=== PATIENT | female | born 1965 ===

== ENCOUNTER → 2020-04-22 08:02 | Outpatient (BNVA) | payer MEDICARE, MEDICAID, SELFPAY | PROVIDERS: PCP Internal Medicine; Referring Provider Internal Medicine; Visit Provider Internal Medicine Endocrinology, Diabetes & Metabolism | DX: Z13.89 Encounter for screening for other disorder (principal) | CPT/HCPCS: 99213 ==

== ENCOUNTER 2020-05-19 07:17 | Outpatient (REF) | payer MEDICARE, MEDICAID, SELFPAY ==
[2020-05-20 22:03] LABS: Adrenocorticotropic Hormone 6 pg/mL (6-50)
[2020-05-26 23:16] LABS: Dexamethasone 179 ng/dL
== END 2020-05-19 07:18 | disposition home or self-care (01) ==
LOC: HO.LAB 07:17
PROVIDERS: PCP Internal Medicine; Visit Provider Internal Medicine Endocrinology, Diabetes & Metabolism
DX: D35.02 Benign neoplasm of left adrenal gland (principal)
CPT/HCPCS: 80299; 82024; 82533

== ENCOUNTER 2020-05-26 06:58 | Outpatient (REF) | payer MEDICARE, MEDICAID, SELFPAY ==
[2020-05-26 08:22] LABS: Free T4 (Free Thyroxine) 1.04 ng/dL (0.71-1.85); Thyroid Stimulating Hormone 0.42 uIU/mL (0.32-4.0)
[2020-05-27 22:32] LABS: Adrenocorticotropic Hormone 7 pg/mL (6-50)
[2020-06-02 16:42] LABS: Saliva Cortisol 0.04 mcg/dL
[2020-06-02 19:22] LABS: Dexamethasone 159 ng/dL
== END 2020-05-26 06:59 | disposition home or self-care (01) ==
LOC: HO.LAB 06:58
PROVIDERS: PCP Internal Medicine; Visit Provider Internal Medicine Endocrinology, Diabetes & Metabolism
DX: D35.02 Benign neoplasm of left adrenal gland (principal)
CPT/HCPCS: 80299; 82024; 82530; 82533; 84439; 84443

== ENCOUNTER 2020-09-02 06:40 | Outpatient (REF) | payer MEDICARE, MEDICAID, SELFPAY ==
[2020-09-08 02:36] LABS: Adrenocorticotropic Hormone <5 pg/mL (6-50)
[2020-09-11 21:26] LABS: Dexamethasone 336 ng/dL
== END 2020-09-02 06:41 | disposition home or self-care (01) ==
LOC: HO.LAB 06:40
PROVIDERS: PCP Internal Medicine; Visit Provider Internal Medicine Endocrinology, Diabetes & Metabolism
DX: D35.02 Benign neoplasm of left adrenal gland (principal)
CPT/HCPCS: 36415; 80299; 82024; 82533

== ENCOUNTER → 2021-08-31 12:27 | Outpatient (BNVA) | payer MEDICARE, MEDICAID, SELFPAY | PROVIDERS: PCP Internal Medicine; Visit Provider Internal Medicine Endocrinology, Diabetes & Metabolism | DX: D35.02 Benign neoplasm of left adrenal gland (principal) | CPT/HCPCS: 99212 ==

== ENCOUNTER 2021-09-24 08:15 | Outpatient (REF) | payer MEDICARE, MEDICAID, SELFPAY ==
[2021-09-24 08:29] LABS: MANUAL DIFF FLAG NO
[2021-09-24 09:12] LABS: Basophils Percent Auto 0.2 % (0-2); Eosinophils Absolute Auto 0.1 X10*3/uL (0.0-0.4); Eosinophils Percent Auto 0.8 % (0-4); Imm Gran Abs Auto 0.03 X10*3/uL (0.00-0.03); Imm Gran Pct Auto 0.3 % (0.0-0.4); Lymphocytes Absolute Auto 2.6 X10*3/uL (1.2-4.9); Mean Corpuscular HGB Conc 34.1 g/dl (31.0-35.0); Mean Corpuscular Hemoglobin 32.7 pg (27.0-33.0); Mean Corpuscular Volume 95.9 fL (80.0-98.0); Mean Platelet Volume 9.5 fL (9.4-12.3); Monocytes Absolute Auto 0.4 X10*3/uL (0.1-1.2); Monocytes Percent Auto 4.3 % (2-11); Neutrophils Absolute Auto 6.4 x10*3/uL (2.0-8.3); Neutrophils Percent Auto 67.4 % (45-73); Platelet Count 207 X10*3/uL (160-400); Red Blood Count 4.59 X10*6/uL (4.20-5.50); White Blood Count 9.5 X10*3/uL (4.8-10.8)
[2021-09-24 09:44] LABS: Alanine Aminotransferase 12 U/L (0-31); Albumin Level 4.4 g/dL (3.5-5.0); Alkaline Phosphatase 65 U/L (39-117); Anion Gap 15 (12-20); Aspartate Amino Transferase 11 U/L (5-31); Bilirubin Total 0.3 mg/dL (0.0-1.0); Blood Urea Nitrogen 16 mg/dL (9-16); Calcium 9.9 mg/dL (8.4-10.2); Carbon Dioxide 24 mmol/L (22-29); Chloride 104 mmol/L (96-108); Cholesterol 284 mg/dL; Estimated Glomerular Filt Rate > 60; Glucose Fasting 107 mg/dL (60-99); HDL Cholesterol 48 mg/dL; LDL Cholesterol Calculated 209 mg/dl; Potassium 4.8 mmol/L (3.3-5.1); Sodium 138 mmol/L (135-145); Total Protein 7.1 g/dL (6.5-8.0); Triglycerides 137 mg/dL
[2021-09-24 10:04] LABS: Cortisol Random < 1.0 ug/dL
[2021-09-24 10:07] LABS: Thyroid Stimulating Hormone 0.68 uIU/mL (0.32-4.0)
[2021-09-24 14:27] LABS: Creatinine Urine 37.27 mg/dL; Microalbumin Urine < 5.0 mg/L
[2021-10-01 15:37] LABS: Dexamethasone 194 ng/dL
== END 2021-09-24 08:16 | disposition home or self-care (01) ==
LOC: HO.LAB 08:15
PROVIDERS: Absent Provider Internal Medicine; PCP Internal Medicine; Visit Provider Internal Medicine Endocrinology, Diabetes & Metabolism
DX: Z00.00 Encounter for general adult medical examination without abnormal findings (principal); E11.9 Type 2 diabetes mellitus without complications; D35.02 Benign neoplasm of left adrenal gland
CPT/HCPCS: 36415; 80053; 80061; 80299; 82043; 82533; 84443; 85025

== ENCOUNTER 2021-10-22 12:11 | Outpatient (REF) | payer MEDICARE, MEDICAID, SELFPAY ==
[2021-10-28 11:21] LABS: Metanephrine, Free 77 pg/mL (<=57); Normetanephrines, Free 142 pg/mL (<=148); Total Metanephrine, Free 219 pg/mL (<=205)
== END 2021-10-22 12:12 | disposition home or self-care (01) ==
LOC: HO.LAB 12:11
PROVIDERS: PCP Internal Medicine; Visit Provider Internal Medicine Endocrinology, Diabetes & Metabolism
DX: D35.02 Benign neoplasm of left adrenal gland (principal)
CPT/HCPCS: 36415; 83835

== ENCOUNTER 2022-06-06 10:38 | Outpatient (REF) | payer MEDICARE, MEDICAID, SELFPAY ==
--- NOTE | ~2022-06-06 | CT_ITS ---
EXAMINATION: CT ABDOMEN WITHOUT AND WITH CONTRAST CLINICAL INFORMATION: Benign neoplasm of left adrenal gland COMPARISON: Previous CT of the abdomen from 2018 and 2019 TECHNIQUE: Contiguous axial thin section helical images of the abdomen were performed before and after the administration of oral contrast and 85 mL of Omnipaque 350 intravenous contrast. The data set was reformatted in the coronal and sagittal planes and reviewed on an independent workstation. This CT examination was performed using dose optimization techniques as appropriate, variously including the following: *Automated exposure control *Adjustment of mA and/or kV according to patient size (this includes techniques or standardized protocols for targeted exams where dose is matched to indication/reason for exam; i.e. extremities or head) *Use of iterative reconstruction technique DLP: 426 mGy-cm FINDINGS: LUNG BASES: Normal LIVER, GALLBLADDER, AND BILIARY TREE: Mild fatty infiltration of the liver. Liver and gallbladder are otherwise normal. PANCREAS: There is question of a small cyst in the uncinate process of the head of the pancreas near the main pancreatic duct measuring up to 1 cm. There is slight prominence of the main pancreatic duct in the head of the pancreas measuring 5 mm. SPLEEN: Normal ADRENAL GLANDS AND KIDNEYS: There is a 2 cm stable low-attenuation left adrenal lesion. Hounsfield units precontrast measure 3. Immediate Hounsfield units postcontrast measure 87. Delayed Hounsfield units postcontrast measure 33. Washout is 62% suggestive of a benign adenoma. This is slightly increased in size from 1.6 cm most recent exam October 2018. The right adrenal gland is normal. The right kidney is normal. There is a 1 cm cyst in the upper pole of the left kidney. No imaging follow-up needed. BOWEL LOOPS: Normal LYMPH NODES: Normal. VASCULAR: Severe atherosclerotic disease of the aorta and visualized iliac arteries. BONES: Mild anterior subluxation of L4 with respect L5 lower lumbar spine facet arthritis. CT/CT abdomen wo/w IV con IMPRESSION: Slight interval increase in size in the left adrenal lesion. This is suggestive of a benign adenoma. Small left renal cyst. Question small cyst in the head of the pancreas and mild dilatation of the main pancreatic duct in the head of the pancreas. Follow-up MR of the pancreas with and without contrast and MRCP recommended. Mild fatty infiltration of the liver. Severe atherosclerotic disease. Fleischner guidelines were followed.
[2022-06-06] MEDS: iohexoL 350 MG/ML 100 ML INFUS..BTL IV (11:42)
[2022-06-07 07:17] LABS: Creatinine POC 0.6 mg/dL (0.5-1.4); GFR POC > 60
== END 2022-06-06 10:39 | disposition home or self-care (01) ==
LOC: HO.CT 10:38
PROVIDERS: Internal Medicine Endocrinology, Diabetes & Metabolism; PCP Internal Medicine; Visit Provider Internal Medicine
DX: D35.02 Benign neoplasm of left adrenal gland (principal)
CPT/HCPCS: 74170; 82565; Q9967

== ENCOUNTER 2022-06-27 07:27 | Outpatient (REF) | payer MEDICARE, MEDICAID, SELFPAY ==
[2022-06-27 07:39] LABS: MANUAL DIFF FLAG NO
[2022-06-27 08:20] LABS: Basophils Percent Auto 0.3 % (0-2); Eosinophils Absolute Auto 0.3 X10*3/uL (0.0-0.4); Eosinophils Percent Auto 3.2 % (0-4); Hematocrit 45.4 % (37.0-47.0); Hemoglobin 15.5 g/dl (12.0-16.0); Imm Gran Abs Auto 0.03 X10*3/uL (0.00-0.03); Imm Gran Pct Auto 0.3 % (0.0-0.4); Lymphocytes Absolute Auto 3.9 X10*3/uL (1.2-4.9); Lymphocytes Percent Auto 39.4 % (20-40); Mean Corpuscular HGB Conc 34.1 g/dl (31.0-35.0); Mean Corpuscular Hemoglobin 32.4 pg (27.0-33.0); Mean Corpuscular Volume 94.8 fL (80.0-98.0); Monocytes Absolute Auto 0.6 X10*3/uL (0.1-1.2); Monocytes Percent Auto 5.9 % (2-11); Neutrophils Percent Auto 50.9 % (45-73); Platelet Count 188 X10*3/uL (160-400); Red Blood Count 4.79 X10*6/uL (4.20-5.50); Red Cell Distribution Width 13.3 % (11.0-16.0); White Blood Count 9.9 X10*3/uL (4.8-10.8)
[2022-06-27 09:37] LABS: Thyroid Stimulating Hormone 2.71 uIU/mL (0.32-4.0)
[2022-06-27 10:05] LABS: Alanine Aminotransferase 20 U/L (0-31); Albumin Level 4.3 g/dL (3.5-5.0); Alkaline Phosphatase 64 U/L (39-117); Anion Gap 16 (12-20); Aspartate Amino Transferase 16 U/L (5-31); Bilirubin Total 0.3 mg/dL (0.0-1.0); Blood Urea Nitrogen 14 mg/dL (9-16); Calcium 9.6 mg/dL (8.4-10.2); Carbon Dioxide 24 mmol/L (22-29); Chloride 106 mmol/L (96-108); Cholesterol 287 mg/dL; Estimated Glomerular Filt Rate > 60; Glucose Fasting 119 mg/dL (60-99); HDL Cholesterol 39 mg/dL; Iron 85 mcg/dL (30-160); LDL Cholesterol Calculated 199 mg/dl; Percent Iron Saturation 26 % (15-50); Potassium 4.9 mmol/L (3.3-5.1); Sodium 141 mmol/L (135-145); Total Iron Binding Capacity 331 mcg/dL (228-428); Triglycerides 249 mg/dL; Unsaturated Iron Binding 246 ug/dL
== END 2022-06-27 07:28 | disposition home or self-care (01) ==
LOC: HO.LAB 07:27
PROVIDERS: Internal Medicine Endocrinology, Diabetes & Metabolism; PCP Internal Medicine; Visit Provider Internal Medicine
DX: Z13.0 Encounter for screening for diseases of the blood and blood-forming organs and certain disorders involving the immune mechanism (principal); E61.1 Iron deficiency; E03.9 Hypothyroidism, unspecified; E78.5 Hyperlipidemia, unspecified; I10 Essential (primary) hypertension
CPT/HCPCS: 36415; 80053; 80061; 83540; 84443; 85025

== ENCOUNTER → 2022-08-11 12:28 | Outpatient (BNVA) | payer MEDICARE, MEDICAID, SELFPAY | PROVIDERS: PCP Internal Medicine; Referring Provider Internal Medicine; Visit Provider Internal Medicine Cardiovascular Disease | DX: R07.2 Precordial pain (principal); F17.210 Nicotine dependence, cigarettes, uncomplicated | CPT/HCPCS: 93005; 99202 ==

== ENCOUNTER → 2022-08-22 08:41 | Outpatient (REF) | payer MEDICARE, MEDICAID, SELFPAY ==
--- NOTE | 2022-08-22 08:44 | CA_ITS ---
Transthoracic Echocardiogram Patient (Last, First, Middle): Arabella Estrada R Gender: Female Date of : 1965 Age: 57 Procedure Date: 08/22/2022 Procedure Type: Transthoracic Echocardiogram Location: OP Height: 157.48 cm Weight: 64.41 kg BSA: 1.65 m2 Heart Rate: bpm BP: 126 / 84 mmHg Tower Helper: NEERAJ Referring MD: Alexsander Edmonds MD Symptoms: R07.2 - Precordial pain Study Quality: Adequate ECG Rhythm: Sinus Conclusions: - The left ventricular systolic function is normal. The calculated ejection fraction is 68% by biplane method. - There is moderately increased left ventricular wall thickness. - There is mild aortic valve stenosis. - There is mild mitral annular calcification. Findings Left Ventricle Normal left ventricular cavity size. There is moderately increased left ventricular wall thickness. The left ventricular systolic function is normal. The calculated ejection fraction is 68% by biplane method. There is no evidence of regional wall motion abnormalities. E/E prime ratio is >15, consistent with elevated filling pressures. Evidence suggests grade I (mild) diastolic dysfunction. LV peak GLS -13.2% (diminished). Right Ventricle Normal right ventricular cavity size and systolic function. Atria Both atria are normal in size. Aortic Valve There is a normal trileaflet aortic valve. There is mild calcification of the aortic valve. There is mild aortic valve stenosis. There is no aortic valve regurgitation. Mitral Valve There is mild mitral annular calcification. There is no mitral valve regurgitation. There is no mitral valve stenosis. Pulmonic Valve There is trace pulmonic valve regurgitation. Tricuspid Valve There is trace tricuspid valve regurgitation. There is no evidence of pulmonary hypertension. Great Vessels The asc aorta is normal in size. Small plaque is seen in the sino tubular ridge. Venous The inferior vena cava is normal in size and collapses greater than 50% with inspiration. Pericardium/Pleural There is no evidence of pericardial effusion. Prior Study Comparison No prior study available for comparison. Measurements 2D Linear Measurements IVSd: 1.22 0.6-0.9/0.6-1.0 cm LVIDd: 3.74 3.9-5.3/4.2-5.9 cm LVIDd Index: 2.27 2.4-3.2/2.2-3.1 cm/m2 LVIDs: 1.73 2.0-3.6 cm LVPWd: 1.22 0.7-1.1 cm LA Diam: 3.70 2.7-3.8/3.0-4.0 cm LAIDs Index: 2.24 1.5-2.3 cm/m2 LV Mass: 191.06 67-162/88-224 g LV Mass Index: 115.80 43-95/49-115 g/m2 LVOT Diam: 2.00 3.0+(-)1.3 cm 2D Systolic Function EF 4C: 64.90 >55% EF 2C: 69.00 >55% EF BiP: 67.80 >55% Mitral Valve MV Pk E: 0.73 MV PK A: 0.73 MV Decel Time: 196.00 E/A: 1.00 E'Lateral: 4.46 E'Medial: 6.09 E/E' Med: 12.00 E/E' Lat: 16.40 PHT: 57.00 MVA PHT: 3.86 Decel [place]: 3.75 Aortic Valve AoV Pk Clark: 1.90 AoV Mn Clark: 1.23 AoV VTI: 0.36 AoV Pk Grad: 14.00 Aov Mn Grad: 7.00 RADHA Cont.VTI: 1.67 LVOT LVOT Pk Clark: 0.98 LVOT Mn Clark: 0.60 LVOT VTI: 0.19 LVOT Pk Grad: 4.00 LVOT Mn Grad: 2.00 LVOT Diam: 2.00 LVOT Area: 3.14 Diastolic Function MV Pk E: 0.73 MV Pk A: 0.73 E/A: 1.00 E'Medial: 6.09 E/E' Med: 12.00 E' Laterial: 4.46 E/E' Lat: 16.40 Right Ventricle TAPSE (mm): 17.70 TVS' Clark: 14.30 Tricuspid Valve TR Pk Clark: 1.81 TR Pk Grad: 13.00 RA Press: 3.00 RVSP: 16.00 Great Vessels Aorta Sinus of Valsalva: 3.02 2.0-3.5 cm Ao Asc: 3.10 2.1-3.4 cm Updated in Other Vendor System with Status of Final Bright Tee MD electronically signed on 08/22/2022 12:40:28 PM with status of Final
--- NOTE | 2022-08-22 08:44 | CA_ITS ---
Acquisition Time: 2022-08-22 10:03:10 Total Exercise Time: 00:02:50 Test Indications: CP Medications: SEE H Protocol: KENDLAL Max HR: 139 BPM 84% of Pred: 164 BPM Max BP: 228/088 mmHG Max Work Load: 4.6 METS Exercise stress test with exercise 2 min 50 sec of Kendall protocol, achieving 83% MPHR, with request to stop due to back and sciatica discomfort, No anginal symptoms, without arrythmia, with hypertensive response to exercise with max BP 228/88, with nondiagnostic EKG for ischemia due to suboptimal heart rate and exercise time, howevere no ischemic changes noted at acheved workload. In recovery BP returned to 130/88. Test reviewed with Dr Riddle. Referred By: Alexsander Edmonds Overread By: WALT SHEPPARD
== END ==
LOC: HO.CARD 08:41
PROVIDERS: PCP Internal Medicine; Visit Provider Internal Medicine Cardiovascular Disease
DX: R07.2 Precordial pain (principal)
CPT/HCPCS: 93017; 93306; 93356

== ENCOUNTER → 2022-09-01 12:16 | Outpatient (BNVA) | payer MEDICARE, MEDICAID, SELFPAY | PROVIDERS: PCP Internal Medicine; Visit Provider Internal Medicine Endocrinology, Diabetes & Metabolism | DX: D35.02 Benign neoplasm of left adrenal gland (principal) | CPT/HCPCS: 99212 ==

== ENCOUNTER → 2022-10-13 13:01 | Outpatient (BNVA) | payer MEDICARE, MEDICAID, SELFPAY | PROVIDERS: PCP Internal Medicine; Visit Provider Nurse Practitioner Family | DX: R07.2 Precordial pain (principal); R03.0 Elevated blood-pressure reading, without diagnosis of hypertension; I35.0 Nonrheumatic aortic (valve) stenosis; E78.5 Hyperlipidemia, unspecified; E11.9 Type 2 diabetes mellitus without complications; Z65.9 Problem related to unspecified psychosocial circumstances | CPT/HCPCS: 99212 ==

== ENCOUNTER 2023-02-14 12:49 | Outpatient (AMB) | payer MEDICARE, MEDICAID, SELFPAY ==
[2023-02-14 12:53] VITALS: BP 160/90; PULSE 103; BMI 27.0
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
== END 2023-02-14 13:36 | disposition home or self-care (01) ==
PROVIDERS: PCP Internal Medicine; Referring Provider Internal Medicine; Visit Provider Nurse Practitioner Family
DX: R07.2 Precordial pain (principal); R03.0 Elevated blood-pressure reading, without diagnosis of hypertension; E11.9 Type 2 diabetes mellitus without complications; E78.5 Hyperlipidemia, unspecified; Z65.9 Problem related to unspecified psychosocial circumstances; I35.0 Nonrheumatic aortic (valve) stenosis
CPT/HCPCS: 93010; 99214

== ENCOUNTER → 2023-02-14 12:49 | Outpatient (BNVA) | payer MEDICARE, MEDICAID, SELFPAY | PROVIDERS: PCP Internal Medicine; Referring Provider Internal Medicine; Visit Provider Nurse Practitioner Family | DX: R07.2 Precordial pain (principal); R03.0 Elevated blood-pressure reading, without diagnosis of hypertension; E11.9 Type 2 diabetes mellitus without complications; E78.5 Hyperlipidemia, unspecified; I35.0 Nonrheumatic aortic (valve) stenosis; Z65.9 Problem related to unspecified psychosocial circumstances | CPT/HCPCS: 93005; 99212 ==

== ENCOUNTER 2023-04-06 14:15 | Outpatient (REF) | payer MEDICARE, MEDICAID, SELFPAY ==
[2023-04-06 15:35] LABS: Anion Gap 15 (12-20); Blood Urea Nitrogen 12 mg/dL (9-16); Calcium 9.3 mg/dL (8.4-10.2); Carbon Dioxide 24 mmol/L (22-29); Chloride 107 mmol/L (96-108); Estimated Glomerular Filt Rate > 60; Glucose Random 123 mg/dL (60-115); Potassium 4.2 mmol/L (3.3-5.1); Sodium 142 mmol/L (135-145)
== END 2023-04-06 14:16 | disposition home or self-care (01) ==
LOC: HO.LAB 14:15
PROVIDERS: PCP Internal Medicine; Visit Provider Nurse Practitioner Family
DX: R07.2 Precordial pain (principal); I25.10 Atherosclerotic heart disease of native coronary artery without angina pectoris
CPT/HCPCS: 36415; 80048

== ENCOUNTER 2023-05-15 12:42 | Outpatient (AMB) | payer MEDICARE, MEDICAID, SELFPAY ==
[2023-05-15 13:02] VITALS: BP 126/93; PULSE 112; BMI 28.1
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
== END 2023-05-15 13:38 | disposition home or self-care (01) ==
PROVIDERS: PCP Internal Medicine; Visit Provider Nurse Practitioner Family
DX: R07.2 Precordial pain (principal); R03.0 Elevated blood-pressure reading, without diagnosis of hypertension; E11.9 Type 2 diabetes mellitus without complications; E78.5 Hyperlipidemia, unspecified; Z65.9 Problem related to unspecified psychosocial circumstances; I35.0 Nonrheumatic aortic (valve) stenosis
CPT/HCPCS: 99214

== ENCOUNTER → 2023-05-15 12:42 | Outpatient (BNVA) | payer MEDICARE, MEDICAID, SELFPAY | PROVIDERS: PCP Internal Medicine; Visit Provider Nurse Practitioner Family | DX: R07.2 Precordial pain (principal); I25.10 Atherosclerotic heart disease of native coronary artery without angina pectoris; I35.0 Nonrheumatic aortic (valve) stenosis; R03.0 Elevated blood-pressure reading, without diagnosis of hypertension; E11.9 Type 2 diabetes mellitus without complications; E78.5 Hyperlipidemia, unspecified; Z73.3 Stress, not elsewhere classified; Z79.82 Long term (current) use of aspirin | CPT/HCPCS: 99212 ==

== ENCOUNTER 2023-09-07 12:54 | Outpatient (AMB) | payer MEDICARE, MEDICAID, SELFPAY ==
--- NOTE | 2023-09-07 12:56 | MHC.OFFVIS ---
Intake Vital Signs 09/07/23 12:57 Height 5 ft 2 in Weight 157 lb 10.088 oz BMI 28.8 BP 156/92 H Blood Pressure Location Lt brachial Position Sitting Pulse 97 Pulse Source Pulse Oximeter Intake Visit Reasons: f/u adrenal mass Intake Note: Patient present today for Adrenal mass follow up visit. Accounts Payable Assistant Required: No Accompanied by: Self / Same As Patient Allergies acetaminophen [From TYLENOL] Allergy (Unknown, Verified 09/07/23 13:02) RASH azithromycin [Zithromax Z-Dinesh] Allergy (Unknown, Verified 09/07/23 13:02) GI upset Sulfa (Sulfonamide Antibiotics) [SULFA (SULFONAMIDE ANTIBIOTICS)] Allergy (Unknown, Verified 09/07/23 13:02) ANAPHALACTIC zolpidem Adverse Reaction (Mild, Verified 09/07/23 13:02) Hallucinations HPI HPI Comments History of Present Illness Details 57 yo female today for fup , for left adrenal mass. Last year she has a normal dexamethasone suppression test. She is here for fup left adrenal incidentaloma, which has been stable has low density HU 8, contrast washout is > 73 %, all hormones are normal no excess. She had MRI at [facility], non Contrast on 10/04/17 the left adrenal nodule was not appreciated in the test. She has PMH of GERD, asthma, chronic back pain, depression, questionable history of diabetes mellitus. She was found to have a left adrenal mass measuring 1.6 cm and the Hounsfield units was 95 but the washout the Hounsfield units was not reported. She had negative work up for hyperaldosteronism, [place] or pheochromocytoma. She has a change in skin color in her left side of the body ( flank and upper leg) she denies rash, nausea, vomiting, positive diarrhea, she was placed on pancreatic enzymes and is not helping. Denies palpitations, sweating, flushing, headache, anxiety, irritability. Her grand father had pancreatic cancer, grand mother had breast cancer. She has a cancerous polyp from colon removed few years ago, she had total hysterectomy for cervical cancer 28 years ago. She was smoker since age 15 to 1.5 year ago. heavy smoker. 10/15/18 CT abdomen. There is a left adrenal 1.5 x 1.5 cm lesion. On the precontrast, it measures -0.5 Hounsfield units. Immediately postcontrast, it measures 61 Hounsfield units and delayed 10 minute washout measures 23 Hounsfield units. The absolute washout is 61.8% and relative washout is 62.8%. These above findings are consistent with adenoma. She does complain of some facial swelling and chronic easy bruising as well as episodes of sweating associated with headache. A plasma normetanephrine and metanephrine level was slightly elevated. Had endoscopy done. Did not get 24 hr urine done yet [facility] Medical History Back pain Diabetes mellitus History of cervical cancer Obesity (BMI 30-39.9) Anxiety Asthma Adenoma of left adrenal gland Surgical History History of lumbar laminectomy Hx of knee surgery Hx of shoulder surgery History of back surgery Hx of hysterectomy Family History Father Heart disease Hypertension Diabetes Mother No problems noted. Brother No problems noted. Brother No problems noted. Brother No problems noted. Son No problems noted. Social History Housing: Apartment Alcohol intake: never Patient Tobacco Use Status: Current everyday Tobacco user Tobacco use type: Cigarette Cigarettes Per Day: 8 Years Smoked: 25 years e-Cigarette/Vaping Use: Never Used Second Hand Smoke Exposure: No service: No Current occupational status: disabled Cognitive needs: No Hearing needs: No Vision needs: Yes (glasses) Physical Exam Vital Signs: Last Vital Signs Pulse 97 09/07/23 12:57 BP 156/92 H 09/07/23 12:57 BMI result Body Mass Index 28.8 Assessment & Plan Assessment & Plan (1) Adenoma of left adrenal gland: Code(s): D35.02 - Benign neoplasm of left adrenal gland Plan This is a 56-year-old white female with a history of left adrenal mass with imaging characteristics suggestive of benign adenoma. It appears to be non secretory. Plan is to obtain a 24 hour urine for metanephrines and normetanephrines as I think the plasma metanephrine slight elevation does not reflective pheochromocytoma Coding Level of Care Code Est Pt Level 3 (10654) Diagnoses Adenoma of left adrenal gland D35.02
[2023-09-07 12:57] VITALS: BP 156/92; PULSE 97; BMI 28.8
== END 2023-09-07 13:21 | disposition home or self-care (01) ==
PROVIDERS: PCP Internal Medicine; Visit Provider Internal Medicine Endocrinology, Diabetes & Metabolism
DX: D35.02 Benign neoplasm of left adrenal gland (principal)
CPT/HCPCS: 99213

== ENCOUNTER → 2023-09-07 12:54 | Outpatient (BNVA) | payer MEDICARE, MEDICAID, SELFPAY | PROVIDERS: Visit Provider Internal Medicine Endocrinology, Diabetes & Metabolism | DX: D35.02 Benign neoplasm of left adrenal gland (principal) | CPT/HCPCS: 99212 ==

== ENCOUNTER 2023-12-14 13:21 | Outpatient (AMB) | payer MEDICARE, MEDICAID, SELFPAY ==
[2023-12-14 13:44] VITALS: BP 140/68; PULSE 100; BMI 26.6
--- NOTE | 2023-12-14 13:44 | A.OFFVIS_ITS ---
Vital Signs 12/14/23 13:44 Height 5 ft 2 in Weight 145 lb 8.081 oz BMI 26.6 BP 140/68 H Blood Pressure Location Lt brachial Position Sitting Pulse 100 Pulse Source Pulse Oximeter Intake Visit Reasons: 6 mth f/up Allergies acetaminophen [From TYLENOL] Allergy (Unknown, Verified 09/07/23 13:02) RASH azithromycin [Zithromax Z-Dinesh] Allergy (Unknown, Verified 09/07/23 13:02) GI upset Sulfa (Sulfonamide Antibiotics) [SULFA (SULFONAMIDE ANTIBIOTICS)] Allergy (Unknown, Verified 09/07/23 13:02) ANAPHALACTIC zolpidem Adverse Reaction (Mild, Verified 09/07/23 13:02) Hallucinations Medication List - Last Reconciled 12/14/23 by ELOINA Mistry albuterol sulfate 90 mcg/actuation 2 puffs inhalation Q4-6H PRN ammonium lactate 12% 1 appl topical BID blood sugar diagnostic (FreeStyle Lite Strips) check blood sugars twice a day blood-glucose meter (FreeStyle Lite Meter kit) to check blood sugars once a days carisoprodol (Soma) 350 mg PO QID diazepam (Valium) 2 mg PO TID PRN fluocinonide 0.05% appl topical BID lancets (FreeStyle Lancets) to check blood sugars twice a day lidocaine 1.8% (ZTlido) 0 patches topical metformin 500 mg PO BID metoprolol succinate ER 25 mg PO DAILY montelukast (Singulair) 10 mg PO DAILY 90 days mupirocin 2% 1 appl topical TID omeprazole 40 mg PO BID ondansetron HCl 4 mg PO Q8H oxycodone 20 mg PO DAILY HPI HPI 6 mth f/up: Details: Arabella is a 58-year-old female past medical history diabetes, hyperlipidemia, smoking, coronary calcifications on CT scan, nonobstructive CAD who presents for follow-up. Today she reports that she is still under constant stress situations. She tells me that since her last visit her son got and this situation was upsetting for her. She also states that her biological father and she was not told until days later. She is still not able to see her son's dog which causes her extreme upset. -clinically she has no concerning symptoms. She has not been getting the sharp chest pains like she had in the past. She has no exertional discomfort. No concerning shortness of breath, palpitations, presyncope, syncope, PND, orthopnea or edema. She tells me her heart is always going fast. She has been only taking half a tablet of the metoprolol. She believes her cholesterol is elevated due to high stress levels and still is not interested in medication to treat this. She continues to smoke a few cigarettes per day and uses it as stress reduction. [facility] Medical History Back pain Diabetes mellitus History of cervical cancer Obesity (BMI 30-39.9) Anxiety Asthma Adenoma of left adrenal gland Surgical History History of lumbar laminectomy Hx of knee surgery Hx of shoulder surgery History of back surgery Hx of hysterectomy Family History Father Heart disease Hypertension Diabetes Mother No problems noted. Brother No problems noted. Brother No problems noted. Brother No problems noted. Son No problems noted. Social History Housing: Apartment Alcohol intake: never Patient Tobacco Use Status: Current everyday Tobacco user Tobacco use type: Cigarette Cigarettes Per Day: 8 Years Smoked: 25 years e-Cigarette/Vaping Use: Never Used Second Hand Smoke Exposure: No service: No Current occupational status: disabled Cognitive needs: No Hearing needs: No Vision needs: Yes (glasses) Review of Systems Const Details: high stress All systems reviewed & are unremarkable except as noted in HPI and below Denies weakness ENT Denies dizziness Card Denies chest pain, Denies chest pain with activity, Denies syncope, Denies rapid heart rate, Denies pedal edema, Denies edema, Denies leg edema, Denies lightheadedness, Denies palpitations, Denies dyspnea, Denies dyspnea on exertion and Denies orthopnea Resp Denies cough, Denies dyspnea and Denies dyspnea on exertion GI Details: reflux Denies hematochezia and Denies change in stool character Musc Denies abnormal gait, Denies muscle cramps, Denies muscle weakness, Denies numbness, Denies radiating pain into limb and Denies tingling Neuro Denies abnormal gait, Denies dizziness, Denies syncope, Denies numbness, Denies tingling and Denies weakness Endo Denies palpitations Physical Exam Vital Signs: Last Vital Signs Pulse 100 12/14/23 13:44 BP 140/68 H 12/14/23 13:44 BMI result Body Mass Index 26.6 Const Other: upset and tearful during visit. General: cooperative, comfortable and no acute distress Orientation/consciousness: patient oriented x3 Neck Neck: Yes normal visual inspection Resp Effort & Inspection: normal respiratory effort Auscultation: clear to auscultation bilaterally, no crackles, no rales, no rhonchi and no wheezes Cardio Jugular venous distension: no JVD Rate: regular rate Rhythm: regular rhythm Heart sounds: S1 normal heart sound present, S2 normal heart sound present, no gallops, no murmurs and no rubs Neuro General: patient oriented x3 Extrem General: Yes normal to inspection Psych Appearance: grossly normal Mental Status: mental status grossly normal Speech and movement: Normal speech and movement present Assessment & Plan Assessment & Plan (1) Precordial chest pain: Code(s): R07.2 - Precordial pain Category: Medical Plan: Prior reports of Reports of mid chest discomfort under situations of high stress. She denies any exertional chest discomfort. She does have cardiac risk factors of diabetes, hyperlipidemia, smoking. Recent CT scan of the chest is showing significant coronary calcifications. She underwent a echocardiogram on 08/22/2022 showing EF 68%, moderate increase in the LV wall thickness, mild aortic stenosis, mild mitral annular calcification. Exercise stress test done on 08/22/2022 with exercise 2 minutes and 50 seconds with need to stop due to back pain and sciatica discomfort, achieving 83% of MPHR, no EKG changes noted however blood pressure 228/88. Overall test suboptimal. She refused to undergo a nuclear stress test. A CTA of the coronary arteries was done on 04/28/2023 showing no evidence of hemodynamically significant coronary artery disease, small plaque in the distal left main extending into the proximal LAD with mild stenosis of approximately 35% in the proximal LAD and less than 25% in the left main, scattered minimal stenosis in the remaining LAD and RCA. At this time she reports no anginal sounding symptoms. The need for ongoing risk factor modification reviewed with her. She needs good cholesterol, blood pressure and blood sugar control. She is on aspirin 81 mg daily. Labs done 06/27/2022 showed LDL 199. Discussed statin use and she declines. She is on metoprolol XL 25 mg daily but tells me she only takes half a tablet. Instructed to take the whole tablet which she tells me she will do. Signs and symptoms of angina reviewed with her. Emergency care if ever needed for symptoms. Cardiology follow-up in 6 months, sooner if needed. (2) Elevated blood-pressure reading without diagnosis of hypertension: Code(s): R03.0 - Elevated blood-pressure reading, without diagnosis of hypertension Category: Medical Plan: Mildly elevated today. She is anxious during this visit and crying at times. She is describing all the stress in her life and I offered her comfort in words. Instructed take the whole tablet of metoprolol daily instead of half. Stress reduction activities reviewed. (3) Diabetes mellitus: Code(s): E11.9 - Type 2 diabetes mellitus without complications Category: Medical Plan: Hemoglobin A1c goal less than 7. She should be on statin therapy but declines. Followed by PCP (4) Hyperlipidemia: Code(s): E78.5 - Hyperlipidemia, unspecified Category: Medical Plan: [place] LDL goal less than 70 and patient with diabetes and coronary calcifications. Labs done on 06/27/2022 shows LDL 199. Declines statin and PCSK9 inhibitor. (5) Other social stressor: Code(s): Z65.9 - Problem related to unspecified psychosocial circumstances Category: Social Hx Plan: Tearful during this visit, again with reports stressful things in her life. Spent additional 10 minutes listening worries and offering comfort. She says that she has support outside of this office. Denies need for more emergency care at this time. (6) Aortic stenosis: Code(s): I35.0 - Nonrheumatic aortic (valve) stenosis Category: Medical Plan: Mild aortic stenosis noted on echocardiogram. Will need to be followed periodically with echocardiogram. Plan Time spent on chart review, documentation, interview and assessment Coding Level of Care Code Est Pt Level 4 (06048) Diagnoses Precordial chest pain R07.2 Elevated blood-pressure reading without diagnosis of hypertension R03.0 Diabetes mellitus E11.9 Hyperlipidemia E78.5 Other social stressor Z65.9 Aortic stenosis I35.0 Time Spent (min) 30
== END 2023-12-14 14:22 | disposition home or self-care (01) ==
PROVIDERS: PCP Internal Medicine; Visit Provider Nurse Practitioner Family
DX: R07.2 Precordial pain (principal); R03.0 Elevated blood-pressure reading, without diagnosis of hypertension; E11.9 Type 2 diabetes mellitus without complications; E78.5 Hyperlipidemia, unspecified; Z65.9 Problem related to unspecified psychosocial circumstances; I35.0 Nonrheumatic aortic (valve) stenosis
CPT/HCPCS: 99214

== ENCOUNTER → 2023-12-14 13:21 | Outpatient (BNVA) | payer MEDICARE, MEDICAID, SELFPAY | PROVIDERS: PCP Internal Medicine; Visit Provider Nurse Practitioner Family | DX: R07.2 Precordial pain (principal); R03.0 Elevated blood-pressure reading, without diagnosis of hypertension; I35.0 Nonrheumatic aortic (valve) stenosis; E11.9 Type 2 diabetes mellitus without complications; E78.5 Hyperlipidemia, unspecified; Z65.9 Problem related to unspecified psychosocial circumstances | CPT/HCPCS: 99212 ==

== ENCOUNTER 2024-03-01 11:58 | Outpatient (REF) | payer MEDICARE, MEDICAID, SELFPAY ==
[2024-03-01 13:30] LABS: Creatinine, mg/dL 52.03
[2024-03-01 14:29] LABS: Creatinine, 24Hr Urine 0.9 G/Day (1.0-2.0); Total Volume 24 Hour Urine 1800 mL
[2024-03-07 13:33] LABS: Metanephrine, Free 24U 141 mcg/24 h (90-315); Normetanephrine, Free 24U 470 mcg/24 h (122-676); Total Metanephrine, Free 24U 611 mcg/24 h (224-832); Total Volume 24U 1800 mL
== END 2024-03-01 11:59 | disposition home or self-care (01) ==
LOC: HO.LNP 11:58
PROVIDERS: Visit Provider Internal Medicine Endocrinology, Diabetes & Metabolism
DX: D35.02 Benign neoplasm of left adrenal gland (principal)
CPT/HCPCS: 82570; 83835

== ENCOUNTER 2024-03-07 12:46 | Outpatient (AMB) | payer MEDICARE, MEDICAID, SELFPAY ==
--- NOTE | 2024-03-07 12:47 | A.OFFVIS_ITS ---
Vital Signs 03/07/24 12:48 Height 5 ft 2 in Weight 153 lb 0.013 oz BMI 28.0 BP 152/94 H Blood Pressure Location Rt brachial Position Sitting Pulse 101 H Pulse Source Pulse Oximeter Intake Visit Reasons: f/u adrenal adenoma/CONFIRMED Intake Note: Patient present today for Adrenal Adenoma follow up. 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 Accompanied by: Self / Same As Patient Allergies acetaminophen [From TYLENOL] Allergy (Unknown, Verified 03/07/24 12:50) RASH azithromycin [Zithromax Z-Dinesh] Allergy (Unknown, Verified 03/07/24 12:50) GI upset Sulfa (Sulfonamide Antibiotics) [SULFA (SULFONAMIDE ANTIBIOTICS)] Allergy (Unknown, Verified 03/07/24 12:50) ANAPHALACTIC zolpidem Adverse Reaction (Mild, Verified 03/07/24 12:50) Hallucinations Medication List - Last Reconciled 03/07/24 by Ambrosio Vyas MD albuterol sulfate 90 mcg/actuation 2 puffs inhalation Q4-6H PRN ammonium lactate 12% 1 appl topical BID blood sugar diagnostic (FreeStyle Lite Strips) check blood sugars twice a day blood-glucose meter (FreeStyle Lite Meter kit) to check blood sugars once a days carisoprodol (Soma) 350 mg PO QID diazepam (Valium) 2 mg PO TID PRN fluocinonide 0.05% appl topical BID lancets (FreeStyle Lancets) to check blood sugars twice a day lidocaine 1.8% (ZTlido) 0 patches topical metformin 500 mg PO BID metoprolol succinate ER 25 mg PO DAILY montelukast (Singulair) 10 mg PO DAILY 90 days mupirocin 2% 1 appl topical TID omeprazole 40 mg PO BID ondansetron HCl 4 mg PO Q8H oxycodone 20 mg PO DAILY HPI Comments Details: 57 yo female today for fup , for left adrenal mass. Last year she has a normal dexamethasone suppression test. She is here for fup left adrenal incidentaloma, which has been stable has low density HU 8, contrast washout is > 73 %, all hormones are normal no excess. She had MRI at [facility], non Contrast on 10/04/17 the left adrenal nodule was not appreciated in the test. She has PMH of GERD, asthma, chronic back pain, depression, questionable history of diabetes mellitus. She was found to have a left adrenal mass measuring 1.6 cm and the Hounsfield units was 95 but the washout the Hounsfield units was not reported. She had negative work up for hyperaldosteronism, valentina or ph eochromocytoma. She has a change in skin color in her left side of the body ( flank and upper leg) she denies rash, nausea, vomiting, positive diarrhea, she was placed on pancreatic enzymes and is not helping. Denies palpitations, sweating, flushing, headache, anxiety, irritability. Her grand father had pancreatic cancer, grand mother had breast cancer. She has a cancerous polyp from colon removed few years ago, she had total hysterectomy for cervical cancer 28 years ago. She was smoker since age 15 to 1.5 year ago. heavy smoker. 10/15/18 CT abdomen. There is a left adrenal 1.5 x 1.5 cm lesion. On the precontrast, it measures -0.5 Hounsfield units. Immediately postcontrast, it measures 61 Hounsfield units and delayed 10 minute washout measures 23 Hounsfield units. The absolute washout is 61.8% and relative washout is 62.8%. These above findings are consistent with adenoma. She does complain of some facial swelling and chronic easy bruising as well as episodes of sweating associated with headache. A plasma normetanephrine and metanephrine level was slightly elevated. .t 24 hr urine is pending for mets, nor mets . Has spells with sweating and palpitations PFSH Medical History Back pain Diabetes mellitus History of cervical cancer Obesity (BMI 30-39.9) Anxiety Asthma Adenoma of left adrenal gland Surgical History History of lumbar laminectomy Hx of knee surgery Hx of shoulder surgery History of back surgery Hx of hysterectomy Family History Father Heart disease Hypertension Diabetes Mother No problems noted. Brother No problems noted. Brother No problems noted. Brother No problems noted. Son No problems noted. Social History Housing: Apartment Alcohol intake: never Patient Tobacco Use Status: Current everyday Tobacco user Tobacco use type: Cigarette Cigarettes Per Day: 8 Years Smoked: 25 years e-Cigarette/Vaping Use: Never Used Second Hand Smoke Exposure: No service: No Current occupational status: disabled Cognitive needs: No Hearing needs: No Vision needs: Yes (glasses) Assessment & Plan Assessment & Plan (1) Adenoma of left adrenal gland: Code(s): D35.02 - Benign neoplasm of left adrenal gland Category: Medical Plan This is a 56-year-old white female with a history of left adrenal mass with imaging characteristics suggestive of benign adenoma. It appears to be non se cretory. Plan is to check 24 hour urine for metanephrines and normetanephrines as I think the plasma metanephrine slight elevation does not reflective pheochromocytoma. Assuming 24 hour urine is normal, loud patient follow-up in 1 year's time Coding Level of Care Code Est Pt Level 3 (00784) Diagnoses Adenoma of left adrenal gland D35.02
[2024-03-07 12:48] VITALS: BP 152/94; PULSE 101; BMI 28.0
== END 2024-03-07 13:14 | disposition home or self-care (01) ==
PROVIDERS: PCP Internal Medicine; Visit Provider Internal Medicine Endocrinology, Diabetes & Metabolism
DX: D35.02 Benign neoplasm of left adrenal gland (principal)
CPT/HCPCS: 99213

== ENCOUNTER → 2024-03-07 12:46 | Outpatient (BNVA) | payer MEDICARE, MEDICAID, SELFPAY | PROVIDERS: PCP Internal Medicine; Visit Provider Internal Medicine Endocrinology, Diabetes & Metabolism | DX: D35.02 Benign neoplasm of left adrenal gland (principal) | CPT/HCPCS: 99212 ==

== ENCOUNTER 2024-05-16 11:10 | Outpatient (AMB) | payer MEDICARE, MEDICAID, SELFPAY ==
--- NOTE | 2024-05-16 11:14 | A.OFFPC_ITS ---
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 Accompanied by: Self / Same As Patient Allergies acetaminophen [From TYLENOL] Allergy (Unknown, Verified 05/16/24 11:15) RASH azithromycin [Zithromax Z-Dinesh] Allergy (Unknown, Verified 05/16/24 11:15) GI upset Sulfa (Sulfonamide Antibiotics) [SULFA (SULFONAMIDE ANTIBIOTICS)] Allergy (Unknown, Verified 05/16/24 11:15) ANAPHALACTIC zolpidem Adverse Reaction (Mild, Verified 05/16/24 11:15) Hallucinations Medication List - Last Reconciled 05/16/24 by Jerry López MD albuterol sulfate 90 mcg/actuation 2 puffs inhalation Q4-6H PRN ammonium lactate 12% 1 appl topical BID blood sugar diagnostic (FreeStyle Lite Strips) check blood sugars twice a day blood-glucose meter (FreeStyle Lite Meter kit) to check blood sugars once a days carisoprodol (Soma) 350 mg PO QID cephalexin 250 mg PO Q6H diazepam (Valium) 2 mg PO TID PRN fluconazole (Diflucan) 100 mg PO DAILY fluocinonide 0.05% appl topical BID lancets (FreeStyle Lancets) to check blood sugars twice a day lidocaine 1.8% (ZTlido) 0 patches topical metformin 500 mg PO BID montelukast (Singulair) 10 mg PO DAILY 90 days mupirocin 2% 1 appl topical TID omeprazole 40 mg PO BID ondansetron HCl 4 mg PO Q8H oxycodone 20 mg PO DAILY Tobacco use date assessed: 05/16/24 Dental Screening Dental Screen Date: 05/16/24 Did you have a dental visit in the last 12 months?: Yes Did you have a dental problem in the last 6 months where you did not have access to dental care?: No Was dental information given to patient?: Patient has dentist HPI left foot swelling HPI Details trauma left foot a week ago PFSH Medical History Back pain Diabetes mellitus History of cervical cancer Obesity (BMI 30-39.9) Anxiety Asthma Adenoma of left adrenal gland Surgical History History of lumbar laminectomy Hx of knee surgery Hx of shoulder surgery History of back surgery Hx of hysterectomy Family History Father Heart disease Hypertension Diabetes Mother No problems noted. Brother No problems noted. Brother No problems noted. Brother No problems noted. Son No problems noted. Social History Housing: Apartment Alcohol intake: never Patient Tobacco Use Status: Current everyday Tobacco user Tobacco use type: Cigarette Cigarettes Per Day: 5 Years Smoked: 25 years Packs per year/per ci.00 e-Cigarette/Vaping Use: Never Used Second Hand Smoke Exposure: No service: No Current occupational status: disabled Cognitive needs: No Hearing needs: No Vision needs: Yes (glasses) Questionnaire PHQ-9 Over the last 2 weeks, how often have you been bothered by any of the following problems? 1. Little interest or pleasure in doing things: nearly every day 2. Feeling down, depressed, or hopeless: nearly every day 3. Trouble falling or staying asleep, or sleeping too much: nearly every day 4. Feeling tired or having little energy: nearly every day 5. Poor appetite or overeating: nearly every day 6. Feeling bad about yourself - or that you are a failure or have let yourself or your family down: nearly every day 7. Trouble concentrating on things, such as reading the newspaper or watching television: nearly every day 8. Moving or speaking so slowly that other people could have noticed. Or the opposite - being so fidgety or restless that you have been moving around a lot more than usual: not at all 9. Thoughts that you would be better off or of hurting yourself in some way: not at all Total score: 21 Depression Screening Interpretation: Positive Depression Screening Done: Yes 82288 - PHQ-9 Billing: Yes Source: Developed by Drs. Ambrosio Guadarrama, Silvana Howe, Дмитрий Moy and colleagues, with an educational fede from [employer]. Thrive Questionnaire Date Thrive assessed: 05/16/24 I am a: Patient What is your living situation today?: I have a steady place to live Within the past 12 months, did the food you bought not last and you didn't have the money to get more?: Never true Within the past 12 months, did you worry whether your food would run out before you got money to buy more?: Never true THRIVE Score: 0 AUDIT C Alcohol Use Questionnaire (AUDIT-C) 1. How often do you have a drink containing alcohol?: Never 2. How many drinks containing alcohol do you have on a typical day when you are drinking?: 1 or 2 3. How often do you have six or more drinks on one occasion?: Never Total Score: 0 Score Reviewed/Action Taken: Yes FRANKI-7 AMB Questionnaire FRANKI-7 Date FRANKI - 7 assessed: 05/16/24 Feeling nervous, anxious, or on edge: 3 = Nearly every day Not being able to stop or control worryin = Nearly every day Worrying too much about different things: 3 = Nearly every day Trouble relaxin = Nearly every day Being so restless that it is hard to sit still: 1 = Several days Becoming easily annoyed or irritable: 3 = Nearly every day Feeling afraid as if something awful might happen: 3 = Nearly every day Total FRANKI-7 score (0-4 normal; 5-9 mild; 10-14 moderate; 15-21 severe): 19 Source: Developed by Drs. Ambrosio Guadarrama, Silvana Howe, Дмитрий Moy and colleagues, with an educational fede from [employer]. FRANKI-7 Assessment Billing FRANKI-7 Assessment Tool: FRANKI-7 Assessment 85280 Review of Systems Const Denies chills, Denies headache(s) and Denies weight loss ENT Denies headache(s) Card Denies chest pain, Denies syncope, Denies irregular heart rhythm and Denies dyspnea Resp Denies chest congestion, Denies cough and Denies dyspnea GI Denies abdominal pain, Denies change in stool character, Denies nausea and Denies vomiting Musc Denies deformity and Denies joint swelling Neuro Denies syncope and Denies headache(s) Physical exam (Primary Care) Vital Signs: Last Vital Signs Pulse 115 H 05/16/24 11:15 BP 152/84 H 05/16/24 11:15 Pulse Ox 94 05/16/24 11:15 Oxygen Delivery Method Room Air 05/16/24 11:15 BMI result Body Mass Index 27.4 Tobacco/Smoking Status: Tobacco use Status Tobacco use date assessed 05/16/24 05/16/24 11:23 Patient Tobacco Use Status Current everyday Tobacco 05/16/24 11:23 Tobacco use type Cigarette 05/16/24 11:23 e-Cigarette/Vaping Use Never Used 05/16/24 11:23 PHQ-9: PHQ-9 Score PHQ-9: Total score 21 05/16/24 11:23 Depression Screening Interpretation: Positive Thrive Assessment: Date of Thrive Assessment Date Thrive assessed 05/16/24 05/16/24 11:23 Const General: cooperative, comfortable, no acute distress and alert Neck Neck: Yes no lymphadenopathy Thyroid: Thyroid normal Resp Effort & Inspection: normal respiratory effort Auscultation: clear to auscultation bilaterally Percussion: percussion normal Cardio Jugular venous distension: no JVD Palpation: normal PMI Rate: regular rate Rhythm: regular rhythm Heart sounds: S1 normal heart sound present and S2 normal heart sound present GI Inspection: Yes normal to inspection Palpation (GI): No hepatosplenomegaly present Skin General skin exam: no rashes or lesions noted Extrem General: Yes no clubbing, cyanosis or edema Coding Level of Care Code Est Pt Level 3 (54460) Diagnoses Foot pain M79.673 Additional Codes FRANKI-7 Assessment Billing - FRANKI-7 Assessment Tool: FRANKI-7 Assessment 02110 ([id number]) PHQ-9 - 10547 - PHQ-9 Billing: Yes ([id number]) Assessment & Plan Assessment & Plan (1) Foot pain: Code(s): M79.673 - Pain in unspecified foot Plan: xr and rx Orders: Orders XR foot LT 2V Today M79.672 - Pain in left foot Medications: New fluconazole (Diflucan) 100 mg PO DAILY 3 tabs 0RF cephalexin 250 mg PO Q6H 20 caps 0RF
[2024-05-16 11:15] VITALS: BP 152/84; PULSE 115; O2SAT 94; BMI 27.4
== END 2024-05-16 11:42 | disposition home or self-care (01) ==
LOC: HO.HMCH 11:11
PROVIDERS: PCP Internal Medicine; Visit Provider Internal Medicine
DX: M79.673 Pain in unspecified foot (principal)

== ENCOUNTER 2024-05-16 11:10 | Outpatient (REF) | payer MEDICARE, MEDICAID, SELFPAY ==
--- NOTE | ~2024-05-16 | XR_ITS ---
EXAMINATION: XR FOOT, LEFT CLINICAL INFORMATION: Foot pain COMPARISON: None available. TECHNIQUE: AP, lateral, and oblique views of the left foot. FINDINGS: Alignment is anatomic. Joint spaces are maintained. No visible acute fracture or dislocation. No erosion. Small plantar and posterior calcaneal spurring. Mild dorsal foot soft tissue swelling. No abnormal soft tissue calcification. XR/XR foot LT 2V IMPRESSION: No radiographic evidence of acute osseous abnormality. Calcaneal spurring. Electronically signed by: Manish Hi MD 05/16/2024 04:58 PM KEANU
== END 2024-05-16 11:11 | disposition home or self-care (01) ==
LOC: HO.XRAY 11:10
PROVIDERS: PCP Internal Medicine; Visit Provider Internal Medicine
DX: M79.672 Pain in left foot (principal)
CPT/HCPCS: 73620; 96127; 99212

== ENCOUNTER → 2024-07-11 13:15 | Outpatient (REF) | payer MEDICARE, MEDICAID, SELFPAY ==
--- NOTE | 2024-07-11 13:18 | CA_ITS ---
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 Normal LV ejection fraction of 65-70% with mild LVH with impaired relaxation filling pattern and elevated filling pressures 2. Mildly dilated left atrium 3. Mild aortic stenosis 4. No gross pericardial effusion Findings Left Ventricle Normal left ventricular size and systolic function. There is mildly increased left ventricular wall thickness. The visually estimated ejection fraction is between 65-70%. Spectral Doppler is indicative of an impaired relaxation filling pattern. Elevated filling pressures. E/E prime ratio is >15, consistent with elevated filling pressures. Right Ventricle Normal right ventricular cavity size and systolic function. Atria The left atrium is mildly dilated. There is no evidence of interatrial shunt. The right atrium is normal in size. Aortic Valve There is mild calcification of the aortic valve. There is mild thickening of the aortic valve. There is mild aortic valve stenosis. The mean gradient is 10 mmHg. There is no aortic valve regurgitation. Mitral Valve There is mild anterior and posterior mitral leaflet thickening. There is mild mitral annular calcification. There is trace mitral valve regurgitation. There is no mitral valve stenosis. Pulmonic Valve The pulmonic valve was not well visualized. Tricuspid Valve Likely normal tricuspid valve structure and function. Tricuspid regurgitation envelope is inadequate for calculation of right ventricular systolic pressure. Normal right atrial pressure. Great Vessels All visible segments of the aorta are normal in size. The pulmonary artery was not well visualized. There is no dilatation of the ascending aorta measuring 3.20 cm. Venous The inferior vena cava is normal in size and collapses greater than 50% with inspiration. Pericardium/Pleural There is no evidence of pericardial effusion. Prior Study Comparison Changes noted compared to prior study dated: 08/22/2022. LVH appears to be less prominent on this study Measurements 2D Linear Measurements IVSd: 1.13 0.6-0.9/0.6-1.0 cm LVIDd: 4.00 3.9-5.3/4.2-5.9 cm LVIDd Index: 2.47 2.4-3.2/2.2-3.1 cm/m2 LVIDs: 2.30 2.0-3.6 cm LVPWd: 1.08 0.7-1.1 cm LA Diam: 3.60 2.7-3.8/3.0-4.0 cm LAIDs Index: 2.22 1.5-2.3 cm/m2 LV Mass: 182.50 67-162/88-224 g LV Mass Index: 112.66 43-95/49-115 g/m2 LVOT Diam: 1.90 3.0+(-)1.3 cm 2D Systolic Function EF 4C: 71.80 >55% EF 2C: 66.70 >55% EF BiP: 68.70 >55% Mitral Valve MV Pk E: 0.69 MV PK A: 0.91 MV Decel Time: 359.00 E/A: 0.80 E'Lateral: 5.11 E'Medial: 3.81 E/E' Med: 18.20 E/E' Lat: 13.60 PHT: 105.00 MVA PHT: 2.10 Decel Flag[place]: 1.93 Aortic Valve AoV Pk Clark: 2.24 AoV Mn Clark: 1.50 AoV VTI: 0.41 AoV Pk Grad: 20.00 Aov Mn Grad: 10.00 RADHA Cont.VTI: 1.25 LVOT LVOT Pk Clark: 0.92 LVOT Mn Clark: 0.66 LVOT VTI: 0.18 LVOT Pk Grad: 3.00 LVOT Mn Grad: 2.00 LVOT Diam: 1.90 LVOT Area: 2.84 Diastolic Function MV Pk E: 0.69 MV Pk A: 0.91 E/A: 0.80 E'Medial: 3.81 E/E' Med: 18.20 E' Laterial: 5.11 E/E' Lat: 13.60 Right Ventricle TAPSE (mm): 16.10 TVS' Clark: 12.50 Tricuspid Valve RA Press: 3.00 Great Vessels Aorta Sinus of Valsalva: 3.20 2.0-3.5 cm Ao Asc: 3.20 2.1-3.4 cm Pulmonary Valve PV Pk Clark: 0.80 Peak PV Grad: 3.00 Updated in Other Vendor System with Status of Final Alexsander Edmonds MD electronically signed on 07/12/2024 3:29:14 PM with status of Final
--- OUTSIDE RECORDS SUMMARY | 2024-07-11 14:22 | XMS_ITS | Data Portability ---
Author Organization [place] - [facility], [place]- Address [address] [place] [address] Care Team Providers Care Chief Cruiser Name Role Phone Unavailable Pullman Clerk [phone] Assessment Encounter Date Assessment Date Assessment LastModified by Organization Details LastModified Time 04/07/2022 04/07/2022 A/P: 57-year-old female with low back and left lower extremity symptoms in the setting of L4-L5 spondylolisthesis and left greater than right severe foraminal stenosis. Plan: Today reviewed the patient's images with her. I talked to her about the different options that exist surgically. She would potentially be a candidate for an L4-L5 XLIF and/or TLIF to decompress the foramen and fuse that level that is with demonstrated instability and now with postsurgical changes as well. This however, would leave her with quite a bit of back soreness on top of her already chronic back pain. The goal of the surgery would be to improve the left lower extremity symptoms. Given that she has had these chronic symptoms of pain and weakness in the left lower extremity, first I would recommend pursuing an EMG of the left lower extremity to determine the degree of nerve impairment and/or if there is active denervation. Follow-up as needed should the patient want to proceed with surgery. She also has a higher risk of perioperative companies given her smoking status. She will follow-up with us as needed. [email or web address] Not available 04/07/2022 13:47:44 Plan of Treatment Reminders Order Date Submit Date Provider Last Modified By Organization Details Last Modified Time Details Appointments None record ed. Lab None record ed. Referral None record ed. Procedures None record ed. Surgeries None record ed. Imaging None record ed. Medication Orders None record ed. Patient TargetsNo targets recorded. Patient InstructionsNo instructions recorded. Reason for Referral None Reported. Medical Equipment None Reported. Allergies Allergen ID Allergen Name Allergen Category Reaction Reaction Severity Criticality Documentation Date Start Date Code Code System Note Provider Name and Address Organization Details Recorded Time Tylenol medicatio n Not available Not available Not available 04/07/2022 3 RxNorm jelena preap null, [facility] 2 12:59:16 [id number] Substance with sulfonami de structure and antibacte rial mechanism of action (substanc e) medicatio n Not available Not available Not available 04/07/2022 [id number] SNOMED jelena preap null, [facility] 2 12:59:22 [id number] clarithro mycin medicatio n Not available Not available Not available 04/07/2022 RxNorm jelena preap null, [facility] 2 12:59:38 Medications Name Sig Start Date Stop Date Status Note LastModified by Organization Details LastModified Time carisoprodol 350 mg tablet TAKE 1 TABLET BY MOUTH 3 TIMES A DAY AND EVERY NIGHT AT BEDTIME NEEDED FOR MUSCLE SPASM active Not Available Not Available No t Available fluconazole 100 mg tablet TAKE 1 TABLET BY MOUTH ONCE DAILY active Not Available Not Available No t Available metformin 500 mg tablet TAKE ONE TABLET BY MOUTH TWO TIMES A DAY active Not Available Not Available Not Available clindamycin HCl 300 mg capsule TAKE ONE CAPSULE BY MOUTH EVERY 6 HOURS active Not Available Not Available No t Available trazodone 50 mg tablet TAKE 1 TABLET BY MOUTH ONCE NIGHTLY AT BEDTIME NEEDED FOR SLEEP active Not Available Not Available No t Available tretinoin 0.025 % topical cream APPLY TO FACE AND TRUNK EVERY NIGHT AT BEDTIME active Not Available Not Available No t Available minocycline 100 mg capsule TAKE 1 CAPSULE BY MOUTH TWICE DAILY WITH FOOD AND WATER active Not Available Not Available No t Available ondansetron HCl 4 mg tablet TAKE 1 TABLET BY MOUTH ONCE DAILY NEEDED FOR NAUSEA active Not Available Not Available No t Available amoxicillin 500 mg tablet TAKE 4 TABLETS BY MOUTH ONE HOUR BEFORE SURGERY WITH A SMALL SIP OF WATER active Not Available Not Available No t Available dexamethason e 1 mg tablet TAKE ONE TABLET BY MOUTH ONCE active Not Available Not Available N ot Available diazepam 2 mg tablet TAKE 1 TABLET BY MOUTH THREE TIMES A DAY NEEDED FOR ANXIETY. active Not Available Not Available No t Available doxycycline monohydrate 100 mg capsule TAKE ONE CAPSULE BY MOUTH TWICE A DAY WITH MEALS AND A GLASS OF WATER, WEAR SUNSCREEN active Not Available Not Available No t Available montelukast 10 mg tablet TAKE 1 TABLET BY MOUTH ONCE DAILY active Not Available Not Available No t Available mupirocin 2 % topical ointment APPLY 3 TIMES DAILY TO FACE active Not Available Not Available No t Available lorazepam 1 mg tablet TAKE 1 TABLET BY MOUTH AT BEDTIME NIGHT BEFORE SURGERY. ON DAY OF SURGERY TAKE 1 TO 2 TABLETS ONE HOUR BEFORE SURGERY active Not Available Not Available No t Available albuterol sulfate HFA 90 mcg/actuatio n aerosol inhaler INHALE 2 PUFFS EVERY 4 TO 6 HOURS NEEDED FOR BRONCHOSPAS M active Not Available Not Available No t Available fluocinonide 0.05 % topical cream APPLY TO FEET TWICE DAILY, DECREASE SYMPTOMS IMPROVE active Not Available Not Available No t Available FreeStyle Lite Strips USE TO CHECK BLOOD GLUCOSE TWICE DAILY active Not Available Not Available Not Available oxycodone 20 mg tablet TAKE 1 TABLET BY MOUTH EVERY 4-6 HOURS NEEDED FOR SEVERE PAIN. MAY TAKE AN ADDITIONAL 1/2 TABLET AT BEDTIME active Not Available Not Available N ot Available ZTlido 1.8 % topical patch APPLY UP TO 3 PATCHES OVER PAINFUL AREAS. REMOVE IN 12 HOURS ( 12 HOURS ON/12 HOURS OFF ) active Not Available Not Available No t Available Vitals Date Recorded Body height Body weight Provider Name and Address Organization Details Last Updated DateTime 04/07/2022 160.02 cm 55781.01 g jelena abad [place] - [facility] 04/07/2022 12:59:06 Social History Question Answer Notes LastModified by Organizat ion Details LastModified Time Tobacco Smoking Status Current Every Day Smoker jelena ridley [place] - [facility] 04/07/2022 13:00:28 What Is Your Level Of Alcohol Consumption? None Information not available 04/07/2022 What Is Your Level Of Caffeine Consumption? None Information not available 04/07/2022 In The 14 Days Before Symptom Onset, Have You Had Close Contact With A Laboratory-confirm ed COVID-19 While That Case Was Ill? No Information n ot available 04/07/2022 In The 14 Days Before Symptom Onset, Have You Had Close Contact With A Person Who Is Under Investigation For COVID-19 While That Person Was Ill? No Information not available 04/07/2022 Have You Been To An Area Known To Be High Risk For COVID-19? No Information not available 04/07/2022 What Was The Date Of Your Most Recent Tobacco Screening? 04/07/2022 Information not available 04/07/2022 Do You Use Your Seat Belt Or Car Seat Routinely? Yes Information not available 04/07/2022 How Much Tobacco Do You Smoke? 0.5 PPD Information not available 04/07/2022 Do You Use Any Illicit Or Recreational Drugs? No Information not available 04/07/2022 Do You Or Have You Ever Used Any Other Forms Of Tobacco Or Nicotine? No Information not available 04/07/2022 Sex: Unknown Functional Status None recorded. Mental Status None recorded. Family History Nothing Reported. Medical History Condition Response Coronary Artery Disease N HIV or AIDS N Gout N Migraines N Thyroid Problems N Depression Y Blood Clots N Lung Disease N Pacemaker N Anemia Y Ulcers N Heart Attack (CT) N Anxiety Disorder Y Diabetes Y Bleeding Disorder N Seizures/Epilepsy N Arthritis Y Tuberculosis N Cancer Y Stroke N Asthma Y Leg or Foot Ulcers N Peripheral Vascular Disease N GERD/Reflux N Hepatitis N Liver Disease N Heart Disease N Rheumatoid Arthritis N Pulmonary Embolism N Hypertension N Osteoporosis N Kidney Disease N Gynecological HistoryNo gynecological history recorded. Obstetrics History GPAL:G 0 P 0 0 0 0 Past Encounters Encounter ID Performer Location Encounter Start Date Encounter Closed Date Diagnosis/Indication Diagnosis SNOMED-CT Code Diagnosis ICD10 Code [id number] AUNG KEATING MD [address] [address] 04/07/2022 12:58:00 04/07/2022 13:30:34 Degenerative lumbar spinal stenosis 224386950 M48.061 Lumbar spondylosis 58621 0009 M47.896 Lumbar radiculopathy 128 720533 M54.16 Pain in lumbar spine 267 506337 M54.50 Health Concerns Section Related Observation LastModified by Organization Detai ls LastModified Time None Recorded Concern Status LastModified by Organization Details LastModified Time None Recorded Advance Directives Directive None Recorded Payers None recorded. Notes Date Note Type Note Provider Name and Address Organization Details Recorded Time 04/07/2022 text/html HPI:57-year-old female who presents today with chronic low back pain and left lower extremity symptoms.Her pain is diffusely over her low back and left buttock area and progresses down her left posterolateral thigh and left lateral thigh and leg into her left foot.The pain is persistent all of the time. At certain times, she can have exacerbation of the symptoms down her left leg. 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 That began the symptoms of pain in her back and left leg.She subsequently underwent an L4-L5 decompression surgery/laminectomy in 2010. She feels like that surgery began a series of events that made the low back and left lower extremity pain and weakness worse.Over the past 10 years, she is actively engaged with physical therapy as well as pain management doctors. She has had many different medication regimens including her current regimen of oxycodone and muscle relaxant. She is also had multiple lumbar injections and radiofrequency ablations for both leg and back pain. These have been of variable success in the past. She currently is still having quite a bit of back soreness and left lower extremity pain. She also feels that her left leg is weaker and tends to buckle under her at times.She is currently smoking a half a pack a day.She is a prediabetic and not on medication. AUNG KEATING MD [address] [place] [address], [address], [place] - [facility] 04/07/2022 13:48:15 OBGyn Episode No OBEpisode recorded.
== END ==
LOC: HO.CARD 13:15
PROVIDERS: PCP Internal Medicine; Visit Provider Nurse Practitioner Family
DX: I35.0 Nonrheumatic aortic (valve) stenosis (principal)
CPT/HCPCS: 93306

== ENCOUNTER → 2024-07-11 13:18 | Outpatient (BNV) | payer MEDICARE, MEDICAID, SELFPAY | PROVIDERS: PCP Internal Medicine; Visit Provider Internal Medicine Cardiovascular Disease | DX: I35.0 Nonrheumatic aortic (valve) stenosis (principal); I35.8 Other nonrheumatic aortic valve disorders; I34.81 Nonrheumatic mitral (valve) annulus calcification | CPT/HCPCS: 93306 ==

== ENCOUNTER → 2024-07-19 08:22 | Outpatient (BNVA) | payer MEDICARE, MEDICAID, SELFPAY | PROVIDERS: PCP Internal Medicine; Visit Provider Nurse Practitioner Family | DX: Z01.810 Encounter for preprocedural cardiovascular examination (principal); R07.2 Precordial pain; R03.0 Elevated blood-pressure reading, without diagnosis of hypertension; E11.9 Type 2 diabetes mellitus without complications; E78.5 Hyperlipidemia, unspecified; I35.0 Nonrheumatic aortic (valve) stenosis | CPT/HCPCS: 93005; 99212 ==

== ENCOUNTER → 2024-07-19 08:22 | Outpatient (AMB) | payer MEDICARE, MEDICAID, SELFPAY ==
--- OUTSIDE RECORDS SUMMARY | 2024-07-19 08:29 | XMS_ITS | Continuity of Care Document ---
Author Organization [facility] Address [address] [place] [address]- Care Team Providers Care Sole Ruffer Name Role Phone Jerry López MD Primary Care Physician Encounter [facility] Date(s): 07/04/24 - 07/11/24 [facility] [address] [place] [place] [address] Encounter Diagnosis Gangrene of toe(Discharge Diagnosis) - 07/04/24 Attending Physician: Adam Chand MD Admitting Physician: Adam Chand MD Referring Physician: Jerry López MD Encounter Type: Office Visit Allergies, Adverse Reactions, Alerts Substance Criticality Severity Reaction Reaction Severity Status azithromycin Active sulfamethoxazole Act trina Tylenol Active Medications carisoprodol 350 mg oral tablet 1 tablet = 350 mg, By Mouth, 3 times a day, 0 Refills, Maintenance, 09/10/15 9:22:31 AM EST, Tablet Start Date: 09/10/15 Status: Ordered Repeat number: 1 Metformin = 1,000 mg, By Mouth, 0 Refills, Maintenance, 09/10/15 9:24:08 AM EST Start Date: 09/10/15 Status: Ordered Repeat number: 1 Nexium 40 mg oral enteric coated capsule 1 capsule = 40 mg, By Mouth, Daily, # 30 capsule, 0 Refills, Maintenance, 09/10/15 9:21:42 AM EST, ECCapsule Start Date: 09/10/15 Status: Ordered Quantity: 30.0 Unit: capsule Repeat number: 1 Omeprazole By Mouth, Daily, 0 Refills, Maintenance, 04/28/23 11:53:00 AM EDT, Partial fill upon patient request if the prescription is for a schedule II opioid drug. Start Date: 04/28/23 Status: Ordered Repeat number: 1 oxyCODONE 15 mg oral tablet 1 tablet = 15 mg, By Mouth, Every 6 hours, PRN for pain, 0 Refills, Maintenance, 09/10/15 9:22:54 AM EST, Tablet Start Date: 09/10/15 Status: Ordered Repeat number: 1 Singulair 10 mg oral tablet 1 tablet = 10 mg, By Mouth, Daily in PM, # 30 tablet, 0 Refills, Maintenance, 09/10/15 9:21:27 AM EST, Tablet Start Date: 09/10/15 Status: Ordered Quantity: 30.0 Unit: tablet Repeat number: 1 Valium 2 mg oral tablet 1 tablet = 2 mg, By Mouth, 2 times a day, 0 Refills, Maintenance, 09/10/15 9:23:45 AM EST, Tablet Start Date: 09/10/15 Status: Ordered Repeat number: 1 Ventolin 90 mcg Inhaler 2, puffs, Inhalation, 4 times a day, Maintenance, 09/10/15 9:23:21 AM EST Start Date: 09/10/15 Status: Ordered Repeat number: 1 Zofran ODT 4 mg oral tablet, disintegrating = 4 mg, By Mouth, 3 times a day, 0 Refills, Maintenance, 04/28/23 11:53:00 AM EDT, Partial fill upon patient request if the prescription is for a schedule II opioid drug. 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 Diagnosis Diagnosis Type Effective Dates Health Status inical Service Informant Gangrene of toe Discharge Diagnosis 07/04/24 Vital Signs Most recent to oldest [Reference Range]: 1 Height 158 cm (07/04/24 2:49 PM) Weight 62.14 kg (07/04/24 2:49 PM) Oxygen Saturation [94-100 %] 98 % (07/04/24 2:49 PM) Pulse Rate [55-90 bpm] 119 bpm *H* (07/04/24 2:49 PM) Body Mass Index [18.5-24.99 kg/m2] 24.89 kg/m2 (07/04/24 2:49 PM) Blood Pressure [90-138/55-84 mm Hg] 142/ 100mm Hg *H* (07/04/24 2:49 PM) Blood pressure sites Arm, left (07/04/24 2:49 PM) Weight Obtained Via Patient/family state d (07/04/24 2:49 PM) Social History Social History Type Response Smoking Status Current every day sm oker; Tobacco user in household: No entered on: 09/10/15 Sex Sex Representation Female (finding) Note * Cassidy Melgar: PERFORM Event Display: Patient Education/Instruction Authored Date: [id number] Ambulatory Adult Visit Summary [facility] [address] [facility] [address] [address] Name: JAGDEEP CUMMINGS : 1965?? Visit: 07/04/2024 14:33?? Ambulatory Visit Instructions ?? Your Care Team Primary Care Provider Jerry López MD? This Visit Provider Adam Chand MD Your Diagnosis Gangrene of toe Vitals Signs Pulse Rate:??119 bpm??High Height: 158 cm Systolic Blood Pressure:??142 mm Hg??High Weight: 62.14 kg Diastolic Blood Pressure:??100 mm Hg??High Body Mass Index: 24.89 kg/m2 Oxygen Saturation: 98 % Body surface area: 1.65 What to do next Future Orders CT Angio Abdomen Aorta Bilat IlioFem, Routine, Reason for Exam: Other:, IV Contrast Only, Once, *Est. 07/11/24 +/- 2 days BUN - Routine, Once, 07/04/24 15:19:00 EST, Future Order, [facility], Blood?? Creatinine - Routine, Once, 07/04/24 15:19:00 EST, Future Order, [facility], Blood?? Medications The list below reflects the information in our records and provided by you today along with any changes made during this visit. Please continue your medications until treatment is completed or stopped by your provider. If this is different from the information you have or there are other questions,please contact the prescribing provider. What How Much When Instructions Unchanged Albuterol (Ventolin 90 mcg Inhaler) 2 puff(s) Inhalation 4 times a day Unchanged Carisoprodol (carisoprodol 350 mg oral tablet) 1 tab(s) Oral 3 times a day Unchanged Diazepam (Valium 2 mg oral tablet) 1 tab(s) Oral Twice a day Unchanged Esomeprazole (Nexium 40 mg oral enteric coated capsule) 1 capsule Oral Daily Unchanged Metformin 1,000 Milligram Oral Unchanged Montelukast (Singulair 10 mg oral tablet) 1 tab(s) Oral Daily in PM Unchanged Omeprazole Oral Daily Unchanged Ondansetron (Zofran ODT 4 mg oral tablet, disintegrating) 4 Milligram Oral 3 times a day Unchanged Oxycodone (oxyCODONE 15 mg oral tablet) 1 tab(s) Oral Every 6 hours as needed for for pain Test Performed Below is a partial list of the tests performed during your Visit. You may have had other tests and procedures not included in this list. Please discuss all test results with your provider. BUN?-- Results Pending -- Creatinine?-- Results Pending -- Medications and Immunizations Administered Medications Given During Visit No medications given during this visit.?? Allergies (NKA means No Known Allergies) Tylenol azithromycin sulfamethoxazole Common Emergency Awareness Tips IS IT A STROKE? Act FAST and Check for these signs: FACE Does the face look uneven? ARM Does one arm drift down? SPEECH Does their speech sound strange? TIME Call at any sign of stroke ?? Heart Attack Signs Chest discomfort: Most heart attacks involve discomfort in the center of the chest and lasts more than a few minutes, or goes away and comes back. It can feel like uncomfortable pressure, squeezing, fullness or pain. Discomfort in upper body: Symptoms can include pain or discomfort in one or both arms, back, neck, jaw or stomach. Shortness of breath: With or without discomfort. Other signs: Breaking out in a cold sweat, nausea, or lightheaded. Remember, MINUTES DO MATTER. If you experience any of these heart attack warning signs, call to get immediate medical attention! ?? Smoking can increase your chances of developing chronic health problems and can cause harmful effects to other family members in your house. If you smoke, you are strongly encouraged to quit. Please call [employer] at [phone] or 0-506-498AllDigital ([phone]) or log in to [email or web address] for referrals to smoking cessation programs. ?? The National Suicide Prevention Hotline is available 30/01 if you or someone you know needs to find a reason to keep living. By calling 5-293-923-hurw (0970) you'll be connected to a skilled, trained counselor at a crisis center in your area. [facility] You can view and manage your care through the patient portal or by using a health care daphne of your choosing. [employer] is a website that allows you to securely view your medical information including your hospital discharge summary, office visit summaries, medications and follow-up visits. You can also request appointments, renew medications, and request access to your medical information using a health care daphne of your choosing, or just ask a question. You can enroll at [email or web address] or register during your next office visit. [facility], in keeping with [facility] guidance, no longer requires face masks for staff, patientsor visitors in most situations. Similiar to time spent indoors at other locations, there is the chance that you were exposed to repiratory viruses during your time with us (such as flu or COVID-19). If you develop symptoms concerning for a viral respiratory infection, please seek testing (and treatment if indicated) from your medical provider or home test kit. ?? Disclaimer: The information provided is of a general nature and is intended to be used in conjunction with the recommendations and advice of your health care practitioner. Every effort has been made to ensure that the information provided is accurate and complete at the time it is provided to you however, as your needs change, or, as new information becomes available, different or additional instructions may be required. ?? If you have questions, please consult with your primary care provider or pharmacist, as appropriate. This information is not intended to serve as substitution for assessment and evaluation by a qualified health care provider. If you do not have a primary care provider, you may find a [facility] provider by calling [facility] at [phone]. Patient Care team information Care Team Personnel Name: Jerry López MD Position: Reference Physician Member Role: PCP Address: [address] [place] [id number] Tele[employer]: Name: Neil Ortiz RN Position: S RN Member Role: Primary Care Nurse Care Team Related Persons Name: POOL CUMMINGS Name: HAMILTON CUMMINGS Insurance Providers Guarantor name: JAGDEEP CUMMINGS Health Plan Information #: 2 Payer: [facility] Member Number: [id number] Policy Number: NA Group Number: NA Health Plan Information #: 1 Payer: MEDICARE PART B OUTPT Member Number: [id number] Policy Number: NA Group Number: NA
--- OUTSIDE RECORDS SUMMARY | 2024-07-19 08:29 | XMS_ITS | Data Portability ---
Author Organization [place] - [facility], [place]- Address [address] [place] [address] Care Team Providers Care Driver Education Road Instructor Name Role Phone Unavailable Architecture Technician [phone] Assessment Encounter Date Assessment Date Assessment LastModified [...] available 04/07/2022 3 RxNorm jelena preap null, [facility] 2 12:59:16 [id number] Substance with sulfonami de structure and antibacte rial mechanism of action (substanc e) medicatio n Not available Not available Not available 04/07/2022 60930 8003 SNOMED jelena preap null, [facility] 2 12:59:22 [id number] clarithro mycin medicatio n Not available Not available Not available 04/07/2022 RxNorm jelena preap null, [facility] 2 12:59:38 Medications Name Sig [...] Details Last Updated DateTime 04/07/2022 160.02 cm 37285.01 g jelena abad [place] - [facility] [...] History Nothing Reported. Medical History Condition Response HIV or AIDS N Coronary Artery Disease N Gout N Migraines N Thyroid Problems N Lung Disease N Depression Y Blood Clots N Pacemaker N Anemia Y Ulcers N Heart Attack (CT) N Anxiety Disorder Y Diabetes Y Bleeding Disorder N Arthritis Y Seizures/Epilepsy N Tuberculosis N Cancer Y Stroke N Asthma [...] Diagnosis/Indication Diagnosis SNOMED-CT Code Diagnosis ICD10 Code Diagnosis Note [id number] UANG KEATING MD [address] [address] 04/07/2022 12:58:00 04/07/2022 13:30:34 Degenerative lumbar spinal stenosis [id number] M48.061 Lumbar spondylosis 07612 0009 M47.896 Lumbar radiculopathy 128 744527 M54.16 Pain in lumbar spine 267 162195 M54.50 Health Concerns Section Related Observation LastModified [...] and not on medication. AUNG KEATING MD [address] [place] [address], [id number], [facility] - [facility] 04/07/2022 13:48:15 OBGyn Episode No OBEpisode recorded.
[2024-07-19 08:32] VITALS: BP 154/90; PULSE 96; BMI 24.6
--- NOTE | 2024-07-19 08:32 | MHC.OFFVIS ---
Vital Signs 07/19/24 08:32 Height 5 ft 2 in Weight 134 lb 7.712 oz BMI 24.6 BP 154/90 H Blood Pressure Location Lt brachial Position Sitting Pulse 96 Pulse Source Monitor Intake Visit Reasons: LT leg Bypass/[employer] Network And Threat Support Specialist Required: No Allergies acetaminophen [From TYLENOL] Allergy (Unknown, Verified 07/19/24 08:35) RASH azithromycin [Zithromax Z-Dinesh] Allergy (Unknown, Verified 07/19/24 08:35) GI upset Sulfa (Sulfonamide Antibiotics) [SULFA (SULFONAMIDE ANTIBIOTICS)] Allergy (Unknown, Verified 07/19/24 08:35) ANAPHALACTIC zolpidem Adverse Reaction (Mild, Verified 07/19/24 08:35) Hallucinations Medication List - Last Reconciled 07/19/24 by ELOINA Mistry albuterol sulfate 90 mcg/actuation 2 puffs inhalation Q4-6H PRN ammonium lactate 12% 1 appl topical BID blood sugar diagnostic (FreeStyle Lite Strips) check blood sugars twice a day blood-glucose meter (FreeStyle Lite Meter kit) to check blood sugars once a days carisoprodol (Soma) 350 mg PO QID diazepam (Valium) 2 mg PO TID PRN diosmin complex no.1 (Vasculera) 1 tab PO DAILY fluconazole 200 mg PO DAILY fluocinonide 0.05% appl topical BID lancets (FreeStyle Lancets) to check blood sugars twice a day lidocaine 1.8% (ZTlido) 0 patches topical metformin 500 mg PO BID montelukast (Singulair) 10 mg PO DAILY 90 days mupirocin 2% 1 appl topical TID omeprazole 40 mg PO BID ondansetron HCl 4 mg PO Q8H oxycodone 20 mg PO DAILY HPI HPI LT leg Bypass/[facility]/Clearance: Details: Arabella is a 59-year-old female past medical history diabetes, hyperlipidemia, smoking, coronary calcifications on CT scan, nonobstructive CAD who presents for follow-up for preop clearance for vascular surgery left leg due to gangrene toes. Today she reports that she is wanting to undergo any surgery. She tells me she has been on an antifungal medication and that she believes her toes are improving. She has a dressing over them today and did not want to remove it. She ambulates with a limp. She is hoping to just give the antibiotics more time and wants to save her toes. She has not been getting any chest pains at rest or with activity. She has no concerning shortness of breath, palpitations, presyncope, syncope, PND, orthopnea or edema. She stopped taking aspirin for no clear reason. She also stop metoprolol as she thought it might be giving her leg cramps. She continues to smoke a few cigarettes per day and uses it as stress reduction. [facility] Medical History Back pain Diabetes mellitus History of cervical cancer Obesity (BMI 30-39.9) Anxiety Asthma Adenoma of left adrenal gland Surgical History History of lumbar laminectomy Hx of knee surgery Hx of shoulder surgery History of back surgery Hx of hysterectomy Family History Father Heart disease Hypertension Diabetes Mother No problems noted. Brother No problems noted. Brother No problems noted. Brother No problems noted. Son No problems noted. Social History Housing: Apartment Alcohol intake: never Patient Tobacco Use Status: Current everyday Tobacco user Tobacco use type: Cigarette Cigarettes Per Day: 5 Years Smoked: 25 years e-Cigarette/Vaping Use: Never Used Second Hand Smoke Exposure: No service: No Current occupational status: disabled Cognitive needs: No Hearing needs: No Vision needs: Yes (glasses) Review of Systems Const All systems reviewed & are unremarkable except as noted in HPI and below ENT Denies dizziness Card Denies chest pain, Denies chest pain at rest, Denies chest pain with activity, Denies rapid heart rate, Denies pedal edema, Denies edema, Denies leg edema, Denies lightheadedness, Denies palpitations, Denies dyspnea, Denies dyspnea on exertion and Denies orthopnea Resp Denies cough, Denies dyspnea and Denies dyspnea on exertion GI Denies hematochezia and Denies change in stool character Musc Reports abnormal gait (wounds on left toes), Denies limited range of motion, Denies muscle cramps, Denies muscle weakness, Denies numbness, Denies radiating pain into limb, Denies stiffness and Denies tingling Neuro Reports abnormal gait (wounds on left toes), Denies dizziness, Denies numbness and Denies tingling Endo Denies palpitations Physical Exam Vital Signs: Last Vital Signs Pulse 96 07/19/24 08:32 BP 154/90 H 07/19/24 08:32 BMI result Body Mass Index 24.6 Const General: cooperative, healthy appearing, comfortable and no acute distress Orientation/consciousness: patient oriented x3 Neck Neck: Yes normal visual inspection Resp Effort & Inspection: normal respiratory effort Auscultation: clear to auscultation bilaterally, no crackles, no rales, no rhonchi and no wheezes Cardio Jugular venous distension: no JVD Rate: regular rate Rhythm: regular rhythm Heart sounds: S1 normal heart sound present, S2 normal heart sound present, no gallops, no murmurs and no rubs Neuro General: patient oriented x3 Extrem Other: dressing on wounds left toes Psych Appearance: grossly normal Mental Status: mental status grossly normal Speech and movement: Normal speech and movement present Office Procedures EKG Details: Today, read by me SR, no acute ST or T wave abnormalities, rate 96, Qtc 434ms [id number], Complete Assessment & Plan Assessment & Plan (1) Precordial chest pain: Code(s): R07.2 - Precordial pain Category: Medical Plan: Prior reports of Reports of mid chest discomfort under situations of high stress. She denies any exertional chest discomfort. She does have cardiac risk factors of diabetes, hyperlipidemia, smoking. Recent CT scan of the chest is showing significant coronary calcifications. She underwent a echocardiogram on 08/22/2022 showing EF 68%, moderate increase in the LV wall thickness, mild aortic stenosis, mild mitral annular calcification. Exercise stress test done on 08/22/2022 with exercise 2 minutes and 50 seconds with need to stop due to back pain and sciatica discomfort, achieving 83% of MPHR, no EKG changes noted however blood pressure 228/88. Overall test suboptimal. She refused to undergo a nuclear stress test. A CTA of the coronary arteries was done on 04/28/2023 showing no evidence of hemodynamically significant coronary artery disease, small plaque in the distal left main extending into the proximal LAD with mild stenosis of approximately 35% in the proximal LAD and less than 25% in the left main, scattered minimal stenosis in the remaining LAD and RCA. EKG done today showing sinus rhythm, no acute ST or T-wave abnormalities, rate 96, QTC 434 milliseconds. At this time she reports no anginal sounding symptoms. The need for ongoing risk factor modification reviewed with her. She needs good cholesterol, blood pressure and blood sugar control. Had been on aspirin and stopped. The importance of aspirin use was reviewed with her. Will restart on enteric-coated aspirin 81 mg daily. She had been on metoprolol but thought it may be giving her leg cramps. Informed her that is unlikely. Her heart rate and blood pressure are elevated today. Will have her restart on metoprolol XL 25 mg daily. Labs done 06/27/2022 showed LDL 199. Again Discussed statin use and she declines. Signs and symptoms of angina reviewed with her. Emergency care if ever needed for symptoms. Cardiology follow-up in 6 months, sooner if needed. (2) Elevated blood-pressure reading without diagnosis of hypertension: Code(s): R03.0 - Elevated blood-pressure reading, without diagnosis of hypertension Category: Medical Plan: Blood pressure is elevated today. Will be restarting metoprolol. (3) Diabetes mellitus: Code(s): E11.9 - Type 2 diabetes mellitus without complications Category: Medical Plan: Hemoglobin A1c goal less than 7. She should be on statin therapy but declines. Followed by PCP (4) Hyperlipidemia: Code(s): E78.5 - Hyperlipidemia, unspecified Category: Medical Plan: [place] LDL goal less than 70 and patient with diabetes and coronary calcifications. Labs done on 06/27/2022 shows LDL 199. Declines statin and PCSK9 inhibitor. (5) Aortic stenosis: Code(s): I35.0 - Nonrheumatic aortic (valve) stenosis Category: Medical Plan: Mild aortic stenosis noted on echocardiogram. Will need to be followed periodically with echocardiogram. (6) Preop cardiovascular exam: Code(s): Z01.810 - Encounter for preprocedural cardiovascular examination Category: Medical Plan: Preop for vascular surgery, possible amputation of toes on left foot. Known history of nonobstructive coronary artery disease. No anginal sounding symptoms. Blood pressure elevated today. Restarting her on metoprolol well as aspirin. Aspirin can be held if needed for the surgery and restarted as soon as cleared by surgeon to do so. Call/consult Cardiology if needed. - note: Patient tells me she is not interested in having surgery at this time. She wants to give it a few months to see if the antibiotic works. - she may not understand the gravity of the situation. Plan Time spent on chart review, documentation, interview and assessment Medications: New metoprolol succinate ER 25 mg PO DAILY 90 tabs 3RF aspirin (Enteric Coated Aspirin) 81 mg PO DAILY 90 tabs 3RF Coding Level of Care Code Est Pt Level 4 (01729) Complex EM visit Add On G2211 Diagnoses Precordial chest pain R07.2 Elevated blood-pressure reading without diagnosis of hypertension R03.0 Diabetes mellitus E11.9 Hyperlipidemia E78.5 Aortic stenosis I35.0 Preop cardiovascular exam Z01.810 CPT Codes EKG - CPT: [id number], Complete ([id number]) Time Spent (min) 30
== END ==
PROVIDERS: PCP Internal Medicine; Visit Provider Nurse Practitioner Family
DX: R07.2 Precordial pain (principal); R03.0 Elevated blood-pressure reading, without diagnosis of hypertension; E11.9 Type 2 diabetes mellitus without complications; E78.5 Hyperlipidemia, unspecified; I35.0 Nonrheumatic aortic (valve) stenosis; Z01.810 Encounter for preprocedural cardiovascular examination
CPT/HCPCS: 93010; 99214; G2211

== ENCOUNTER 2024-11-12 13:27 | Outpatient (AMB) | payer MEDICARE, MEDICAID, SELFPAY ==
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
[2024-11-12 13:43] VITALS: BP 162/90; BMI 22.1
--- OUTSIDE RECORDS SUMMARY | 2024-11-12 14:42 | XMS_ITS | Data Portability ---
Author Organization [place] - [facility], [place]- Address [address] [place] [address] Care Team Providers Care Test Lead Name Role Phone Unavailable Shoe Stock Associate [phone] Assessment Encounter Date Assessment Date Assessment LastModified [...] 3 RxNorm jelena preap null, [facility] 2 12:59:16 [id number] Substance with sulfonami de structure and antibacte rial mechanism of action (substanc e) medicatio n Not available Not available Not available 04/07/2022 [id number] SNOMED jelena preap null, [facility] 2 12:59:22 [id number] clarithro mycin medicatio n Not available Not available Not available 04/07/2022 RxNorm jelena preap null, [facility] 2 12:59:38 Medications Name [...] Details Last Updated DateTime 04/07/2022 160.02 cm 28797.01 g jelena abad [place] - Orthopaed ic [...] N Anemia Y Ulcers N Heart Attack (ID) N Diabetes Y Anxiety Disorder Y Bleeding Disorder N Seizures/Epilepsy N Arthritis [...] SNOMED-CT Code Diagnosis ICD10 Code Diagnosis Note [id number] AUNG KEATING MD [address] [address] 04/07/2022 12:58:00 04/07/2022 13:30:34 Degenerative lumbar spinal stenosis [id number] M48.061 Lumbar spondylosis 86328 0009 M47.896 Lumbar radiculopathy 128 289665 M54.16 Pain in lumbar spine 267 376168 M54.50 Health Concerns Section Related Observation LastModified [...] and not on medication. AUNG KEATING MD [address] [place] [address], [id number], [facility] 04/07/2022 13:48:15 OBGyn Episode No OBEpisode recorded.
--- OUTSIDE RECORDS SUMMARY | 2024-11-12 14:42 | XMS_ITS | Referral Summary ---
Author Organization [facility] Address [address] [place] [address] Care Team Providers Care Horticulture/Floriculture Teacher Name Role Phone Unavailable Primary Care Provider Unavailabl e Allergies Active Allergy Reactions Criticality Noted Date Comments Acetaminophen Other (see comments),Rash High 012 Azithromycin Nausea 07/13/2021 Other Anaphylaxis High 11/17/2011 Sulfur. Sulfa (Sulfonamide Antibiotics) Anaphylaxis High 08/13/2015 Medications albuterol (PROAIR HFA,VENTOLIN HFA) 90 mcg inhaler INHALE 2 PUFFS EVERY 4-6 HOURS NEEDED FOR BRONCHOSPASM 1 Active Freestyle Lite test strips USE TO CHECK BLOOD SUGARS ONCE A DAY 1 Active FreeStyle Lite Meter meter USE TO CHECK BLOOD SUGARS ONCE A DAY 1 Active carisoprodoL (SOMA) 350 mg tablet Take 350 mg by mouth 4 times a day as needed. 1 Active clindamycin (CLEOCIN) 300 mg capsule Take 300 mg by mouth every 6 hours. 1 Active diazePAM (VALIUM) 2 mg tablet Take 2 mg by mouth 3 times a day as needed. 1 Active fluconazole (DIFLUCAN) 100 mg tablet Take 100 mg by mouth once a day. 1 Active lamoTRIgine (LaMICtal) 100 mg tablet Take 100 mg by mouth. 1 Active lamoTRIgine (LaMICtal) 100 mg tablet Take 100 mg by mouth once a day. 1 Active ZTlido 1.8 % adhesive patch,medicated APPLY UP TO 3 PATCHES OVER PAINFUL AREAS. REMOVE IN 12 HOURS (12 HOURSO N, 12 HOURS OFF) 1 Active LORazepam (ATIVAN) 1 mg tablet TAKE 1 TABLET BY MOUTH AT BEDTIME NIGHT BEFORE SURGERY. ON DAY OF SURGERY TAKE 1 TO 2 TABLETS ONE HOUR BEFORE SURGERY 1 Active metFORMIN (GLUCOPHAGE) 500 mg tablet Take 500 mg by mouth 2 times a day. 1 Active Savella 100 mg tablet Take 1 tablet by mouth 2 times a day. 1 Active montelukast (SINGULAIR) 10 mg tablet Take 10 mg by mouth once a day. 1 Active omeprazole (PriLOSEC) 40 mg capsule Take 40 mg by mouth 2 times a day. 1 Active oxyCODONE (ROXICODONE) 20 mg tablet TAKE 1 TABLET BY MOUTH EVERY 4-6 HOURS NEEDED FOR SEVERE PAIN MAY TAKE AN ADDITIONAL ONE-HALF TABLET AT BEDTIME 1 Active Motegrity 2 mg tablet Take 2 mg by mouth once a day. 1 Active sucralfate (CARAFATE) 1 gram tablet Take 1 g by mouth 3 times a day. 1 Active traZODone (DESYREL) 50 mg tablet TAKE ONE TABLET BY MOUTH AT BEDTIME NEEDED FOR SLEEP 1 Active zolpidem (AMBIEN) 5 mg tablet Take 5 mg by mouth nightly as needed. 1 Active Social History Tobacco Use Types Packs/Day Years Used Date Smoking Tobacco: Former Smokeless Tobacco: Never Comments Unknown Sex and Gender Information Value Date Recorded Sex Assigned at Female 07/12/2021 3:51 PM EST Legal Sex Female 3:14 PM EDT Gender Identity Female 07/12/2021 3:51 PM EST Sexual Orientation Choose not to disclose 2021 3:51 PM EST Last Filed Vital Signs Vital Sign Reading Time Taken Comments Blood Pressure 129/70 07/13/2021 1:37 PM EST Pulse 105 07/13/2021 1:37 PM EST Temperature - - Respiratory Rate - - Oxygen Saturation - - Inhaled Oxygen Concentration - - Weight 55.6 kg (122 lb 9.6 oz) 07/13/2021 1:37 P M EST Height 157.7 cm (5' 2.1 ) 07/13/2021 1:37 PM EST Body Mass Index 22.35 07/13/2021 1:37 PM EST Plan of Treatment [place] [address] [place] [address]
--- OUTSIDE RECORDS SUMMARY | 2024-11-12 14:42 | XMS_ITS | Clinical Summary ---
Author Organization [facility] Address [address] [place] [address] Care Team Providers Care Fisher Scallop Name Role Phone Unavailable Primary Care Provider [...] 07/13/2021 1:37 PM EST Plan of Treatment Health Maintenance Due Date Last Done Comments Cervical Cancer Screening 1965 Cologuard 1966 Colon Cancer Screening 1965 Colonoscopy 1966 FOBT / Fit Test 1966 HIV Screening 1966 HPV and Pap Smear 1966 Pap Smear 1966 Sigmoidoscopy 1966 Hepatitis B Vaccines (1 of 3 - 19+ 3-dose series) 1985 DTaP,Tdap,and Td Vaccines (1 - Tdap) 01/08/1988 Pneumococcal Vaccine: 50+ Ye ars (1 of 1 - PCV) 01/08/2016 Zoster Vaccines (1 of 2) 01/08/2016 Alcohol/Substance Use Screening 07/10/2024 Depression Screening and Follow-Up 07/10/2024 Social Drivers of Health Annual Screening 07/10/2024 Influenza Vaccine (Season Ended) 2025 04/11/20 16, 03/15/2016 RSV Vaccine (60+ years old a nd patients) (1 - 1-dose 75+ series) 2041 [place] [address] [facility] [place] [address]
--- OUTSIDE RECORDS SUMMARY | 2024-11-12 14:42 | XMS_ITS | Clinical Summary ---
Author Organization [facility] Address [address] [place] [address] Care Team Providers Care Clinical Assoc Name Role Phone Jerry López MD Primary Care Provider [phone] Allergies Active Allergy Reactions Criticality Noted Date Comments Acetaminophen Rash High 08/13/2015 Sulfa Antibiotics Anaphylaxis High 02/05/2021 Medications Medication Sig Dispensed Refills Start Date End Date Status carisoprodol (SOMA) 350 MG tablet TAKE ONE TABLET BY MOUTH THREE TIMES A DAY AND EVERY NIGHT AT BEDTIME NEEDED FOR MUSCLE SPASM 0 02/02/2021 Active diazePAM (VALIUM) 2 MG tablet TAKE ONE TABLET BY MOUTH THREE TIMES A DAY NEEDED FOR ANXIETY 0 02/01/2021 Active lamoTRIgine (LaMICtal) 100 MG tablet Take 100 mg by mouth daily. 0 12/03/2020 Active ZTlido 1.8 % PTCH APPLY UP TO 3 PATCHES OVER PAINFUL AREAS, REMOVE IN 12 HOURS (12 HOURS ON, 12 HOURS OFF) 0 02/02/2021 Active metFORMIN (GLUCOPHAGE) tablet 500 mg Take 500 mg by mouth 2 (two) times a day. 0 01/21/2021 Active montelukast (SINGULAIR) 10 MG tablet Take 10 mg by mouth daily. 0 01/21/2021 Active oxyCODONE HCl 20 MG TABS TAKE ONE TABLET BY MOUTH EVERY 4 TO 6 HOURS NEEDED FOR SEVERE PAIN 0 01/27/2021 Active traZODone (DESYREL) 50 MG tablet Take 50 mg by mouth every night at bedtime as needed. for sleep 0 12/25/2020 Active omeprazole (PriLOSEC) 40 MG capsule Take 40 mg by mouth 2 (two) times a day. 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C (99.6 ??F) 02/05/2021 10:17 AM E DT Respiratory Rate - - Oxygen Saturation 100% 02/05/2021 10:17 AM EDT Inhaled Oxygen Concentration - - Weight 61.2 kg (135 lb) 02/05/2021 10:17 AM EDT Height 158.8 cm (5' 2.5 ) 02/05/2021 10:17 AM ED T Body Mass Index 24.3 02/05/2021 10:17 AM EDT Plan of Treatment Health Maintenance Due Date Last Done Comments Hepatitis B Vaccines (1 of 3 - 3-dose series) 1966 Hepatitis C Screening 1966 COVID-19 Vaccine (#1) 1966 Pneumococcal Vaccine (1 of 2 - PCV) 01/08/1972 Depression Screening 1978 Preventative Health Evaluation 01/08/1984 DTap / Tdap / Td (1 - Tdap) 1985 Cervical Cancer Screening (P ap Smear) 1987 Colon Cancer Screening (Colonoscopy) 2011 Breast Cancer Screening (Mammogram) 01/08/2016 Shingrix-Zoster Vaccine (1 of 2) 01/08/2016 Influenza Vaccine (#1) 2024 RSV Ped < 20 months Aged Out No longe r eligible based on patient's age to complete this topic Care Teams Clinical Assoc Relationship Specialty Start Date End Date Jerry López MD [address] [place] [address] [place] [address] PCP - General Internal Medicine 02/05/21
--- OUTSIDE RECORDS SUMMARY | 2024-11-12 14:42 | XMS_ITS | Clinical Summary ---
Author Organization [facility] [address] [facility] Address [address] [place] [address] Phone Care Team Providers Care Heating Technician Name Role Phone Jerry López MD Primary Care Provider [phone] Allergies Active Allergy Reactions Criticality Noted Date Comments Azithromycin 07/15/2024 Sulfa (Sulfonamide Antibiotics) 12/2024 Medications oxyCODONE (ROXICODONE) 20 mg immediate release tablet TAKE ONE TABLET BY MOUTH EVERY 4 TO 6 HOURS NEEDED FOR SEVERE PAIN. MAY TAKE ADDITIONAL ONE-HALF TABLET AT BEDTIME Active metFORMIN (GLUCOPHAGE) 500 mg tablet Take 1 tablet (500 mg total) by mouth 2 (two) times a day. Active fluconazole (DIFLUCAN) 200 mg tablet Take 1 tablet (200 mg total) by mouth 1 (one) time each day. 4 Active diazePAM (VALIUM) 2 mg tablet Take 1 tablet (2 mg total) by mouth 3 (three) times a day if needed for anxiety. 4 Active carisoprodoL (SOMA) 350 mg tablet 06-08-24 TAKE ONE TABLET BY MOUTH THREE TIMES A DAY AND EVERY NIGHT AT BEDTIME NEEDED FOR MUSCLE SPASM Active diazePAM (VALIUM) 2 mg tablet Take 1 tablet (2 mg total) by mouth 3 (three) times a day if needed. 1 Active ZTlido 1.8 % adhesive patch,medicated APPLY UP TO 3 PATCHES OVER PAINFUL AREAS. REMOVE IN 12 HOURS Active omeprazole (PriLOSEC) [address] Ornelas ons:Gastroesoph ageal reflux disease without esophagitis,Eso phageal dysphagia,Fatty liver,Pancreati c cyst,History of colonic polyps Take 1 capsule (40 mg total) by mouth 2 (two) times a day. 180 each 3 5 10/01/19 26 Active Active Problems Problem Noted Date Diagnosed Date Gastroesophageal reflux disease without esophagi tis 07/15/2024 Esophageal dysphagia 07/15/2024 History of colonic polyps 07/15/2024 Fatty liver 07/15/2024 Pancreatic cyst 07/15/2024 Social History Tobacco Use Types Packs/Day Years Used Date Smoking Tobacco: Some Days Smokeless Tobacco: Never Alcohol Use Standard Drinks/Week Comments Never 0 (1 standard drink = 0.6 oz pur e alcohol) Comments Unknown Sex and Gender Information Value Date Recorded Sex Assigned at Not on file Legal Sex Female 2:10 AM EST Gender Identity Not on file Sexual Orientation Not on file Obstetrics History Last Filed Vital Signs Vital Sign Reading Time Taken Comments Blood Pressure - - Pulse - - Temperature - - Respiratory Rate - - Oxygen Saturation - - Inhaled Oxygen Concentration - - Weight 60.8 kg (134 lb) 07/15/2024 12:45 PM EST Height 157.5 cm (5' 2 ) 07/15/2024 12:45 PM EST Body Mass Index 24.51 07/15/2024 12:45 PM EST Plan of Treatment Upcoming Encounters Date Type Department Care Team (Late st Contact Info) Description 11/22/2024 3:00 PM EDT Office Visit Gastroenterology - [address] [address] Clifton Hines MD [address] [address] Health Maintenance Due Date Last Done Comments Diabetes: Annual GFR (Glomerular Filtration Rate) 1966 COVID-19 Vaccine (#1) 1971 Diabetes: Annual Foot Exam 01/08/1976 Diabetes: Annual Retina Eye Exam 01/08/1976 DTaP,Tdap,and Td Vaccines (1 - Tdap) 1985 Hepatitis B Vaccines (1 of 3 - 19+ 3-dose series) 1985 Pneumococcal Vaccine: 50+ Years (1 of 2 - PCV) 1985 Pneumococcal Vaccine: Pediatrics (0 to 5 Years) and At-Risk Patients (6 to 64 Years) (1 of 2 - PCV) 1985 Zoster Vaccines (1 of 2) 1985 Cervical Cancer Screening: P ap Smear 1987 Cholesterol Screening (Lipid Panel) 06/12/2022 Colorectal Cancer Screening: Colonoscopy 06/12/2022 Depression Screening 06/12/2022 HIV Screening 06/12/2022 Medicare Annual Wellness Visit 06/12/2022 Social Influencers of Health Screening 06/12/2022 Diabetes: Annual Urine Albumin-Creatinine Ratio (uACR) 07/08/2022 Diabetes: Blood Sugar Contro l Test (HGBA1C) 07/08/2022 Breast Cancer Screening 03/01/2025 03/01/20, 10/15/2021 Influenza Vaccine (Season Ended) 2025 04/11/2016, 03/15/2016 Hepatitis C Screening Completed 08/05/2016 HIB Vaccines Aged Out No longer eligi ble based on patient's age to complete this topic HPV Vaccines Aged Out No longer eligi ble based on patient's age to complete this topic Hepatitis A Vaccines Aged Out No long er eligible based on patient's age to complete this topic IPV Vaccines Aged Out No longer eligi ble based on patient's age to complete this topic MMR Vaccines Aged Out No longer eligi ble based on patient's age to complete this topic Meningococcal ACWY Vaccine Aged Out N o longer eligible based on patient's age to complete this topic Meningococcal B Vaccine Aged Out No l onger eligible based on patient's age to complete this topic RSV Immunization Patients Under 20 months Aged Out No longer eligible b ased on patient's age to complete this topic Varicella Vaccines Aged Out No longer eligible based on patient's age to complete this topic Procedures Procedure Name Priority Date/Time Associated Diagnosis Comments NABOR SCREENING DIGITAL Routine 03/01/2023 3:00 PM EDT Encounter for screening mammogram for malignant neoplasm of breast from Last 3 Months or Most Recently Relevant to Health Maintenance Results * NABOR SCREENING DIGITAL (03/01/2023 3:00 PM EDT) Anatomical Region Laterality Modality Mammography 03/01/2023 12:3 7 PM EDT Narrative 03/01/2023 3:00 PM EDT [facility] Diagnostic Imaging Department [address] [place] [id number] Patient: ??ARABELLA ESTRADA ?/Age/Sex: 1965 - 58 - F Unit#: ??[id number] ? Location/Status: ??SPDIMAM/REG CLI ? Mnemonic/Ordering Site: ??DIGSC/SPMAM Ordering Physician: ??JERRY LÓPEZ MD [facility] Screening Digital - 03/01/23 - 1303 Report Status:Signed EXAM: [facility] Screening Digital EXAM DATE AND TIME: 03/01/2023 1:04 PM HISTORY: ??Annual screening COMPARISON: ??10/15/2021, 02/08/2019, 06/02/2017 TECHNIQUE: Bilateral digital breast tomosynthesis was performed in the CC and MLO projections. Computer aided detection with Power OLEDs 3D 3.1 was employed. TISSUE DENSITY: b. There are scattered areas of fibroglandular density. FINDINGS: No suspicious masses, grouped microcalcifications, or areas of architectural distortion are seen. The skin and vascularity are unremarkable. IMPRESSION: Stable mammographic appearance of the breasts. ??No evidence of malignancy is seen. A negative mammogram in the presence of a clinically suspicious palpable abnormality does not preclude the possibility of malignancy or alter the indications for biopsy. BI-RADS: ??Category 1: Negative RECOMMENDATION(S): 1: Routine screening mammogram BILATERAL in 1 year. 3341F, 7007F Dictating Physician: ??ARDEN MONTIEL MD Electronically Signed by: ??ARDEN MONTIEL MD Dic Date/Time: ??03/01/23 1458 Sign date/Time: ??03/01/23 1500 Procedure Note Arden Montiel MD - 08/15/2023 [facility] Diagnostic Imaging Department [address] [place] [id number] Patient: ARABELLA ESTRADA [place]/Age/Sex: 1965 - 58 - F Unit#: [id number] Location/Status: [facility] CLI Mnemonic/Ordering Site: [facility] Ordering Physician: JERRY LÓPEZ MD [facility] Screening Digital - 03/01/23 - 1303 Report Status:Signed EXAM: [facility] Screening Digital EXAM DATE AND TIME: 03/01/2023 1:04 PM HISTORY: Annual screening COMPARISON: 10/15/2021, 02/08/2019, 06/02/2017 TECHNIQUE: Bilateral digital breast tomosynthesis was performed in the CCand MLO projections. Computer aided detection with Power OLEDs 3D 3.1was employed. TISSUE DENSITY: b. There are scattered areas of fibroglandular density. FINDINGS: No suspicious masses, grouped microcalcifications, or areas ofarchitectural distortion are seen. The skin and vascularity are unremarkable. IMPRESSION: Stable mammographic appearance of the breasts. No evidence of malignancyis seen. A negative mammogram in the presence of a clinically suspicious palpable abnormality does not preclude the possibility of malignancy or alter the indications for biopsy. BI-RADS: Category 1: Negative RECOMMENDATION(S): 1: Routine screening mammogram BILATERAL in 1 year. 9701F, 7092F Dictating Physician: ARDEN MONTIEL MD Electronically Signed by: ARDEN MONTIEL MD Dic Date/Time: 03/01/23 1458 Sign date/Time: 03/01/23 1500 Jerry López MD IMG BI PROCEDURES Final Result from Last 3 Months or Most Recently Relevant to Health Maintenance Insurance MEDICARE MEDICAID - [place] Care Teams Heating Technician Relationship Specialty Start Date End Date Jerry López MD [address] [place] [address] PCP - General Internal Medicine 02/05/21
== END 2024-11-12 14:25 | disposition home or self-care (01) ==
LOC: HO.HMCH 13:28
PROVIDERS: PCP Internal Medicine; Visit Provider Internal Medicine
DX: I35.0 Nonrheumatic aortic (valve) stenosis (principal); R03.0 Elevated blood-pressure reading, without diagnosis of hypertension; F33.1 Major depressive disorder, recurrent, moderate; F41.9 Anxiety disorder, unspecified; E78.5 Hyperlipidemia, unspecified

== ENCOUNTER → 2024-11-12 13:27 | Outpatient (BNVA) | payer MEDICARE, MEDICAID, SELFPAY | PROVIDERS: PCP Internal Medicine; Visit Provider Internal Medicine | DX: I35.0 Nonrheumatic aortic (valve) stenosis (principal); R03.0 Elevated blood-pressure reading, without diagnosis of hypertension; F41.9 Anxiety disorder, unspecified; F33.1 Major depressive disorder, recurrent, moderate; E78.5 Hyperlipidemia, unspecified | CPT/HCPCS: 96127; 99212 ==

== ENCOUNTER 2025-01-24 08:32 | Outpatient (REF) | payer MEDICARE, MEDICAID, SELFPAY ==
--- OUTSIDE RECORDS SUMMARY | 2025-01-22 23:59 | XMS_ITS | Continuity of Care Document ---
Author Organization [facility] Address [address] [place] [address]- Care Team Providers Care Acoustical Carpenter Name Role Phone Rene EWING, Jerry Villatoro Primary Care Physician Encounter [facility] Date(s): 12/23/24 - 01/22/[address] [facility] [address], [place] [address] Encounter Type: Triage Allergies, Adverse Reactions, Alerts Substance Criticality Severity Reaction Reaction Severity Status azithromycin upset stomach A ctive sulfamethoxazole anaphylaxis Active Tylenol rash Active Medications aspirin 81 mg oral capsule 1 capsule = 81 mg, By Mouth, Every 24 hours, 0 Refills, Maintenance, 08/14/24 2:27:00 PM EST, Partialfill upon patient request if the prescription is for a schedule II opioid drug. Start Date: 08/14/24 Status: Ordered Repeat number: 1 atorvastatin 80 mg oral tablet = 80 mg, By Mouth, Daily at bedtime, # 30 tablet, 4 Refills, Maintenance, 12/06/24 3:57:00 PM EDT, Tablet, [facility], Partial fill upon patient request if the prescription is for a schedule II opioid drug., 158, cm, 12/06/24 14:45:00 EDT, Height, 54, kg, 09/27/24 14:43:00 EDT, DryWeight Start Date: 12/06/24 Stop Date: 05/05/25 Status: Ordered Quantity: 30.0 Unit: tablet Repeat number: 5 Betadine 10% swab See Instructions, apply to dry gangrene of the toes daily, keep clean and covered with gauze, # 1 each, 0 Refills, Maintenance, 09/13/24 10:34:00 AM EST, [facility], Partial fill uponpatient request if the prescription is for a schedule II opioid drug., apply to dry gangrene of thetoes daily, keep clean and covered with gauze, 158, cm, 09/10/24 13:22:00 EST, Height, 55.9, kg, 08/29/24 16:58:00 EST, Dry Weight Start Date: 09/13/24 Status: Ordered Quantity: 1.0 Unit: each Repeat number: 1 carisoprodol 350 mg oral tablet 1 tablet = 350 mg, By Mouth, 3 times a day, 0 Refills, Maintenance, 09/10/15 9:22:31 AM EST, Tablet Start Date: 09/10/15 Status: Ordered Repeat number: 1 doxycycline monohydrate 100 mg oral capsule 1 capsule = 100 mg, By Mouth, 2 times a day, for 10 days, # 20 capsule, 0 Refills, Acute 01/26/25 10:23:00 AM EDT, 01/16/25 10:23:00 AM EDT, [facility], Partial fill upon patient request if the prescription is for a schedule II opioid drug., 158, cm, 01/01/25 14:25:00 EDT, Height, 54.9, kg, 01/13/25 11:55:00 EDT, Dry Weight Start Date: 01/16/25 Stop Date: 01/26/25 Status: Ordered Quantity: 20.0 Unit: capsule Repeat number: 1 Iodosorb 0.9% topical gel See Instructions, Apply to left great toe amputation site every other day, # 1 each, 0 Refills, Maintenance, 11/18/24 2:34:00 PM EDT, [facility], Partial fill upon patient request ifthe prescription is for a schedule II opioid drug., Apply to left great toe amputation site every other day, 158, cm, 11/18/24 13:51:00 EDT, Height, 54, kg, 09/27/24 14:43:00 EDT, Dry Weight Start Date: 11/18/24 Status: Ordered Quantity: 1.0 Unit: each Repeat number: 1 Indications: 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 Start Date: 08/29/24 Status: Ordered Repeat number: 1 Omeprazole By Mouth, Daily, 0 Refills, Maintenance, 04/28/23 11:53:00 AM EDT, Partial fill upon patient request if the prescription is for a schedule II opioid drug. Start Date: 04/28/23 Status: Ordered Repeat number: 1 oxyCODONE 5 mg oral tablet 20 mg, By Mouth, Every 4 hours, PRN, Refills 0, Tot. Refills 0, Maintenance, Pain , Moderate, 08/31/24 9:51:00 AM EST, Partial fill upon patient request if the prescription is for a schedule II opioiddrug. Start Date: 08/31/24 Status: Ordered Repeat number: 1 rivaroxaban 2.5 mg oral tablet = 2.5 mg, By Mouth, 2 times a day, # 60 tablet, 6 Refills, Maintenance, 10/30/24 9:49:00 AM EDT, Tablet, [facility], Partial fill upon patient request if the prescription is for a schedule II opioid drug., 158, cm, 10/29/24 15:42:00 EDT, Height, 54, kg, 09/27/24 14:43:00 EDT, Dry Weight Start Date: 10/30/24 Stop Date: 05/28/25 Status: Ordered Quantity: 60.0 Unit: tablet Repeat number: 7 Singulair 10 mg oral tablet 1 tablet = 10 mg, By Mouth, Daily in PM, # 30 tablet, 0 Refills, Maintenance, 09/10/15 9:21:27 AM EST, Tablet Start Date: 09/10/15 Status: Ordered Quantity: 30.0 Unit: tablet Repeat number: 1 Valium 2 mg oral tablet 1 tablet = 2 mg, By Mouth, 3 times a day, PRN as needed for anxiety, 0 Refills, Maintenance, :23:45 AM EST, Tablet Start Date: 09/10/15 Status: Ordered Repeat number: 1 Ventolin 90 mcg Inhaler 2, puffs, Inhalation, 4 times a day, Maintenance, 09/10/15 9:23:21 AM EST Start Date: 09/10/15 Status: Ordered Repeat number: 1 ZTlido 1.8% topical film 0 Refills, Maintenance, 08/14/24 2:26:00 PM EST, Partial fill upon patient request if the prescription is for a schedule II opioid drug. 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 Confirmed Active PVD (peripheral vascular disease) Confirmed Active Social History Social History Type Response Smoking Status Current every day sm oker; Tobacco user in household: No entered on: 09/10/15 Sex Sex Representation Female (finding) Patient Care team information Care Team Personnel Name: Rene EWING, Jerry Villatoro Position: Reference Physician Member Role: PCP Address: [address] [place] [address] Telecom: Name: Neil Ortiz RN Position: S RN Member Role: Primary Care Nurse Name: Tova Membreno RN Position: S RN Member Role: Primary Care Nurse Care Team Related Persons Name: CUMMINGSPOOL ROSALES Name: HAMILTON CUMMINGS Insurance Providers Guarantor name: JAGDEEP REDDYILL Health Plan Information #: 1 Payer: MEDICARE A INPT 25 Payer Identifier: NAKUL Member Number: [id number] Group Number: [id number] Subscriber Identifier: [id number] Relationship to Subscriber: self Coverage Type: MEDICARE Coverage Verification Date: NA Telecom: NA Address: Health Plan Information #: 2 Payer: [employer] Payer Identifier: NAKUL Member Number: [id number] Group Number: [id number] Subscriber Identifier: [id number] Relationship to Subscriber: self Coverage Type: MEDICAID Coverage Verification Date: NA Telecom: NA Address:
--- OUTSIDE RECORDS SUMMARY | 2025-01-24 08:35 | XMS_ITS | Clinical Summary ---
Author Organization [facility] [address] [facility] Address [address] [place] [address] Phone Care Team Providers Care Aviation Boatswain'S Mate Name Role Phone Jerry López MD Primary Care Provider [phone] Allergies Active Allergy Reactions Criticality Noted Date [...] 07/15/2024 Fatty liver 07/15/2024 Pancreatic cyst 07/15/2024 Encounters Date Type Department Care Team Description 11/21/2024 Telephone Gastroenterology - [address] [place] [phone] Clifton Hines MD from Last 3 Months Social History Tobacco Use Types Packs/Day Years [...] Care Team (Late st Contact Info) Description 02/25/2025 3:00 PM EDT Office Visit Gastroenterology - [address] [phone] Alessia Briscoe MD 299 [facility] [address] [place] [address] Health Maintenance Due Date Last Done Comments Diabetes: Annual GFR (Glomerular Filtration Rate) 1965 COVID-19 Vaccine (#1) 1971 Diabetes: Annual Foot Exam 01/08/1976 Diabetes: Annual Retina Eye Exam 01/08/1976 DTaP,Tdap,and Td Vaccines (1 - Tdap) 1985 Hepatitis B Vaccines (1 of 3 - 19+ 3-dose series) 1985 Pneumococcal Vaccine: 50+ Years (1 of 2 - PCV) 1985 Zoster [...] Cancer Screening 03/01/2025 03/01/20, 10/15/2021 Influenza Vaccine (#1) 2025 , 03/15/2016 RSV Immunization Adult Patients (1 - 1-dose 75+ series) 2041 Hepatitis C Screening Completed 08/05/2016 HIB Vaccines [...] PM EDT Narrative 03/01/2023 3:00 PM EDT [facility] Diagnostic Imaging Department [address] [place] [address] Patient: ARABELLA ESTRADA [place]/Age/Sex: 1965 - 58 - F Unit#: [id number] Location/Status: [facility] CLI Mnemonic/Ordering Site: [facility] Ordering Physician: JERRY LÓPEZ MD [facility] Screening Digital - 03/01/23 - 1303 Report Status:Signed EXAM: [facility] Screening Digital EXAM DATE AND TIME: 03/01/2023 1:04 PM HISTORY: Annual screening COMPARISON: 10/15/2021, 02/08/2019, 06/02/2017 TECHNIQUE: Bilateral digital breast tomosynthesis was performed in the CC and MLO projections. Computer aided detection with Foodist 3D 3.1 was employed. TISSUE DENSITY: b. There are scattered areas of fibroglandular density. FINDINGS: No suspicious masses, grouped microcalcifications, or areas of architectural distortion are seen. The skin and vascularity are unremarkable. IMPRESSION: Stable mammographic appearance of the breasts. No evidence of malignancy is seen. A negative mammogram in the presence of a clinically suspicious palpable abnormality does not preclude the possibility of malignancy or alter the indications for biopsy. BI-RADS: Category 1: Negative RECOMMENDATION(S): 1: Routine screening mammogram BILATERAL in 1 year. 6311F, 7001F Dictating Physician: ARDEN MONTIEL MD Electronically Signed by: ARDEN MONTIEL MD Dic Date/Time: 03/01/23 1458 Sign date/Time: 03/01/23 1500 Procedure Note Arden Montiel MD - 08/15/2023 [facility] Diagnostic Imaging Department [address] [place] [id number] Patient: ARABELLA ESTRADA Parish Sotelo[place]./Age/Sex: 1965 - 58 - F Unit#: [id number] [facility] CLI Mnemonic/Ordering Site: [facility] Ordering Physician: JERRY LÓPEZ MD [facility] Screening Digital - 03/01/23 - 1303 Report Status:Signed EXAM: [facility] Screening Digital EXAM DATE AND TIME: 03/01/2023 1:04 PM HISTORY: Annual screening COMPARISON: 10/15/2021, 02/08/2019, 06/02/2017 TECHNIQUE: Bilateral digital breast tomosynthesis was performed in the CCand MLO projections. Computer aided detection with Foodist 3D 3.1was employed. TISSUE DENSITY: b. There [...] Routine screening mammogram BILATERAL in 1 year. 3349F, 7068F Dictating Physician: ARDEN MONTIEL MD Electronically Signed by: ARDEN MONTIEL MD Dic Date/Time: 03/01/23 1458 Sign date/Time: 03/01/23 1500 Jerry López MD IMG BI PROCEDURES Final Result from Last 3 Months or Most Recently Relevant to Health Maintenance Insurance MEDICARE MEDICAID - [place] Care Teams Aviation Boatswain'S Mate Relationship Specialty Start Date End Date Jerry López MD [address] [place] [address] PCP - General Internal Medicine 02/05/21
--- OUTSIDE RECORDS SUMMARY | 2025-01-24 08:35 | XMS_ITS | Clinical Summary ---
Author Organization [facility] Address [address] [place] [address] Care Team Providers Care Warehouse Pricing And Inventory Clerk Name Role Phone Jerry López MD Primary Care Provider [phone] Allergies Active Allergy Reactions Criticality Noted Date [...] 105 02/05/2021 10:17 AM EDT Temperature 37.6 C (99.6 F) 02/05/2021 10:17 AM EDT Respiratory Rate - - Oxygen Saturation 100% [...] (1 of 2) 01/08/2016 Influenza Vaccine (#1) 2025 RSV Ped < 20 months Aged Out No longe r eligible based on patient's age to complete this topic Care Teams Warehouse Pricing And Inventory Clerk Relationship Specialty Start Date End Date Jerry López MD [address] [place] [address] [place] [address] PCP - General Internal Medicine 02/05/21
--- OUTSIDE RECORDS SUMMARY | 2025-01-24 08:35 | XMS_ITS | Clinical Summary ---
Author Organization [facility] Address [address] [place] [address] Care Team Providers Care Material Reprocessing Associate Name Role Phone Unavailable Primary Care Provider [...] of Health Annual Screening 07/10/2024 Influenza Vaccine (#1) 2025 04/11/2016, 2015 RSV Vaccine (60+ years old a nd patients) (1 - 1-dose 75+ series) 2041 [place] [address] [facility] [place] [address]
--- OUTSIDE RECORDS SUMMARY | 2025-01-24 08:35 | XMS_ITS | Encounter Summary ---
Author Organization [facility] Address [address] [place] [address] [place], [place] [phone] Phone Care Team Providers Care Administrative Services Specialist Name Role Phone Jerry López MD Primary Care Provider Lizeth way Encounter Details Date Type Department Care Team (Late st Contact Info) Description 05/24/2019 Ancillary Orders [facility], X-Ray - [address] [address] Osmani Ortega MD [address] [place] [address] [email or web address] Low back pain, unspecified back pain laterality, unspecified chronicity, unspecified whether sciatica present Social History Tobacco Use Types Packs/Day Years Used Date Smoking Tobacco: Former Cigarettes 0.5 30 Smokeless Tobacco: Never Alcohol Use Standard Drinks/Week Comments No 0 (1 standard drink = 0.6 oz pur e alcohol) Comments Unknown Sex and Gender Information Value Date Recorded Sex Assigned at Not on file Legal Sex Female 2:49 PM EST Gender Identity Not on file Sexual Orientation Not on file documented as of this encounter Plan of Treatment Not on file documented as of this encounter Results * XR PELVIS 1 VIEW (05/24/2019 1:22 PM EST) Anatomical Region Laterality Modality Pelvis Radiographic Eliana ging 05/24/2019 1:36 PM EST Impressions 05/24/2019 1:39 PM EST Other than minor S-shaped spurring on the right superiorly evaluation of the hips is unremarkable. No joint space narrowing or subluxation is seen. No femoral head deformity is evident. S/S: xr pelvis/ xr lumabr complete with flexion extension . Low back pain, prior lumbar surgery POS - [id number] Narrative 05/24/2019 1:39 PM EST COMPARISON: None FINDINGS: An AP film of the pelvis is obtained. There is minor acetabular spurring evident on the right. No femoral head spurring with deformity is seen. No joint space narrowing is seen. The bowel pattern is non-specific. SI joints are unremarkable. Minor lower lumbar spurring is seen. Procedure Note Nate Roberts MD - 05/24/2019 COMPARISON: None FINDINGS: An AP film of the pelvis is obtained. There is minor acetabular spurring evident on the right. No femoral headspurring with deformity is seen. No joint space narrowing is seen. The bowel pattern is non-specific. SI joints are unremarkable. Minor lower lumbar spurring is seen. IMPRESSION: Other than minor S-shaped spurring on the right superiorly evaluation ofthe hips is unremarkable. No joint space narrowing or subluxation is seen.No femoral head deformity is evident. S/S: xr pelvis/ xr lumabr complete with flexion extension . Low backpain, prior lumbar surgery POS - [id number] us Osmani Ortega MD IMG XR PELVIS Final Res ult * XR LUMBOSACRAL SPINE MINIMUM 6 VIEWS, INCLUDES BENDING VIEWS (05/24/2019 1:21 PM EST) Anatomical Region Laterality Modality L-spine Radiographic Eliana ging 05/24/2019 1:39 PM EST Impressions 05/24/2019 1:52 PM EST Mild lumbar spondylosis with grade 1 anterior spondylolisthesis of L4 on L5. No abnormal motion seen on flexion extension views. Extensive facet arthropathy evident in the right at L4-5 without pars defect seen. S/S: Low back pain, previous L4-5 decompression, spondylo-listhesis, lumbar spondylosis. POS - [id number] Narrative 05/24/2019 1:52 PM EST COMPARISON: None FINDINGS: AP, lateral neutral, lateral flexion, and lateral extension views of the lumbar spine are obtained. Both oblique views and a coned-down view of the lumbar spine are also obtained. There is loss of disc space height evident at L3-4 and L4-5 with mild grade 1 anterior spondylolisthesis of L4 on L5 evident. On lateral flexion extension views the amount of spondylolisthesis at L4-5 is unchanged without abnormal motion noted. Bony spurring is most prominent at the L3-4 interspace. On oblique views there is prominent facet joint sclerosis evident on the right at L4-5. No pars defects are seen. No compression fracture is noted. SI joints are unremarkable. Procedure Note Nate Roberts MD - 05/24/2019 COMPARISON: None FINDINGS: AP, lateral neutral, lateral flexion, and lateral extension views of thelumbar spine are obtained. Both oblique views and a coned-down view of thelumbar spine are also obtained. There is loss of disc space height evident at L3-4 and L4-5 with mildgrade 1 anterior spondylolisthesis of L4 on L5 evident. On lateral flexion extension views the amount of spondylolisthesis at L4-5is unchanged without abnormal motion noted. Bony spurring is most prominent at the L3-4 interspace. On oblique views there is prominent facet joint sclerosis evident on theright at L4-5. No pars defects are seen. No compression fracture is noted. SI joints are unremarkable. IMPRESSION: Mild lumbar spondylosis with grade 1 anterior spondylolisthesis of L4 onL5. No abnormal motion seen on flexion extension views. Extensive facetarthropathy evident in the right at L4-5 without pars defect seen. S/S: Low back pain, previous L4-5 decompression, spondylo-listhesis,lumbar spondylosis. POS - [id number] Osmani Ortega MD IMG XR SPINE Final Res ult documented in this encounter Visit Diagnoses Diagnosis Low back pain, unspecified back pain laterality, unspecified chronicity, unspecified whether sciatica present Low back pain, unspecified back pain laterality, unspecified chronicity, unspecified whether sciatica present Low back pain, unspecified back pain laterality, unspecified chronicity, unspecified whether sciatica present documented in this encounter Care Teams Administrative Services Specialist Relationship Specialty Start Date End Date Jerry López MD PCP - General Internal Medicine 05/14/18 documented as of this encounter Additional Source Comments The information contained in this document represents components of the legal health record. It is not the complete legal health record.[facility]
[2025-01-24 11:58] LABS: Alanine Aminotransferase 14 U/L (0-31); Albumin Level 4.3 g/dL (3.5-5.0); Alkaline Phosphatase 74 U/L (39-117); Anion Gap 11 (12-20); Aspartate Amino Transferase 22 U/L (5-31); Blood Urea Nitrogen 8 mg/dL (9-16); Calcium 9.3 mg/dL (8.4-10.2); Carbon Dioxide 26 mmol/L (22-29); Chloride 104 mmol/L (96-108); Cholesterol 142 mg/dL (<200); Estimated Glomerular Filt Rate > 60; HDL Cholesterol 38 mg/dL (>40); Potassium 4.4 mmol/L (3.3-5.1); Sodium 137 mmol/L (135-145); Total Protein 7.0 g/dL (6.5-8.0); Triglycerides 198 mg/dL (<150)
== END 2025-01-24 08:33 | disposition home or self-care (01) ==
LOC: HO.WFDLDS 08:32
PROVIDERS: Visit Provider Internal Medicine
DX: I35.0 Nonrheumatic aortic (valve) stenosis (principal); E78.5 Hyperlipidemia, unspecified; E55.9 Vitamin D deficiency, unspecified
CPT/HCPCS: 36415; 80053; 80061; 82306

== ENCOUNTER → 2025-02-24 23:59 | Outpatient (BNV) | payer MEDICARE, MEDICAID, SELFPAY | PROVIDERS: PCP Internal Medicine; Visit Provider Internal Medicine | DX: E11.51 Type 2 diabetes mellitus with diabetic peripheral angiopathy without gangrene (principal); I10 Essential (primary) hypertension; E78.5 Hyperlipidemia, unspecified | CPT/HCPCS: G0180 ==

== ENCOUNTER 2025-05-13 12:35 | Outpatient (AMB) | payer MEDICARE, MEDICAID, SELFPAY ==
--- OUTSIDE RECORDS SUMMARY | 2025-05-08 22:59 | XMS_ITS | Continuity of Care Document ---
Author Organization [facility] Address [address] [place] [address]- Care Team Providers Care Speech And Hearing Director Name Role Phone Rene EWING, Jerry Villatoro Primary Care Physician [place] [facility] [place]): [place]25 - 05/08/25 [facility] [address], [place] [address] Encounter Type: Triage Allergies, Adverse Reactions, Alerts [...] opioid drug. Start Date: 08/14/24 Status: Ordered Medication Dispense Status: Completed Total Allowed Fills: 1 Fills Dispensed: 0 atorvastatin 80 mg oral tablet 1 tablet, By Mouth, Daily at bedtime, # 30 tablet, 4 Refills, Maintenance, 05/08/25 8:25:00 AM EDT,[facility], 158, cm, 04/07/25 12:37:00 EDT, Height, 55.4, kg, 01/24/25 10:57:00 EDT, Dry Weight Start Date: 05/08/25 Status: Ordered Medication Dispense Status: Completed Quantity: 30.0 Unit: tablet Total Allowed Fills: 1 Fills Dispensed: 0 Betadine 10% swab See Instructions, apply to [...] Dry Weight Start Date: 09/13/24 Status: Ordered Medication Dispense Status: Completed Quantity: 1.0 Unit: each Total Allowed Fills: 1 Fills Dispensed: 0 carisoprodol 350 mg oral tablet 1 tablet = 350 mg, By Mouth, 3 times a day, 0 Refills, Maintenance, 09/10/15 9:22:31 AM EST, Tablet Start Date: 09/10/15 Status: Ordered Medication Dispense Status: Completed Total Allowed Fills: 1 Fills Dispensed: 0 Iodosorb 0.9% topical gel See Instructions, Apply to left great toe amputation site every other day, # 1 each, 0 Refills, Maintenance, 11/18/24 2:34:00 PM EDT, [facility], Partial fill upon patient request ifthe prescription is for a schedule II opioid drug., Apply to left great toe amputation site every other day, 158, cm, 11/18/24 13:51:00 EDT, Height, 54, kg, 09/27/24 14:43:00 EDT, Dry Weight Start Date: 11/18/24 Status: Ordered Medication Dispense Status: Completed Quantity: 1.0 Unit: each Total Allowed Fills: 1 Fills Dispensed: 0 Indications: Complete traumatic amputation of left great [...] opioid drug. Start Date: 08/29/24 Status: Ordered Medication Dispense Status: Completed Total Allowed Fills: 1 Fills Dispensed: 0 Omeprazole By Mouth, Daily, 0 Refills, Maintenance, 04/28/23 11:53:00 AM EDT, Partial fill upon patient request if the prescription is for a schedule II opioid drug. Start Date: 04/28/23 Status: Ordered Medication Dispense Status: Completed Total Allowed Fills: 1 Fills Dispensed: 0 oxyCODONE 5 mg oral tablet 20 mg, By Mouth, Every 4 hours, PRN, Refills 0, Tot. Refills 0, Maintenance, Pain , Moderate, 08/31/24 9:51:00 AM EST, Partial fill upon patient request if the prescription is for a schedule II opioiddrug. Start Date: 08/31/24 Status: Ordered Medication Dispense Status: Completed Total Allowed Fills: 1 Fills Dispensed: 0 rivaroxaban 2.5 mg oral tablet = 2.5 [...] Date: 10/30/24 Stop Date: 05/28/25 Status: Ordered Medication Dispense Status: Completed Quantity: 60.0 Unit: tablet Total Allowed Fills: 7 Fills Dispensed: 0 Singulair 10 mg oral tablet 1 tablet = 10 mg, By Mouth, Daily in PM, # 30 tablet, 0 Refills, Maintenance, 09/10/15 9:21:27 AM EST, Tablet Start Date: 09/10/15 Status: Ordered Medication Dispense Status: Completed Quantity: 30.0 Unit: tablet Total Allowed Fills: 1 Fills Dispensed: 0 Valium 2 mg oral tablet 1 tablet = 2 mg, By Mouth, 3 times a day, PRN as needed for anxiety, 0 Refills, Maintenance, :23:45 AM EST, Tablet Start Date: 09/10/15 Status: Ordered Medication Dispense Status: Completed Total Allowed Fills: 1 Fills Dispensed: 0 Ventolin 90 mcg Inhaler 2, puffs, Inhalation, 4 times a day, Maintenance, 09/10/15 9:23:21 AM EST Start Date: 09/10/15 Status: Ordered Medication Dispense Status: Completed Total Allowed Fills: 1 Fills Dispensed: 0 ZTlido 1.8% topical film 0 Refills, Maintenance, 08/14/24 2:26:00 PM EST, Partial fill upon patient request if the prescription is for a schedule II opioid drug. 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 PVD (peripheral vascular disease) Confirmed Active Social History Social History Type Response Smoking Status Current every day sm oker; Tobacco user in household: No entered on: 09/10/15 Sex Sex Representation Female (finding) Implantable Device List Procedure Provider Procedure Date Device Type Site Bypass Femoral Popliteal with Vein Adam Chand MD 01/24/25 Unknown Leg Left Device Identifier Serial Number Lot or Batch Number Manufacturing Date Expiration Date Distinct Identification Code MRI Safety Implantable Status Assigning Authority Unknown [id number] L=79cm, D=4-7mm Unknown 10/15/31 Unknown Unknown Active Unknown Patient Care team information Care Team Personnel Name: Tamika Nye RN Position: S RN Member Role: Primary Care Nurse Name: Rene EWING, Jerry Villatoro Position: Reference Physician Member Role: PCP Address: [address] [place] [address] Telecom: Name: Neil Ortiz RN Position: S RN Member Role: Primary Care Nurse Name: Tova Membreno RN Position: S RN Member Role: Primary Care Nurse Name: Padmini aGllegos RN Position: S RN Member Role: Primary Care Nurse Care Team Related Persons Name: ZOILA POOL Name: HAMILTON CUMMINGS Insurance Providers Guarantor name: JAGDEEP CUMMINGS Health Plan Information #: 1 Payer: MEDICARE B Payer Identifier: NA Member Number: [id number] Group Number: NA Subscriber Identifier: NA Relationship to Subscriber: self Coverage Type: NA Coverage Verification Date: NA Telecom: NA Address: Health Plan Information #: 2 Payer: Investor [employer] CUSTOMER SERVICE Payer Identifier: NA Member Number: [id number] Group Number: NA Subscriber Identifier: NA Relationship to Subscriber: self Coverage Type: MEDICAID Coverage Verification Date: NA Telecom: NA Address:
--- OUTSIDE RECORDS SUMMARY | 2025-05-08 22:59 | XMS_ITS | Continuity of Care Document ---
Author Organization [facility] Address [address] [place] [address]- Care Team Providers Care Hazard Mitigation Officer Name Role Phone Rene EWING, Jerry Villatoro Primary Care Physician [place] [facility] [place] 05/08/25 [facility] [address], [place] [address] Encounter Type: Triage Allergies, Adverse Reactions, [...] MRI Safety Implantable Status Assigning Authority Unknown [id number] L=79cm, D=4-7mm Unknown 10/15/31 Unknown Unknown Active Unknown Patient Care team information Care Team Personnel Name: Tamika Nye RN Position: S RN Member Role: Primary Care Nurse Name: Rene EWING, Jerry Villatoro Position: Reference Physician Member Role: PCP Address: [address] [place] [address] Telecom: Name: Neil Ortiz RN Position: S RN Member Role: Primary Care Nurse Name: Tova Membreno RN Position: S RN Member Role: Primary Care Nurse Name: Padmini Gallegos RN Position: S RN Member Role: Primary Care Nurse Care Team Related Persons Name: ZOILA POOL Name: HAMILTON CUMMINGS Insurance Providers Guarantor name: JAGDEEP CUMMINGS Health Plan Information #: 1 Payer: MEDICARE B Payer Identifier: NA Member Number: [id number] Group Number: NA Subscriber Identifier: NA Relationship to Subscriber: self Coverage Type: NA Coverage Verification Date: NA Telecom: NA Address: Health Plan Information #: 2 Payer: [employer]USTOMER SERVICE Payer Identifier: NA Member Number: [id number] Group Number: NA Subscriber Identifier: NA Relationship to Subscriber: self Coverage Type: MEDICAID Coverage Verification Date: NA Telecom: NA Address:
--- NOTE | 2025-05-13 12:56 | A.OFFVIS_ITS ---
Vital Signs 05/13/25 12:57 Height 5 ft 2 in Weight 128 lb 15.527 oz BMI 23.6 BP 166/78 H Blood Pressure Location Rt brachial Position Sitting Pulse 112 H Pulse Source Pulse Oximeter Pulse Oximetry (%) 97 Oxygen Delivery Method Room Air Intake Visit Reasons: f/u adrenal adenomas Intake Note: Patient present today for Adrenal Adenoma follow up. 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 Last year she has a normal dexamethasone suppression test. She is here for fup left adrenal incidentaloma, which has been stable has low density HU 8, contrast washout is > 73 %, all hormones are normal no excess. She had MRI at [facility], non Contrast on 10/04/17 the left adrenal nodule was not appreciated in the test. She has PMH of GERD, asthma, chronic back pain, depression, questionable history of diabetes mellitus. She was found to have a left adrenal mass measuring 1.6 cm and the Hounsfield units was 95 but the washout the Hounsfield units was not reported. She had negative work up for hyperaldosteronism, valentina or pheochromocytoma. She has a change in skin color in her left side of the body ( flank and upper leg) she denies rash, nausea, vomiting, positive diarrhea, she was placed on pancreatic enzymes and is not helping. Denies palpitations, sweating, flushing, headache, anxiety, irritability. Her grand father had pancreatic cancer, grand mother had breast cancer. She has a cancerous polyp from colon removed few years ago, she had total hysterectomy for cervical cancer 28 years ago. She was smoker since age 15 to 1.5 year ago. heavy smoker. 10/15/18 CT abdomen. There is a left adrenal 1.5 x 1.5 cm lesion. On the precontrast, it measures -0.5 Hounsfield units. Immediately postcontrast, it measures 61 Hounsfield units and delayed 10 minute washout measures 23 Hounsfield units. The absolute washout is 61.8% and relative washout is 62.8%. These above findings are consistent with adenoma. She does complain of some facial swelling and chronic easy bruising as well as episodes of sweating associated with headache. A plasma normetanephrine and metanephrine level was slightly elevated. .t 24 hr urinewas nl for mets, nor mets . Has spells with sweating and palpitations . No sx of Cushings The patient is a 60-year-old female presenting with concerns regarding an adrenal tumor, vascular insufficiency, and a facial lesion. The adrenal tumor was initially identified in 2015 or 2016, with recent imaging showing an increase in size from 2 cm in 2021 to 2.3 cm. The tumor has been monitored with imaging and adrenal protocol tests, which have indicated it is likely benign and not producing hormones. The patient has been advised to undergo a dexamethasone suppression test annually to monitor hormone production. The patient experienced a traumatic injury to the foot, resulting in infection and subsequent amputation of one whole toe and two half toes. The infection has been recurrent, responding to antibiotics but returning upon cessation of treatment. [facility] Medical History (Updated 11/12/24 @ 19:15 by Jessica Lemus MD) Back pain History of cervical cancer Obesity (BMI 30-39.9) Anxiety Asthma Adenoma of left adrenal gland Surgical History Amputation of toe History of lumbar laminectomy Hx of knee surgery Hx of shoulder surgery History of back surgery Hx of hysterectomy Family History Father Heart disease Hypertension Diabetes Mother No problems noted. Brother No problems noted. Brother No problems noted. Brother No problems noted. Son No problems noted. Social History Housing: Apartment Alcohol intake: never Patient Tobacco Use Status: Current everyday Tobacco user Tobacco use type: Cigarette Cigarettes Per Day: 5 Years Smoked: 25 years e-Cigarette/Vaping Use: Never Used Second Hand Smoke Exposure: No service: No Current occupational status: disabled Cognitive needs: No Hearing needs: No Vision needs: Yes (glasses) Physical Exam Vital Signs: Last Vital Signs Pulse 112 H 05/13/25 12:57 BP 166/78 H 05/13/25 12:57 Pulse Ox 97 05/13/25 12:57 Oxygen Delivery Method Room Air 05/13/25 12:57 BMI result Body Mass Index 23.6 Assessment & Plan Assessment & Plan (1) Adenoma of left adrenal gland: Code(s): D35.02 - Benign neoplasm of left adrenal gland Category: Medical Plan This is a 56-year-old white female with a history of left adrenal mass with imaging characteristics suggestive of benign adenoma. It appears to be non secretory. Plan is to check 1 mg dexamethasone suppression test with dexamethasone a cortisol levels. Assuming above is normal, we will have patient follow up in 1 year's time 1. Adrenal tumor The tumor has shown a slight increase in size but remains likely benign and non-functional. Annual dexamethasone suppression testing is recommended to monitor for hormonal activity. The patient had an opportunity to ask questions regarding treatment plan. The patient expressed understanding and agreement with the above treatment plan. Patient was informed and verbally consented to the use of an ambient scribe for clinic note documentation during this visit. Orders: Orders Cortisol Random Today D35.02 - Benign neoplasm of left adrenal gland Dexamethasone Today D35.02 - Benign neoplasm of left adrenal gland Medications: New dexamethasone 1 mg PO ONCE 1 tab 0RF Coding Level of Care Code Est Pt Level 3 (25543) Diagnoses Adenoma of left adrenal gland D35.02
[2025-05-13 12:57] VITALS: BP 166/78; PULSE 112; O2SAT 97; BMI 23.6
--- OUTSIDE RECORDS SUMMARY | 2025-05-13 15:16 | XMS_ITS | Encounter Summary ---
Author Organization [facility] Address [facility] [employer] [facility] [address] [place], [place] [id number] Phone Care Team Providers Care Milanese Knitting Machine Operator Name Role Phone Jerry López MD Primary Care Provider [phone] Encounter Details Date Type Department Care Team (Late st Contact Info) Description 05/24/2019 Ancillary Orders [facility], X-Ray - [address] [address] JordanOsmani MD [address] [place] [phone] [email or web address] Low back pain, unspecified back pain laterality, [...] present documented in this encounter Care Teams Milanese Knitting Machine Operator Relationship Specialty Start Date End Date Jerry López MD [address] [place] [address] Dr Crews [address] [place] [address], [place] [address] PCP - General Internal Medicine 05/14/18 documented as of this encounter Additional Source Comments The information contained in this document represents components of the legal health record. It is not the complete legal health record.[facility]
--- OUTSIDE RECORDS SUMMARY | 2025-05-13 15:17 | XMS_ITS | Encounter Summary ---
Author Organization [facility] Address [address] [place] [address] Phone Care Team Providers Care Life Insurance Actuary Name Role Phone Jerry López MD Primary Care Provider [phone] Encounter Details Date Type Department Care Team (Late st Contact Info) Description 04/07/2020 Procedure Pass [facility] [place] [facility], 2nd Floor, [address] [place] [address] Social History Tobacco Use Types Packs/Day Years [...] on file documented as of this encounter Visit Diagnoses Not on filedocumented in this encounter Care Teams Life Insurance Actuary Relationship Specialty Start Date End Date Jerry López MD [address] [place] [address] [place] [address] PCP - General Internal Medicine 05/14/18 documented as of this encounter Additional Source Comments The information contained in this document represents components of the legal health record. It is not the complete legal health record.[facility]
--- OUTSIDE RECORDS SUMMARY | 2025-05-13 15:17 | XMS_ITS | Encounter Summary ---
Author Organization [facility] Address [facility] [employer] [facility] [address] [place] [address] Phone Care Team Providers Care Automatic Screwmaker Name Role Phone Unknown, Unknown Primary Care Provider Jerry Hanna MD Primary Care Provider [phone] Encounter Details Date Type Department Care Team (Late st Contact Info) Description 07/25/2017 Procedure Pass [facility] - [facility], [facility] [address] [place] [address] Social History Tobacco Use Types Packs/Day Years Used Date Smoking Tobacco: Former Cigarettes 0.5 30 Alcohol Use Standard Drinks/Week Comments No 0 [...] on filedocumented in this encounter Care Teams Automatic Screwmaker Relationship Specialty Start Date End Date Unknown, Unknown, PCP - General 06/23/17 05/13/18 Jerry López MD [address] [place] [address] [place] [address] PCP - General Internal Medicine 05/14/18 documented as of this encounter Additional Source Comments The information contained in this document represents components of the legal health record. It is not the complete legal health record.[facility]
--- OUTSIDE RECORDS SUMMARY | 2025-05-13 15:18 | XMS_ITS | Encounter Summary ---
Author Organization [facility] Address [facility] [email or web address] [facility] [address] [place] [address] Phone Care Team Providers Care Boat Joiner Name Role Phone Jerry López MD Primary Care Provider [phone] Encounter Details Date Type Department Care Team ([facility] st Contact Info) Description 12/11/2020 Documentation [facility] [place] Rheumatology [address], [address] Floor, [address] [place] [address] Karlos Sheehan [place], [place] [address] [place] [phone] [email or web address] Social History Tobacco Use Types Packs/Day Years [...] on filedocumented in this encounter Care Teams Boat Joiner Relationship Specialty Start Date End Date Jerry López MD [address] [place] [address] [place] [address] PCP - General Internal Medicine 05/14/18 documented as of this encounter Additional Source Comments The information contained in this document represents components of the legal health record. It is not the complete legal health record.[facility]
--- OUTSIDE RECORDS SUMMARY | 2025-05-13 15:18 | XMS_ITS | Clinical Summary ---
Author Organization [facility] [address] [facility] Address [address] [place] [address] Phone Care Team Providers Care Runner Worker Name Role Phone Jerry López MD Primary Care Provider [phone] Allergies Active Allergy Reactions Criticality Noted Date [...] 07/15/2024 12:45 PM EST Plan of Treatment Health Maintenance Due Date Last Done Comments Colorectal Cancer Screening: Colonoscopy 1965 Diabetes: Annual GFR (Glomerular Filtration Rate) 1965 Diabetes: Annual Foot Exam 01/08/1976 Diabetes: Annual Retina Eye Exam 01/08/1976 DTaP,Tdap,and Td Vaccines (1 - Tdap) 1985 Hepatitis B Vaccines (1 of 3 - 19+ 3-dose series) 1985 Pneumococcal Vaccine: 50+ Years (1 of 2 - PCV) 1985 Cervical Cancer Screening: P ap Smear 1987 RSV Immunization Adult Patients (1 - Risk 50-74 years 1-dose series) 01/08/2016 Zoster Vaccines (1 of 2) 01/08/2016 Cholesterol Screening (Lipid Panel) 06/12/2022 HIV Screening 06/12/2022 Medicare Annual Wellness Visit 06/12/2022 Social Influencers of Health Screening 06/12/2022 Diabetes: Annual Urine Albumin-Creatinine Ratio (uACR) 07/08/2022 Diabetes: Blood Sugar Contro l Test (HGBA1C) 07/08/2022 Depression Screening 07/10/2024 Breast Cancer Screening 03/01/2025 03/01/20 23, 10/15/2021 COVID-19 Vaccine (2023-2 5 season) 2025 Influenza Vaccine (#1) 2025 6, 03/15/2016 Hepatitis C Screening Completed 08/05/2016 HIB [...] Procedure Name Priority Date/Time Associated Diagnosis Comments [facility] SCREENING DIGITAL Routine 03/01/2023 3:00 PM EDT Encounter for screening mammogram for malignant neoplasm of breast from Last 3 Months or Most Recently Relevant to Health Maintenance Results * [facility] SCREENING DIGITAL (03/01/2023 3:00 PM EDT) Anatomical Region Laterality Modality Mammography 03/01/2023 12:3 7 PM EDT Narrative 03/01/2023 3:00 PM EDT [facility] Diagnostic Imaging Department [address] [place] [address] Patient: ARABELLA ESTRADA D.O.B./Age/Sex: 1965 - 58 - F Unit#: [id number] Location/Status: SPDIMAM/REG CLI Mnemonic/Ordering Site: [facility] Ordering Physician: JERRY LÓPEZ MD [facility] Screening Digital - 03/01/23 - 1303 Report Status:Signed EXAM: [facility] Screening Digital EXAM DATE AND TIME: 03/01/2023 1:04 PM HISTORY: Annual screening COMPARISON: 10/15/2021, 02/08/2019, 06/02/2017 TECHNIQUE: Bilateral digital breast tomosynthesis was performed in the CC and MLO projections. Computer aided detection with [employer] 3D 3.1 was employed. TISSUE DENSITY: b. [...] screening mammogram BILATERAL in 1 year. 3341F, 7025F Dictating Physician: ARDEN SILVA MD Electronically Signed by: ARDEN SILVA MD Dic Date/Time: 03/01/23 1458 Sign date/Time: 03/01/23 1500 Procedure Note Arden Silva MD - 08/15/2023 [facility] Diagnostic Imaging Department [address] [place] [address] Patient: ARABELLA ESTRADA /Age/Sex: 1965 - 58 - F Unit#: [id number] Location/Status: SPDIMAM/REG CLI Mnemonic/Ordering Site: [facility] Ordering Physician: JERRY LÓPEZ MD [facility] Screening Digital - 03/01/23 - 1303 Report Status:Signed EXAM: [facility] Screening Digital EXAM DATE AND TIME: 03/01/2023 1:04 PM HISTORY: Annual screening COMPARISON: 10/15/2021, 02/08/2019, 06/02/2017 TECHNIQUE: Bilateral digital breast tomosynthesis was performed in the CCand MLO projections. Computer aided detection with [employer] 3D 3.1was employed. TISSUE DENSITY: b. There [...] screening mammogram BILATERAL in 1 year. 3341F, 7025F Dictating Physician: ARDEN SILVA MD Electronically Signed by: ARDEN SILVA MD Dic Date/Time: 03/01/23 9878 Sign date/Time: 03/01/23 1500 Jerry López MD IMG BI PROCEDURES Final Result from Last 3 Months or Most Recently Relevant to Health Maintenance Insurance MEDICARE [place]ICAID - [place] Care Teams Runner Worker Relationship Specialty Start Date End Date Jerry López MD [address] [place] [address] Drive [address] [place] [address] PCP - General Internal Medicine 02/05/21
--- OUTSIDE RECORDS SUMMARY | 2025-05-13 15:18 | XMS_ITS | Clinical Summary ---
Author Organization [facility] Address [address] [place] [address] Care Team Providers Care Salesperson Fashion Accessories Name Role Phone Jerry López MD Primary Care Provider Allergies Active Allergy Reactions Criticality Noted Date [...] age to complete this topic Care Teams Salesperson Fashion Accessories Relationship Specialty Start Date End Date Jerry López MD [address] [place] [address] [place] [address] PCP - General Internal Medicine 02/05/21
--- OUTSIDE RECORDS SUMMARY | 2025-05-13 15:18 | XMS_ITS | Clinical Summary ---
Author Organization [facility] Address [address] [place] [id number] Phone Care Team Providers Care Business Support Name Role Phone Jerry López MD Primary Care Provider [phone] Allergies Active Allergy Reactions Criticality Noted Date Comments Phs Other Free Text-See Phs Viewer 0 08/13/2015 z-pack Sulfa (Sulfonamide Antibiotics) Anaphylaxis High 10/2015 Tylenol (Acetaminophen) Rash High 08/13/2015 Medications esomeprazole (NEXIUM) 20 MG capsule Dose: Not available; Form: Not available; Route: PO; Frequency: QD; Directions: Not available; Details: Dispense: Capsule(s); Date: 08/13/2015 08/13/2015 Active oxyCODONE 15 MG immediate release tablet Dose: Not available; Form: Not available; Route: PO; Frequency: Q4H; Directions: Not available; Details: Dispense: Tablet(s); Date: 08/13/2015 08/13/2015 Active montelukast (SINGULAIR) 10 mg tablet Dose: Not available; Form: Not available; Route: PO; Frequency: QHS; Directions: Not available; Details: Dispense: Tablet(s); Date: 08/13/2015 08/13/2015 Active carisoprodol (SOMA) 350 MG tablet Dose: Not available; Form: Not available; Route: PO; Frequency: QID; Directions: Not available; Details: Dispense: Tablet(s); Date: 08/13/2015 08/13/2015 Active diazepam (VALIUM) 2 MG tablet Dose: Not available; Form: Not available; Route: IV; Frequency: Q4H; Directions: Not available; Details: Dispense: ML(s); Date: 08/13/2015 08/13/2015 Active milnacipran (SAVELLA) 12.5 mg (5)-25 mg(8)-50 mg(42) DsPk Take 1 tablet by mouth as directed. 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 Not on td e 11/04/2022 Are you concerned about learning? Not on file 11/04/2022 No 11/04/2022 No 11/04/2022 Digital Access Answer Date Recorded No 12/05/2022 No 12/05/2022 No 12/05/2022 Reliable internet access at home? Not on file 12/05/2022 Device with a working camera? Not on file Comments Unknown Sex and Gender Information Value Date Recorded Sex Assigned at Not on file Legal Sex Female 2:49 PM EST Gender Identity Not on file Sexual Orientation Not on file Last Filed Vital Signs Vital Sign Reading Time Taken Comments Blood Pressure 133/61 01/28/2021 12:57 PM EDT Pulse 64 01/28/2021 12:57 PM EDT Temperature 36.2 C (97.2 F) 01/28/2021 12:57 PM EDT Respiratory Rate 18 03/17/2017 2:58 PM EDT Oxygen Saturation 98% 01/28/2021 12: 57 PM EDT Inhaled Oxygen Concentration - - Weight 63.4 kg (139 lb 12.8 oz) 021 12:57 PM EDT Height 157.5 cm (5' 2 ) 01/28/2021 12:5 7 PM EDT Body Mass Index 25.57 01/28/2021 12:57 PM EDT Plan of Treatment Health Maintenance Due Date Last Done Comments Adult Td,Tdap Booster 1966 BLOOD PRESSURE 1966 HEMOGLOBIN A1C 1966 DEPRESSION SCREENING 1978 SMOKING Hx and SMOKELESS TOBACCO SCREENING 1979 HIV ONE-TIME SCREENING (18-6 5 YEARS) 01/08/1984 LIPID PANEL 01/08/1984 PNEUMOCOCCAL VACCINES (50+ years) (1 of 2 - PCV) 1985 PAP SMEAR 1987 MAMMOGRAM 2006 COLOGUARD 2011 COLONOSCOPY 2011 COLORECTAL CANCER SCREENING 2011 FIT TEST 2011 FOBT 2011 SIGMOIDOSCOPY 2011 VIRTUAL COLONOSCOPY 2011 RSV VACCINE (1 - Risk 50-74 years 1-dose series) 01/08/2016 ZOSTER VACCINES (1 of 2) 01/08/2016 DIABETIC EYE EXAM 08/05/2016 URINE MICROALBUMIN/CREATININ E RATIO 08/05/2016 INFLUENZA VACCINE (#1) 2025 6, 03/15/2016 COVID-19 VACCINE (1 - 2024-2 6 season) 2025 HEPATITIS C SCREENING Completed 08/05/2016 HEPATITIS A VACCINES Aged Out No long er eligible based on patient's age to complete this topic HIB VACCINES Aged Out No longer eligi ble based on patient's age to complete this topic MENINGOCOCCAL VACCINES (ACWY) Aged Out No longer eligible based on patient's age to complete this topic MENINGOCOCCAL VACCINES (B) Aged Out N o longer eligible based on patient's age to complete this topic Medical Devices Not on file Procedures Procedure Name Priority Date/Time Associated Diagnosis Comments HEPATITIS C ANTIBODY, QUALITATIVE Routine 08/05/2016 3:36 PM EST Atypical mycobacterial infection Febrile illness Weight loss from Last 3 Months or Most Recently Relevant to Health Maintenance Results * Hepatitis C antibody, qualitative (08/05/2016 3:36 PM EST) HCV ANTIBODY Negative Negative [facility] Comment:Antibodies to HCV no t detected. Does not exclude the possibility of exposure to HCV. 08/05/2016 3:36 PM EST 08/05/2016 5:45 PM EST us Akira Michael MD LAB BLOOD BKR ORDERABLES Final Result [address] [address] from Last 3 Months or Most Recently Relevant to Health Maintenance Insurance MEDICARE PART A & B [facility] MEDICARE PART A & B [facility] PART A & B [facility] MEDICARE [facility] A & [place] B [facility] MEDICARE PART A & B HEALTH MEDICARE PART A & [place] MED[place]ARE PART A & B MEDICARE PART A & B [employer] Care Teams Business Support Relationship Specialty Start Date End Date Jerry López MD [address] [place] [address] [place] [id number] PCP - General Internal Medicine 05/14/18 Additional Source Comments The information contained in this document represents components of the legal health record. It is not the complete legal health record.[facility]
--- OUTSIDE RECORDS SUMMARY | 2025-05-13 15:18 | XMS_ITS | Clinical Summary ---
Author Organization [facility] Address [address] [place] [address] Care Team Providers Care Radiation Oncology Nurse Name Role Phone Unavailable Primary Care Provider [...] DTaP,Tdap,and Td Vaccines (1 - Tdap) 01/08/1988 Mammogram 2006 Pneumococcal Vaccine: 50+ Ye ars (1 of 1 - PCV) 01/08/2016 Zoster Vaccines (1 of 2) 01/08/2016 Alcohol/Substance Use Screening 07/10/2024 Depression Screening and Follow-Up 07/10/2024 Social Drivers of Health Annual Screening 07/10/2024 Influenza Vaccine (#1) 2025 04/11/2016, 2015 RSV Vaccine (60+ years old a nd patients) (1 - 1-dose 75+ series) [address] [place] [address] [facility] [place] [address]
== END 2025-05-13 13:19 | disposition home or self-care (01) ==
LOC: HO.ENCR 12:36
PROVIDERS: PCP Internal Medicine; Visit Provider Internal Medicine Endocrinology, Diabetes & Metabolism
DX: D35.02 Benign neoplasm of left adrenal gland (principal)
CPT/HCPCS: 99213

== ENCOUNTER → 2025-05-13 12:35 | Outpatient (BNVA) | payer MEDICARE, MEDICAID, SELFPAY | PROVIDERS: PCP Internal Medicine; Visit Provider Internal Medicine Endocrinology, Diabetes & Metabolism | DX: D35.02 Benign neoplasm of left adrenal gland (principal) | CPT/HCPCS: 99212 ==

== ENCOUNTER 2025-05-19 13:09 | Outpatient (AMB) | payer MEDICARE, MEDICAID, SELFPAY ==
[2025-05-19 13:17] VITALS: BP 126/84; PULSE 99; O2SAT 96; BMI 23.4
--- NOTE | 2025-05-19 13:17 | MHC.PC.OV ---
Vital Signs 05/19/25 13:17 Height 5 ft 2 in Weight 128 lb BMI 23.4 BP 126/84 Blood Pressure Location Lt brachial Position Sitting Pulse 99 Pulse Source Pulse Oximeter Pulse Oximetry (%) 96 Oxygen Delivery Method Room Air Intake Visit Reasons: pvd [employer] Radio Operator Required: No Accompanied by: Self / Same As Patient Allergies acetaminophen (From TYLENOL) Allergy (Unknown, Verified 05/19/25 13:30) RASH azithromycin (Zithromax Z-Dinesh) Allergy (Unknown, Verified 05/19/25 13:30) GI upset Sulfa (Sulfonamide Antibiotics) (SULFA (SULFONAMIDE ANTIBIOTICS)) Allergy (Unknown, Verified 05/19/25 13:30) ANAPHALACTIC zolpidem Adverse Reaction (Mild, Verified 05/19/25 13:30) Hallucinations Medication List - Last Reconciled 05/19/25 by Jessica Lemus MD albuterol sulfate 90 mcg/actuation 2 puffs inhalation Q4-6H PRN aspirin (Enteric Coated Aspirin) 81 mg PO DAILY atorvastatin 80 mg PO BEDTIME blood pressure monitor As directed blood sugar diagnostic (FreeStyle Lite Strips) check blood sugars twice a day blood-glucose meter (FreeStyle Lite Meter kit) to check blood sugars once a days bupropion HCl XL (Wellbutrin XL) 150 mg PO QAM 90 days carisoprodol (Soma) 350 mg PO QID dexamethasone 1 mg PO ONCE diazepam (Valium) 2 mg PO TID PRN lancets (FreeStyle Lancets) to check blood sugars twice a day lidocaine 1.8% (ZTlido) 0 patches topical metoprolol succinate ER 25 mg PO DAILY montelukast (Singulair) 10 mg PO DAILY 90 days omeprazole 40 mg PO BID ondansetron HCl 4 mg PO Q8H oxycodone 20 mg PO DAILY rivaroxaban (Xarelto) 2.5 mg PO BID Tobacco use date assessed: 05/19/25 Dental Screening Dental Screen Date: 05/19/25 Did you have a dental visit in the last 12 months?: Yes Did you have a dental problem in the last 6 months where you did not have access to dental care?: No Was dental information given to patient?: Patient has dentist HPI HPI Comments History of Present Illness Details The patient is a 60-year-old female presenting for medication management and follow-up of chronic conditions, including a facial abscess, anxiety, and peripheral vascular disease. She has a history of a facial abscess that has been present for eight years, for which she has undergone superficial biopsies that revealed an infection. A punch biopsy was performed last week, and results are pending. The patient feels systemically ill due to the abscess, reporting significant weight loss from 170 to 128 pounds, and notes improvement in well-being only when on antibiotics. The patient is followed by a peripheral vascular surgeon and is scheduled for another surgery on the . An ultrasound performed about a year ago was reportedly normal. She reports severe anxiety and agoraphobia, stating it takes her two hours to mentally prepare to leave her house, as she has been homebound for a long time. She is taking diazepam 2 mg three times a day and is requesting an increase in dosage due to high stress levels. The patient is also followed by an workforce specialist for an adrenal mass; however, her blood work has been deferred due to high stress levels potentially causing false readings. Her current medications include rosuvastatin 40 mg (switched from atorvastatin), Soma, Valium, metoprolol, Singulair, omeprazole, and Xarelto. She has stopped taking bupropion. [facility] Medical History (Updated 05/19/25 @ 13:53 by Jessica Lemus MD) Back pain History of cervical cancer Obesity (BMI 30-39.9) Anxiety Asthma Adenoma of left adrenal gland Surgical History Amputation of toe History of lumbar laminectomy Hx of knee surgery Hx of shoulder surgery History of back surgery Hx of hysterectomy Family History Father Heart disease Hypertension Diabetes Mother No problems noted. Brother No problems noted. Brother No problems noted. Brother No problems noted. Son No problems noted. Social History Housing: Apartment Alcohol intake: never Patient Tobacco Use Status: Current everyday Tobacco user Tobacco use type: Cigarette Cigarettes Per Day: 5 Years Smoked: 25 years e-Cigarette/Vaping Use: Never Used Second Hand Smoke Exposure: No service: No Current occupational status: disabled Cognitive needs: No Hearing needs: No Vision needs: Yes (glasses) Questionnaire PHQ-9 Over the last 2 weeks, how often have you been bothered by any of the following problems? 1. Little interest or pleasure in doing things: more than half the days 2. Feeling down, depressed, or hopeless: more than half the days 3. Trouble falling or staying asleep, or sleeping too much: more than half the days 4. Feeling tired or having little energy: more than half the days 5. Poor appetite or overeating: more than half the days 6. Feeling bad about yourself - or that you are a failure or have let yourself or your family down: more than half the days 7. Trouble concentrating on things, such as reading the newspaper or watching television: more than half the days 8. Moving or speaking so slowly that other people could have noticed. Or the opposite - being so fidgety or restless that you have been moving around a lot more than usual: not at all 9. Thoughts that you would be better off or of hurting yourself in some way: several days Total score: 15 Depression Screening Interpretation: Positive Depression Screening Follow-up: Existing condition and Follow-up Visit Requested Depression Screening Done: Yes 61970 - PHQ-9 Billing: Yes Source: Developed by Drs. Ambrosio Guadarrama, Silvana Howe, Дмитрий Moy and colleagues, with an educational fede from [employer]. Thrive Questionnaire Date Thrive assessed: 05/19/25 I am a: Patient What is your living situation today?: I have a steady place to live Within the past 12 months, did the food you bought not last and you didn't have the money to get more?: Often true Within the past 12 months, did you worry whether your food would run out before you got money to buy more?: Often true Do you have trouble paying for medicines?: No Do you have trouble getting transportation to medical appointments?: Yes Do you have trouble paying your heating and electricity bill?: Yes Do you have trouble taking care of your child, family member or friend?: I choose not to answer this question Do you have trouble with day-to-day activities such as bathing, preparing meals, shopping, managing finances, etc.?: Yes Are you currently unemployed and looking for a job?: I choose not to answer this question Are you interested in more education?: No Please select the resources that you would like help with: None Currently or been in a relationship where the following occur: I choose not to answer THRIVE Score: 4 AUDIT C Alcohol Use Questionnaire (AUDIT-C) 1. How often do you have a drink containing alcohol?: Never 3. How often do you have six or more drinks on one occasion?: Never Total Score: 0 Score Reviewed/Action Taken: No FRANKI-7 AMB Questionnaire FRANKI-7 Date FRANKI - 7 assessed: 05/19/25 Feeling nervous, anxious, or on edge: 1 = Several days Not being able to stop or control worryin = Several days Worrying too much about different things: 1 = Several days Trouble relaxin = Several days Being so restless that it is hard to sit still: 1 = Several days Becoming easily annoyed or irritable: 1 = Several days Feeling afraid as if something awful might happen: 1 = Several days Total FRANKI-7 score (0-4 normal; 5-9 mild; 10-14 moderate; 15-21 severe): 7 Source: Developed by Drs. Ambrosio Guadarrama, Silvana Howe, Дмитрий Moy and colleagues, with an educational fede from [employer]. FRANKI-7 Assessment Billing FRANKI-7 Assessment Tool: FRANKI-7 Assessment 10692 Review of Systems Const All systems reviewed & are unremarkable except as noted in HPI and below Card Denies chest pain at rest, Denies chest pain with activity, Denies edema, Denies irregular heart rhythm, Denies claudication, Denies dyspnea, Denies dyspnea on exertion, Denies orthopnea, Denies paroxysmal nocturnal dyspnea and Denies slow heart rate Resp Denies cough, Denies dyspnea and Denies dyspnea on exertion GI Denies abdominal pain, Denies change in bowel habits, Denies excessive flatus, Denies nausea and Denies vomiting Denies urinary incontinence, Denies urinary hesitancy and Denies urinary urgency Musc Denies abnormal gait, Denies atrophy, Denies deformity and Denies limited range of motion Skin/Breast Denies bleeding lesions, Denies changing lesions and Denies rash Neuro Denies abnormal gait, Denies behavioral changes and Denies lack of coordination Psych Denies behavioral changes Endo Denies cold intolerance Physical exam (Primary Care) Vital Signs: Last Vital Signs Pulse 99 05/19/25 13:17 BP 126/84 05/19/25 13:17 Pulse Ox 96 05/19/25 13:17 Oxygen Delivery Method Room Air 05/19/25 13:17 BMI result Body Mass Index 23.4 Tobacco/Smoking Status: Tobacco use Status Tobacco use date assessed 05/19/25 05/19/25 13:21 Patient Tobacco Use Status Current everyday Tobacco 05/19/25 13:21 Tobacco use type Cigarette 05/19/25 13:21 e-Cigarette/Vaping Use Never Used 05/19/25 13:21 Are you ready to quit: Yes Tobacco cessation counseling provided: Yes Items discussed: Nicotine replacement and QuitWorks Relapse Prevention: discussed the importance of a supportive environment Number of minutes spent counselin CPT code: Less than 3 minutes PHQ-9: PHQ-9 Score PHQ-9: Total score 15 05/19/25 13:21 Depression Screening Interpretation: Positive Depression Screening Follow-up: Existing condition and Follow-up Visit Requested Thrive Assessment: Date of Thrive Assessment Date Thrive assessed 05/19/25 05/19/25 13:21 Currently or been in a relationship where the following occur: I choose not to answer Resp Effort & Inspection: normal respiratory effort Auscultation: clear to auscultation bilaterally Cardio Jugular venous distension: no JVD Rate: regular rate Rhythm: regular rhythm Heart sounds: S1 normal heart sound present and S2 normal heart sound present Extrem General: Yes full ROM Coding Level of Care Code Est Pt Level 4 (67861) Complex EM visit Add On G2211 Diagnoses Anxiety F41.9 Moderate recurrent major depression F33.1 Hyperlipidemia E78.5 Abscess L02.91 PVD (peripheral vascular disease) I73.9 Adenoma of left adrenal gland D35.02 Additional Codes FRANKI-7 Assessment Billing - FRANKI-7 Assessment Tool: FRANKI-7 Assessment 39316 ([id number]) PHQ-9 - 92163 - PHQ-9 Billing: Yes ([id number]) Time Spent (min) 23 Assessment & Plan Assessment & Plan (1) Anxiety: Code(s): F41.9 - Anxiety disorder, unspecified Category: Medical (2) Moderate recurrent major depression: Code(s): F33.1 - Major depressive disorder, recurrent, moderate Category: Medical (3) Hyperlipidemia: Code(s): E78.5 - Hyperlipidemia, unspecified Category: Medical (4) Abscess: Code(s): L02.91 - Cutaneous abscess, unspecified Category: Medical (5) PVD (peripheral vascular disease): Code(s): I73.9 - Peripheral vascular disease, unspecified Category: Medical (6) Adenoma of left adrenal gland: Code(s): D35.02 - Benign neoplasm of left adrenal gland Category: Medical Plan Plan 1. Facial Abscess The patient reports a chronic facial lesion for eight years and feels systemically unwell, with symptoms improving on antibiotics. A punch biopsy was recently performed with results pending. A trial of doxycycline once daily for one month was prescribed to manage a suspected underlying infection. The patient was advised to take the medication with food to reduce potential gastrointestinal side effects. 2. Anxiety Disorder The patient reports severe anxiety and stress, leading to agoraphobic behaviors. Due to ongoing stressors and an upcoming surgery, her diazepam (Valium) dosage was increased from 2 mg to 3 mg (1-1/2 tablets) three times a day to provide better symptom control. The updated prescription will be sent to her pharmacy. 3. Peripheral Vascular Disease The patient is under the care of a vascular surgeon and is scheduled for a procedure on the . Continue current management and follow-up with the vascular specialist as planned. 4. Hyperlipidemia The patient's cholesterol was well-controlled on her last blood test. She is to continue her current rosuvastatin 40 mg daily. A follow-up lipid panel will be ordered in six months along with other routine labs. Orders: Orders Lipid Panel 6 Months E78.5 - Hyperlipidemia, unspecified Comprehensive Pitcher. Panel Fast 6 Months E78.5 - Hyperlipidemia, unspecified MM tomosynthesis screening BI Today Z12.31 - Encounter for screening mammogram for malignant neoplasm of breast Medications: New rosuvastatin 40 mg PO DAILY 90 tabs 1RF 90 days doxycycline hyclate 100 mg PO DAILY 30 caps 0RF 30 days Changed From diazepam (Valium) 2 mg PO TID PRN 90 tabs 0RF anxiety To diazepam (Valium) 2 mg PO TID PRN 135 tabs 0RF anxiety 30 days Discontinued bupropion HCl XL (Wellbutrin XL) Discontinued Reason: Patient Completed Course 150 mg PO QAM 90 days 90 tabs 1RF
--- OUTSIDE RECORDS SUMMARY | 2025-05-19 15:19 | XMS_ITS | Encounter Summary ---
Author Organization [facility] Address [facility] [address] [place] [phone] Phone Care Team Providers Care Citrus Fruit Packer Name Role Phone Unknown, Unknown Primary Care Provider Jerry Hanna MD Primary Care Provider [phone] Encounter Details Date Type Department Care Team (Late st Contact Info) Description 07/25/2017 Procedure Pass [facility] - [facility], [address] [address] Social History Tobacco Use Types Packs/Day Years [...] on filedocumented in this encounter Care Teams Citrus Fruit Packer Relationship Specialty Start Date End Date Unknown, Unknown, PCP - General 06/23/17 05/13/18 Jerry López MD [address] [place] [address] [place] [address] PCP - General Internal Medicine 05/14/18 documented as of this encounter Additional Source Comments The information contained in this document represents components of the legal health record. It is not the complete legal health record.[facility]
--- OUTSIDE RECORDS SUMMARY | 2025-05-19 15:19 | XMS_ITS | Data Portability ---
Author Organization [facility], [facility]- Address [address] [place] [address] Care Team Providers Care Labor Relations Director Name Role Phone Unavailable Line Tender Flakeboard [phone] Assessment Encounter Date Assessment Date Assessment LastModified [...] Name and Address Organization Details Recorded Time 008373 Tylenol medicatio n Not available Not available Not available 04/07/202239220 3 RxNorm jelena preap null, [facility] 2 12:59:16 251301 Substance with sulfonami de structure and antibacte rial mechanism of action (substanc e) medicatio n Not available Not available Not available 04/07/2022 79413 8003 SNOMED jelena preap null, [facility] 2 12:59:22 [id number] clarithro mycin medicatio n Not available Not available Not available 04/07/2022 RxNorm jelena preap null, [facility] 2 12:59:38 Medications Name Sig Start Date [...] Details Last Updated DateTime 04/07/2022 160.02 cm 95797.01 g jelena abad [place] [facility] 04/07/2022 12:59:06 Social History Question Answer Notes LastModified by Organizat ion Details LastModified Time Tobacco Smoking Status Current Every Day Smoker jelena ridley [facility] 04/07/2022 13:00:28 What Is Your Level Of Caffeine Consumption? [...] Smoke? 0.5 PPD Information not available 04/07/2022 Sex: Unknown Functional Status Question Answer Note LastModified by Organizat ion Details LastModified Time Do you use any illicit or recreational drugs? No Information not available 04/07/2022 Do you or have you ever used any other forms of tobacco or nicotine? No Information not available 04/07/2022 What is your level of alcohol consumption? None Information not available 04/07/2022 Mental Status None recorded. Family History Nothing Reported. Medical History Condition Response Coronary Artery Disease N HIV or AIDS N Gout N Migraines N Thyroid Problems N Depression Y Blood Clots N Lung Disease N Pacemaker N Anemia Y Ulcers N Heart Attack (SD) N Anxiety Disorder Y Diabetes Y Bleeding [...] Diagnosis SNOMED-CT Code Diagnosis ICD10 Code Diagnosis IMO Codes Diagnosis Note [id number] AUNG KEATING MD [address] [address] 04/07/2022 12:58:00 04/07/2022 13:30:34 Degenerative lumbar spinal stenosis 592297814 M48.061 Lumbar spondylosis 78576 0009 M47.896 Lumbar radiculopathy 128 945630 M54.16 Pain in lumbar spine 267 164783 M54.50 Health Concerns Section Related Observation LastModified by Organization Detai ls LastModified Time None Recorded Concern Status LastModified by Organization Details LastModified Time None Recorded Advance Directives Directive None Recorded Payers Insurance Date Sequence Insurance Name Policy Number Policy Lux Covered Member ID Lux Member ID Guarantor Name 02/28/2022 [employer] Unknown Arabella Estrada Notes Date Note Type Note Provider Name and Address Organization Details Recorded Time 04/07/2022 text/html ROS as noted in the HPI HPI:57-year-old female who presents today with chronic [...] and not on medication. AUNG KEATING MD [address] [place], [address], [facility] 04/07/2022 13:48:15 OBGyn Episode No OBEpisode recorded.
--- OUTSIDE RECORDS SUMMARY | 2025-05-19 15:19 | XMS_ITS | Clinical Summary ---
Author Organization [facility] Address [address] [place] [address] Phone Care Team Providers Care Electrolysis Engineer Name Role Phone Jerry López MD Primary Care Provider [phone] Allergies Active Allergy Reactions Criticality Noted Date [...] season) 2025 HEPATITIS C SCREENING Completed 08/05/2016 , 08/05/2016 HEPATITIS A VACCINES Aged Out No [...] 3:36 PM EST) HCV ANTIBODY Negative Negative [facility] Comment:Antibodies to HCV no t detected. Does not exclude the possibility of exposure to HCV. 08/05/2016 3:36 PM EST 08/05/2016 5:45 PM EST us Akira Michael MD LAB BLOOD BKR ORDERABLES Final Result [address] [address] from Last 3 Months or Most Recently Relevant to Health Maintenance Insurance MEDICARE PART A & B [facility] MEDICARE PART A & B [place] [facility] & [facility] Member Subscriber Plan / Payer ( fective 2012-Present) Name:Arabella Estrada Member ID:[id number] Relation to Subscriber:Self Name:Arabella Estrada Subscriber ID:[id number] Payer ID:[id number] Group ID:Not on file Type:Medicare Address: [employer] [address] B MEDICARE PART A & B HEALTH MEDICARE PART A & B [id number] [place], [place] [address]HEALTH MEDICARE PART A & B MEDICARE PART A & B [facility] WORKERS COMPENSATION Care Teams Electrolysis Engineer Relationship Specialty Start Date End Date Jerry López MD [address] [place] [address] [place] [address] PCP - General Internal Medicine 05/14/18 Additional Source Comments The information contained in this document represents components of the legal health record. It is not the complete legal health record.[facility]
--- OUTSIDE RECORDS SUMMARY | 2025-05-19 15:19 | XMS_ITS | Encounter Summary ---
Author Organization [facility] Address Formerly [facility] [employer] [facility] [place] [address] [place] [address] Phone Care Team Providers Care Electrical Prospecting Supervisor Name Role Phone Jerry López MD Primary Care Provider [phone] Encounter Details Date Type Department Care Team ([facility] st Contact Info) Description 12/11/2020 Documentation [facility] [address], 4[address] Floor, [address] [place] [address] Karlos Sheehan [place], [place] [address] [place] [phone] [email or web address] Social History Tobacco Use Types Packs/Day Years [...] on filedocumented in this encounter Care Teams Electrical Prospecting Supervisor Relationship Specialty Start Date End Date Jerry López MD [address] [place] [address] [place] [address] PCP - General Internal Medicine 05/14/18 documented as of this encounter Additional Source Comments The information contained in this document represents components of the legal health record. It is not the complete legal health record.[facility]
--- OUTSIDE RECORDS SUMMARY | 2025-05-19 15:19 | XMS_ITS | Clinical Summary ---
Author Organization [facility] Address [address] [place] [address] Care Team Providers Care Truck Switcher Name Role Phone Unavailable Primary Care Provider [...] (1 - 1-dose 75+ series) [address] [place] [address] [facility] [place] [address]
--- OUTSIDE RECORDS SUMMARY | 2025-05-19 15:19 | XMS_ITS | Encounter Summary ---
Author Organization [facility] Address [facility] [employer] [facility] [address] [place], [place] [id number] Phone Care Team Providers Care Stripper Preliminary Name Role Phone Jerry López MD Primary Care Provider [phone] Encounter Details Date Type Department Care Team (Late st Contact Info) Description 05/24/2019 Ancillary Orders [facility] X-Ray - [address] [address] JordanOsmani MD [address] [place] [address] [email or web address] Low back pain, unspecified back pain laterality, [...] present documented in this encounter Care Teams Stripper Preliminary Relationship Specialty Start Date End Date Jerry López MD [address] [place] [address] Dr [address]s [address] [place] [address], [place] [address] PCP - General Internal Medicine 05/14/18 documented as of this encounter Additional Source Comments The information contained in this document represents components of the legal health record. It is not the complete legal health record.[facility]
--- OUTSIDE RECORDS SUMMARY | 2025-05-19 15:19 | XMS_ITS | Encounter Summary ---
Author Organization [facility] Address [address] [place] [address] Phone Care Team Providers Care Interventional Tech Name Role Phone Jerry López MD Primary Care Provider [phone] Encounter Details Date Type Department Care Team (Late st Contact Info) Description 04/07/2020 Procedure Pass [facility] CT, [address] [facility], 2nd Floor, [address] [place] [address] Social History Tobacco Use Types Packs/Day Years [...] on filedocumented in this encounter Care Teams Interventional Tech Relationship Specialty Start Date End Date Jerry López MD [address] [place] [address] [place] [address] PCP - General Internal Medicine 05/14/18 documented as of this encounter Additional Source Comments The information contained in this document represents components of the legal health record. It is not the complete legal health record.[facility]
--- OUTSIDE RECORDS SUMMARY | 2025-05-19 15:19 | XMS_ITS | Clinical Summary ---
Author Organization [facility] [address] [facility] Address [address] [place] [address] Phone Care Team Providers Care Gamewell Operator Name Role Phone Jerry López MD Primary Care Provider [phone] Allergies Active Allergy Reactions Criticality Noted Date [...] Procedure Name Priority Date/Time Associated Diagnosis Comments [facility] SCREENING DIGITAL Routine 03/01/2023 3:00 PM EDT Encounter for screening mammogram for malignant neoplasm of breast from Last 3 Months or Most Recently Relevant to Health Maintenance Results * NABOR SCREENING DIGITAL (03/01/2023 3:00 PM EDT) Anatomical Region Laterality Modality Mammography 03/01/2023 12:3 7 PM EDT Narrative 03/01/2023 3:00 PM EDT [facility] Diagnostic Imaging Department [address] [place] [address] Patient: ARABELLA ESTRADA D.O.B./Age/Sex: 1965 - 58 - F Unit#: [id number] Location/Status: SPDIMAM/REG CLI Mnemonic/Ordering Site: [facility] Ordering Physician: JERRY LÓPEZ MD [facility] Screening Digital - 03/01/23 - 1303 Report Status:Signed EXAM: [facility] Screening Digital EXAM DATE AND TIME: 03/01/2023 1:04 PM HISTORY: Annual screening COMPARISON: 10/15/2021, 02/08/2019, 06/02/2017 TECHNIQUE: Bilateral digital breast tomosynthesis was performed in the CC and MLO projections. Computer aided detection with Tesseract Interactive 3D 3.1 was employed. TISSUE DENSITY: b. [...] Procedure Note Arden Silva MD - 08/15/2023 [facility] Diagnostic Imaging Department [address] [place] [address] Patient: ARABELLA ESTRADA /Age/Sex: 1965 - 58 - F Unit#: [id number] Location/Status: SPDIMAM/REG CLI Mnemonic/Ordering Site: [facility] Ordering Physician: JERRY LÓPEZ MD [facility] Screening Digital - 03/01/23 - 1303 Report Status:Signed EXAM: [facility] Screening Digital EXAM DATE AND TIME: 03/01/2023 1:04 PM HISTORY: Annual screening COMPARISON: 10/15/2021, 02/08/2019, 06/02/2017 TECHNIQUE: Bilateral digital breast tomosynthesis was performed in the CCand MLO projections. Computer aided detection with Tesseract Interactive 3D 3.1was employed. TISSUE DENSITY: b. There [...] by: ARDEN SILVA MD Dic Date/Time: 03/01/23 1928 Sign date/Time: 03/01/23 1500 Jerry López MD IMG BI PROCEDURES Final Result from Last 3 Months or Most Recently Relevant to Health Maintenance Insurance MEDICARE [place]ICA[place] - [place] Care Teams Gamewell Operator Relationship Specialty Start Date End Date Jerry López MD [address] [place] [address] Drive [address] [place] [address] PCP - General Internal Medicine 02/05/21
== END 2025-05-19 13:47 | disposition home or self-care (01) ==
LOC: HO.HMCH 13:10
PROVIDERS: PCP Internal Medicine; Visit Provider Internal Medicine
DX: F41.9 Anxiety disorder, unspecified (principal); F33.1 Major depressive disorder, recurrent, moderate; E78.5 Hyperlipidemia, unspecified; L02.91 Cutaneous abscess, unspecified; I73.9 Peripheral vascular disease, unspecified; D35.02 Benign neoplasm of left adrenal gland

== ENCOUNTER → 2025-05-19 13:09 | Outpatient (BNVA) | payer MEDICARE, MEDICAID, SELFPAY | PROVIDERS: PCP Internal Medicine; Visit Provider Internal Medicine | DX: F33.1 Major depressive disorder, recurrent, moderate (principal); F41.9 Anxiety disorder, unspecified; E78.5 Hyperlipidemia, unspecified; L02.91 Cutaneous abscess, unspecified; I73.9 Peripheral vascular disease, unspecified; D35.02 Benign neoplasm of left adrenal gland; Z13.31 Encounter for screening for depression; Z13.39 Encounter for screening examination for other mental health and behavioral disorders | CPT/HCPCS: 96127; 99212 ==

== ENCOUNTER 2025-05-23 12:44 | Outpatient (AMB) | payer MEDICARE, MEDICAID, SELFPAY ==
[2025-05-23 13:01] VITALS: BP 120/74; PULSE 90; BMI 23.8
--- NOTE | 2025-05-23 13:01 | A.OFFVIS_ITS ---
Vital Signs 05/23/25 13:01 Height 5 ft 2 in Weight 130 lb 1.164 oz BMI 23.8 BP 120/74 Blood Pressure Location Lt brachial Position Sitting Pulse 90 Intake Visit Reasons: 6m follow up r/s 01/23/25 & 04-07-25 Intake Note: 6 month follow-up hearts doing good Potato Picker Required: No Allergies acetaminophen (From TYLENOL) Allergy (Unknown, Verified 05/19/25 13:30) RASH azithromycin (Zithromax Z-Dinesh) Allergy (Unknown, Verified 05/19/25 13:30) GI upset Sulfa (Sulfonamide Antibiotics) (SULFA (SULFONAMIDE ANTIBIOTICS)) Allergy (Unknown, Verified 05/19/25 13:30) ANAPHALACTIC zolpidem Adverse Reaction (Mild, Verified 05/19/25 13:30) Hallucinations Medication List - Last Reconciled 05/23/25 by Wendy Ortega NP-C albuterol sulfate 90 mcg/actuation 2 puffs inhalation Q4-6H PRN aspirin (Enteric Coated Aspirin) 81 mg PO DAILY blood pressure monitor As directed blood sugar diagnostic (FreeStyle Lite Strips) check blood sugars twice a day blood-glucose meter (FreeStyle Lite Meter kit) to check blood sugars once a days carisoprodol (Soma) 350 mg PO QID dexamethasone 1 mg PO ONCE diazepam (Valium) 2 mg PO TID PRN 30 days doxycycline hyclate 100 mg PO DAILY 30 days lancets (FreeStyle Lancets) to check blood sugars twice a day lidocaine 1.8% (ZTlido) 0 patches topical metoprolol succinate ER 25 mg PO DAILY montelukast (Singulair) 10 mg PO DAILY 90 days omeprazole 40 mg PO BID ondansetron HCl 4 mg PO Q8H oxycodone 20 mg PO DAILY rivaroxaban (Xarelto) 2.5 mg PO BID rosuvastatin 40 mg PO DAILY 90 days HPI HPI 6m follow up r/s 01/23/25 & 04-07-25: Details: Arabella is a 60-year-old female past medical history diabetes, hyperlipidemia, smoking, coronary calcifications on CT scan, nonobstructive CAD, peripheral vascular disease who presents for follow-up. Today she reports that since her last visit she had some of the toes on her left foot amputated. She has undergone angioplasty to the left leg and tells me she needs to have it again. She is very frustrated over the condition of her left leg. She has a facial/oral abscess that she says has been present for several years. She has recently undergone a biopsy in his waiting for the results. She believes this is causing all of her problems. She is going to start on an antibiotic to see if that helps to improve the condition. She has not been getting any chest pains at rest or with activity. She has no concerning shortness of breath, palpitations, presyncope, syncope, PND, orthopnea or edema. She is taking all meds as directed. She does only light physical activities. [facility] Medical History Back pain History of cervical cancer Obesity (BMI 30-39.9) Anxiety Asthma Adenoma of left adrenal gland Surgical History Amputation of toe History of lumbar laminectomy Hx of knee surgery Hx of shoulder surgery History of back surgery Hx of hysterectomy Family History Father Heart disease Hypertension Diabetes Mother No problems noted. Brother No problems noted. Brother No problems noted. Brother No problems noted. Son No problems noted. Social History Housing: Apartment Alcohol intake: never Patient Tobacco Use Status: Current everyday Tobacco user Tobacco use type: Cigarette Cigarettes Per Day: 5 Years Smoked: 25 years e-Cigarette/Vaping Use: Never Used Second Hand Smoke Exposure: No service: No Current occupational status: disabled Cognitive needs: No Hearing needs: No Vision needs: Yes (glasses) Review of Systems Const All systems reviewed & are unremarkable except as noted in HPI and below Denies chills, Denies fatigue, Denies fever(s), Denies frequent falls, Denies weakness, Denies weight gain and Denies weight loss ENT Denies dizziness Card Denies chest pain, Denies leg edema, Denies lightheadedness, Denies palpitations, Denies dyspnea, Denies dyspnea on exertion, Denies orthopnea and Denies other (loss of consciousness) Resp Denies cough, Denies dyspnea and Denies dyspnea on exertion GI Denies hematochezia and Denies change in stool character Musc Details: Foot pain from toe amputations Denies abnormal gait, Denies muscle weakness, Denies numbness, Denies radiating pain into limb and Denies tingling Neuro Denies abnormal gait, Denies dizziness, Denies frequent falls, Denies numbness, Denies tingling and Denies weakness Endo Denies fatigue and Denies palpitations Physical Exam Vital Signs: Last Vital Signs Pulse 90 05/23/25 13:01 BP 120/74 05/23/25 13:01 BMI result Body Mass Index 23.8 Const Other: Wearing mask General: cooperative, healthy appearing, comfortable and no acute distress Orientation/consciousness: patient oriented x3 Neck Neck: Yes normal visual inspection Resp Effort & Inspection: normal respiratory effort Auscultation: clear to auscultation bilaterally, no crackles, no rales, no rhonchi and no wheezes Cardio Jugular venous distension: no JVD Rate: regular rate Rhythm: regular rhythm Heart sounds: S1 normal heart sound present, S2 normal heart sound present, no gallops, Murmur heart sound present (Systolic) and no rubs Neuro General: patient oriented x3 Extrem Other: dressing on wounds left toes Psych Appearance: grossly normal Mental Status: mental status grossly normal Speech and movement: Normal speech and movement present Assessment & Plan Assessment & Plan (1) Coronary artery disease: Code(s): I25.10 - Atherosclerotic heart disease of [place] coronary artery without angina pectoris Category: Medical Plan: Prior reports of Reports of mid chest discomfort under situations of high stress. Cardiac risk factors of diabetes, hyperlipidemia, smoking. Exercise stress test was suboptimal. A CTA of the coronary arteries was done on 04/28/2023 showing no evidence of hemodynamically significant coronary artery disease, small plaque in the distal left main extending into the proximal LAD with mild stenosis of approximately 35% in the proximal LAD and less than 25% in the left main, scattered minimal stenosis in the remaining LAD and RCA. She has mild nonobstructive coronary disease which is being managed medically. Currently asymptomatic. Continue risk factor modification. Continue aspirin indefinitely. Continue rosuvastatin with ideal LDL goal less than 70. Continue metoprolol. Signs and symptoms of angina reviewed with her. Emergency care if ever needed for symptoms. Cardiology follow-up in 6 months, sooner if needed. (2) Hyperlipidemia: Code(s): E78.5 - Hyperlipidemia, unspecified Category: Medical Plan: [place] LDL goal less than 70 and patient with diabetes and coronary calcifications. Labs done 01/24/2025 shows LDL 65. Continue rosuvastatin. (3) Aortic stenosis: Code(s): I35.0 - Nonrheumatic aortic (valve) stenosis Category: Medical Plan: Mild aortic stenosis noted on echocardiogram. Faint murmur noted on examination. Will plan repeat echocardiogram prior to next visit. Plan I discussed with the patient the importance of continuing her current medications, including aspirin and Xarelto, to maintain blood flow and prevent clotting. We reviewed the need for monitoring cholesterol levels with rosuvastatin therapy and the plan to schedule a follow-up echocardiogram in one year to assess the aortic valve status. We also talked about the potential future angioplasty for her peripheral vascular disease. I advised her to monitor foot swelling and mobility issues. Regarding her facial abscess, we are awaiting biopsy results to determine further treatment options, and I mentioned the possibility of antibiotics if an infection is confirmed. We addressed her anxiety related to health concerns and provided reassurance. Patient Instructions: - Continue taking aspirin and Xarelto as prescribed. - Continue rosuvastatin. - Schedule a follow-up echocardiogram in one year. - Await biopsy results for facial abscess treatment options. Patient was informed and verbally consented to the use of an ambient scribe for clinic note documentation during this visit. Visit time spent on chart review, interview, assessment, orders, documentation. Coding Level of Care Code Est Pt Level 4 (01956) Complex EM visit Add On G2211 Diagnoses Coronary artery disease I25.10 Hyperlipidemia E78.5 Aortic stenosis I35.0 Time Spent (min) 28
--- OUTSIDE RECORDS SUMMARY | 2025-05-23 18:39 | XMS_ITS | Encounter Summary ---
Author Organization [facility] Address [address] [place] [address] Phone Care Team Providers Care Printing Machine Mechanic Name Role Phone Jerry López MD Primary Care Provider [phone] Encounter Details Date Type Department Care Team (Late st Contact Info) Description 04/07/2020 Procedure Pass [facility] CT, [address] [facility], 2nd Floor, [address] [place] [address] Social History Tobacco Use Types Packs/Day Years [...] on filedocumented in this encounter Care Teams Printing Machine Mechanic Relationship Specialty Start Date End Date Jerry López MD [address] [place] [address] [place] [address] PCP - General Internal Medicine 05/14/18 documented as of this encounter Additional Source Comments The information contained in this document represents components of the legal health record. It is not the complete legal health record.[facility]
--- OUTSIDE RECORDS SUMMARY | 2025-05-23 18:39 | XMS_ITS | Clinical Summary ---
Author Organization [facility] Address [address] [place] [address] Phone Care Team Providers Care Chaser Tar Name Role Phone Jerry López MD Primary Care Provider [phone] Allergies Active Allergy Reactions Criticality Noted Date [...] patient's age to complete this topic IPV VACCINES Aged Out No longer eligi ble [...] 3:36 PM EST) HCV ANTIBODY Negative Negative [facility] Comment:Antibodies to HCV no t detected. Does not exclude the possibility of exposure to HCV. 08/05/2016 3:36 PM EST 08/05/2016 5:45 PM EST us Akira Michael MD LAB BLOOD BKR ORDERABLES Final Result [address] [address] from Last 3 Months or Most Recently Relevant to Health Maintenance Insurance MEDICARE PART A & B [facility] MEDICARE PART A & B Member Subscriber Plan / Payer (Ef fective 2012-) Name:Arabella Estrada Member ID:[id number] Relation to Subscriber:Self Name:Arabella Estrada Subscriber ID:[id number] Payer ID:[id number] Group ID:Not on file Type:Medicare Address: [employer] [address] MEDICARE PART A & B HEALTH MEDICARE PART A & B [id number] [place] [address] MEDICARE PART A & B MEDICARE PART A & B MEDICARE PART A & B Member Subscriber Plan / Payer ( fective 2012-Present) Name:Arabella Estrada Member ID:[id number] Relation to Subscriber:Self Name:Arabella Estrada Subscriber ID:[id number] Payer ID:[id number] Group ID:Not on file Type:Medicare Address: [employer] [address] [place] [phone] [facility] MEDICARE PART A & B [facility] WORKERS COMPENSATION Care Teams Chaser Tar Relationship Specialty Start Date End Date Jerry López MD [address] [place] [address] [place] [address] PCP - General Internal Medicine 05/14/18 Additional Source Comments The information contained in this document represents components of the legal health record. It is not the complete legal health record.[facility]
--- OUTSIDE RECORDS SUMMARY | 2025-05-23 18:39 | XMS_ITS | Clinical Summary ---
Author Organization [facility] Address [address] [place] [address] Care Team Providers Care Electric Freight Car Operator Name Role Phone Jerry López MD Primary Care Provider [phone] Allergies Active Allergy Reactions Criticality Noted Date [...] age to complete this topic Care Teams Electric Freight Car Operator Relationship Specialty Start Date End Date Jerry López MD [address] [place] [address] [place] [address] PCP - General Internal Medicine 02/05/21
--- OUTSIDE RECORDS SUMMARY | 2025-05-23 18:39 | XMS_ITS | Encounter Summary ---
Author Organization [facility] Address Critical access hospital Ping Communication [facility] [address] [place] [address] Phone Care Team Providers Care Meat Selector Name Role Phone Unknown, Unknown Primary Care Provider Jerry Hanna MD Primary Care Provider [phone] Encounter Details Date Type Department Care Team (Late st Contact Info) Description 07/25/2017 Procedure Pass [facility] - [facility], [facility] [address] [place] [address] Social History Tobacco Use Types Packs/Day Years [...] on filedocumented in this encounter Care Teams Meat Selector Relationship Specialty Start Date End Date Unknown, Unknown, PCP - General 06/23/17 05/13/18 Jerry López MD [address] [place] [address] [place] [address] PCP - General Internal Medicine 05/14/18 documented as of this encounter Additional Source Comments The information contained in this document represents components of the legal health record. It is not the complete legal health record.[facility]
--- OUTSIDE RECORDS SUMMARY | 2025-05-23 18:39 | XMS_ITS | Data Portability ---
Author Organization [place] [facility], [facility]- Address [address] [place] [address] Care Team Providers Care Dredge Deckhand Name Role Phone Unavailable Cause Analyst [phone] Assessment Encounter Date Assessment Date Assessment LastModified [...] Name and Address Organization Details Recorded Time 223666 Tylenol medicatio n Not available Not available Not available 04/07/202262840 3 RxNorm jelena preap null, [facility] 2 12:59:16 [id number] Substance with sulfonami de structure and antibacte rial mechanism of action (substanc e) medicatio n Not available Not available Not available 04/07/2022 68089 8003 SNOMED jelena preap null, [facility] 2 12:59:22 913378 clarithro mycin medicatio n Not available Not available Not available 04/07/2022 RxNorm jelena preap null, [facility] 2 12:59:38 Medications Name Sig [...] Details Last Updated DateTime 04/07/2022 160.02 cm 83576.01 g jelena abad [place] [facility] 04/07/2022 12:59:06 Social History Question Answer Notes LastModified by Organizat ion Details LastModified Time Tobacco Smoking Status Current Every Day Smoker jelena ridley [place] [facility] 04/07/2022 13:00:28 What [...] N Anemia Y Ulcers N Heart Attack (ND) N Anxiety Disorder Y Diabetes Y Bleeding [...] ICD10 Code Diagnosis IMO Codes Diagnosis Note [id number] AUNG KEATING MD [address] [address] 04/07/2022 12:58:00 04/07/2022 13:30:34 Degenerative lumbar spinal stenosis 995770543 M48.061 Lumbar spondylosis 40174 0009 M47.896 Lumbar radiculopathy 128 178248 M54.16 Pain in lumbar spine 267 937376 M54.50 Health Concerns Section Related Observation LastModified [...] not on medication. AUNG KEATING MD [address] [place], [address], [facility] - [facility] 04/07/2022 13:48:15 OBGyn Episode No OBEpisode recorded.
--- OUTSIDE RECORDS SUMMARY | 2025-05-23 18:39 | XMS_ITS | Encounter Summary ---
Author Organization [facility] Address [facility] [employer] [facility] [address] [place], [place] [phone] Phone Care Team Providers Care Last Sorter Name Role Phone Jerry López MD Primary Care Provider [phone] Encounter Details Date Type Department Care Team (Late st Contact Info) Description 05/24/2019 Ancillary Orders [facility], X-Ray - [address] [address] JordanOsmani santos MD [address] [place] [address] [email or web address] Low back pain, unspecified back pain laterality, [...] present documented in this encounter Care Teams Last Sorter Relationship Specialty Start Date End Date Jerry López MD [address] [place] [address] Dr Crews [address] [place] [address], [place] [address] PCP - General Internal Medicine 05/14/18 documented as of this encounter Additional Source Comments The information contained in this document represents components of the legal health record. It is not the complete legal health record.[facility]
--- OUTSIDE RECORDS SUMMARY | 2025-05-23 18:40 | XMS_ITS | Clinical Summary ---
Author Organization [facility] Address [address] [place] [address] Care Team Providers Care Registrar [employer] Name Role Phone Unavailable Primary Care Provider [...] 07/10/2024 Influenza Vaccine (#1) 2025 04/11/2016, [address] [place] [id number] [place] [address] [facility] [address]
--- OUTSIDE RECORDS SUMMARY | 2025-05-23 18:40 | XMS_ITS | Encounter Summary ---
Author Organization [facility] Address [facility] [address] [place] [address] Phone Care Team Providers Care Packaging Line Operator Name Role Phone Jerry López MD Primary Care Provider Encounter Details Date Type Department Care Team ([facility] st Contact Info) Description 12/11/2020 Documentation [facility] Rheumatology [address] Floor, [address] [place] [address] Karlos Sheehan [place], [place] [address] [place] [phone] [email or web address] Social History Tobacco Use Types Packs/Day Years [...] on filedocumented in this encounter Care Teams Packaging Line Operator Relationship Specialty Start Date End Date Jerry López MD [address] [place] [address] [place] [address] PCP - General Internal Medicine 05/14/18 documented as of this encounter Additional Source Comments The information contained in this document represents components of the legal health record. It is not the complete legal health record.[facility]
--- OUTSIDE RECORDS SUMMARY | 2025-05-23 18:40 | XMS_ITS | Clinical Summary ---
Author Organization [facility] [address] [facility] Address [address] [place] [address] Phone Care Team Providers Care Carry In Worker Name Role Phone Jerry López MD Primary Care Provider [phone] Allergies Active Allergy Reactions Criticality Noted Date [...] Depression Screening 07/10/2024 Breast Cancer Screening 03/01/2025 03/01/20, 10/15/2021 COVID-19 Vaccine ( - 2024-2 6 season) 2025 Influenza Vaccine (#1) 2025 , 03/15/2016 Hepatitis C Screening Completed 08/05/2016 HIB [...] Procedure Name Priority Date/Time Associated Diagnosis Comments [facility] SCREENING DIGITAL Routine 03/01/2023 3:00 PM EDT Encounter for screening mammogram for malignant neoplasm of breast from Last 3 Months or Most Recently Relevant to Health Maintenance Results * [facility] SCREENING DIGITAL (03/01/2023 3:00 PM EDT) Anatomical Region Laterality Modality Mammography 03/01/2023 12:3 7 PM EDT Narrative 03/01/2023 3:00 PM EDT [facility] Diagnostic Imaging Department [address] [place] [address] Patient: ARABELLA ESTRADA D.O.B./Age/Sex: 1965 - 58 - F Unit#: [id number] Location/Status: SPDIMAM/REG CLI Mnemonic/Ordering Site: [facility] Ordering Physician: JERRY LÓPEZ MD [facility] Screening Digital - 03/01/23 - 1303 Report Status:Signed EXAM: [facility] Screening Digital EXAM DATE AND TIME: 03/01/2023 1:04 PM HISTORY: Annual screening COMPARISON: 10/15/2021, 02/08/2019, 06/02/2017 TECHNIQUE: Bilateral digital breast tomosynthesis was performed in the CC and MLO projections. Computer aided detection with UpDroid 3D 3.1 was employed. TISSUE DENSITY: b. [...] Procedure Note Arden Silva MD - 08/15/2023 [facility] Diagnostic Imaging Department [address] [place] [address] Patient: ARABELLA ESTRADA /Age/Sex: 1965 - 58 - F Unit#: [id number] Location/Status: SPDIMAM/REG CLI Mnemonic/Ordering Site: [facility] Ordering Physician: JERRY LÓPEZ MD [facility] Screening Digital - 03/01/23 - 1303 Report Status:Signed EXAM: [facility] Screening Digital EXAM DATE AND TIME: 03/01/2023 1:04 PM HISTORY: Annual screening COMPARISON: 10/15/2021, 02/08/2019, 06/02/2017 TECHNIQUE: Bilateral digital breast tomosynthesis was performed in the CCand MLO projections. Computer aided detection with UpDroid 3D 3.1was employed. TISSUE DENSITY: b. There [...] in 1 year. 3341F, 7025F Dictating Physician: AREDN SILVA MD Electronically Signed by: ARDEN SILVA MD Dic Date/Time: 03/01/23 2748 Sign date/Time: 03/01/23 1500 Jerry López MD IMG BI PROCEDURES Final Result from Last 3 Months or Most Recently Relevant to Health Maintenance Insurance MEDICARE [place]ICAID - [place] Care Teams Carry In Worker Relationship Specialty Start Date End Date Jerry Lóepz MD [address] [place] [address] Drive [address] [place] [address] PCP - General Internal Medicine 02/05/21
== END 2025-05-23 13:24 | disposition home or self-care (01) ==
LOC: HO.HCS 12:45
PROVIDERS: PCP Internal Medicine; Visit Provider Nurse Practitioner Family
DX: I25.10 Atherosclerotic heart disease of native coronary artery without angina pectoris (principal); E78.5 Hyperlipidemia, unspecified; I35.0 Nonrheumatic aortic (valve) stenosis
CPT/HCPCS: 99214; G2211

== ENCOUNTER → 2025-05-23 12:44 | Outpatient (BNVA) | payer MEDICARE, MEDICAID, SELFPAY | PROVIDERS: PCP Internal Medicine; Visit Provider Nurse Practitioner Family | DX: I25.10 Atherosclerotic heart disease of native coronary artery without angina pectoris (principal); E78.5 Hyperlipidemia, unspecified; I35.0 Nonrheumatic aortic (valve) stenosis; Z79.82 Long term (current) use of aspirin; Z79.01 Long term (current) use of anticoagulants; Z72.0 Tobacco use; Z89.422 Acquired absence of other left toe(s); I25.83 Coronary atherosclerosis due to lipid rich plaque | CPT/HCPCS: 99212 ==